=== PATIENT | female | born 1990 ===

== ENCOUNTER 2021-07-25 15:56 | Emergency (ER) | payer OTHER, BC, MEDICAID, SELFPAY ==
[2021-07-25 16:01] VITALS: BP 147/89; PULSE 106; RESP 18; TEMP 35.9; O2SAT 98; BMI 52.1
[2021-07-25 16:19] LABS: UPreg QC Valid YES; Urine Pregnancy NEGATIVE (NEGATIVE)
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
== END 2021-07-25 17:09 | disposition home or self-care (01) ==
PROVIDERS: Emergency Provider Emergency Medicine; PCP Internal Medicine
DX: T14.8XXA Other injury of unspecified body region, initial encounter (principal); V49.40XA Driver injured in collision with unspecified motor vehicles in traffic accident, initial encounter; Y93.9 Activity, unspecified; Y92.481 Parking lot as the place of occurrence of the external cause; Y99.9 Unspecified external cause status
CPT/HCPCS: 81025; 99283; 99284

== ENCOUNTER 2022-12-28 09:10 | Outpatient (REF) | payer OTHER, SELFPAY ==
[2022-12-28 09:26] LABS: MANUAL DIFF FLAG NO
[2022-12-28 09:44] LABS: Basophils Absolute Auto 0.1 X10*3/uL (0.0-0.2); Basophils Percent Auto 0.8 % (0-2); Eosinophils Absolute Auto 0.3 X10*3/uL (0.0-0.4); Eosinophils Percent Auto 4.2 % (0-4); Hemoglobin 15.5 g/dl (12.0-16.0); Imm Gran Abs Auto 0.03 X10*3/uL (0.00-0.03); Imm Gran Pct Auto 0.5 % (0.0-0.4); Lymphocytes Absolute Auto 1.3 X10*3/uL (1.2-4.9); Lymphocytes Percent Auto 20.7 % (20-40); Mean Corpuscular HGB Conc 34.4 g/dl (31.0-35.0); Mean Corpuscular Hemoglobin 28.9 pg (27.0-33.0); Monocytes Absolute Auto 0.7 X10*3/uL (0.1-1.2); Monocytes Percent Auto 10.4 % (2-11); Neutrophils Absolute Auto 4.1 x10*3/uL (2.0-8.3); Neutrophils Percent Auto 63.4 % (45-73); Platelet Count 348 X10*3/uL (160-400); Red Blood Count 5.36 X10*6/uL (4.20-5.50); White Blood Count 6.5 X10*3/uL (4.8-10.8)
[2022-12-28 10:24] LABS: Alanine Aminotransferase 149 U/L (0-31); Albumin Level 4.1 g/dL (3.5-5.0); Alkaline Phosphatase 104 U/L (39-117); Anion Gap 14 (12-20); Aspartate Amino Transferase 100 U/L (5-31); Bilirubin Total 1.1 mg/dL (0.0-1.0); Blood Urea Nitrogen 11 mg/dL (9-16); Calcium 9.4 mg/dL (8.4-10.2); Carbon Dioxide 28 mmol/L (22-29); Chloride 104 mmol/L (96-108); Cholesterol 134 mg/dL; Estimated Glomerular Filt Rate > 60; Glucose Random 105 mg/dL (60-115); HDL Cholesterol 22 mg/dL; LDL Cholesterol Calculated 90 mg/dl; Potassium 3.7 mmol/L (3.3-5.1); Sodium 142 mmol/L (135-145); Total Protein 7.4 g/dL (6.5-8.0); Triglycerides 111 mg/dL
[2022-12-28 10:26] LABS: TSH reflex Free T4 1.15 uIU/mL (0.32-4.0)
== END 2022-12-28 09:11 | disposition home or self-care (01) ==
LOC: HO.LAB 09:10
PROVIDERS: PCP Internal Medicine; Visit Provider Nurse Practitioner Family
DX: Z13.0 Encounter for screening for diseases of the blood and blood-forming organs and certain disorders involving the immune mechanism (principal); Z13.29 Encounter for screening for other suspected endocrine disorder; Z13.220 Encounter for screening for lipoid disorders; R19.7 Diarrhea, unspecified
CPT/HCPCS: 36415; 80053; 80061; 84443; 85025

== ENCOUNTER 2022-12-29 12:41 | Outpatient (REF) | payer OTHER, SELFPAY ==
[2022-12-29 14:59] LABS: INTERNATIONAL NORM RATIO 1.1 (0.9-1.1)
[2022-12-29 15:02] LABS: Estimated Average Glucose 100 mg/dL; Hemoglobin A1c % 5.1 %
[2022-12-29 15:23] LABS: Alanine Aminotransferase 131 U/L (0-31); Albumin Level 4.1 g/dL (3.5-5.0); Alkaline Phosphatase 109 U/L (39-117); Aspartate Amino Transferase 75 U/L (5-31); Bilirubin Direct 0.3 mg/dL (0.0-0.5); Bilirubin Total 0.8 mg/dL (0.0-1.0); Total Protein 7.2 g/dL (6.5-8.0)
[2023-01-01 03:46] LABS: HBc Num1 0.18 S/CO (0.00-0.79); HBsAGNum1 0.35 S/CO (0.00-0.99); Hepatitis A Antibody IgM 0.15 Index (0-0.79); Hepatitis B Core Antibody Nonreactive (Nonreactive); Hepatitis B Surface Antigen Negative (Negative); ~HepC Num1 0.15 S/CO (0.00-0.79); ~Hepatitis A Antibody IgM Nonreactive (Nonreactive); ~Hepatitis B Surface Antibody NONREACTIVE (Nonreactive); ~Hepatitis C Antibody Nonreactive (Nonreactive)
== END 2022-12-29 12:42 | disposition home or self-care (01) ==
LOC: HO.LAB 12:41
PROVIDERS: PCP Nurse Practitioner Family; Referring Provider Nurse Practitioner Family; Visit Provider Surgery
DX: E66.01 Morbid (severe) obesity due to excess calories (principal); R10.9 Unspecified abdominal pain; R79.89 Other specified abnormal findings of blood chemistry; E65 Localized adiposity; Z68.43 Body mass index [BMI] 50.0-59.9, adult; Z87.59 Personal history of other complications of pregnancy, childbirth and the puerperium
CPT/HCPCS: 36415; 80076; 83036; 84134; 85610; 86704; 86706; 86709; 86803; 87340; 99202

== ENCOUNTER 2023-01-18 07:17 | Outpatient (REF) | payer OTHER, SELFPAY ==
--- NOTE | ~2023-01-18 | CT_ITS ---
EXAMINATION: CT ABDOMEN AND PELVIS WITH CONTRAST CLINICAL INFORMATION: Valsalva to assess for hernia. COMPARISON: CT of 08/11/2010. TECHNIQUE: Multidetector volumetric images were obtained from the superior aspect of the liver through the pubic symphysis following administration 85 mL of Omnipaque 350 intravenous contrast. Sagittal and coronal reformatted images were obtained on the technologist's workstation. Oral contrast: Yes This CT examination was performed using dose optimization techniques as appropriate, variously including the following: *Automated exposure control *Adjustment of mA and/or kV according to patient size (this includes techniques or standardized protocols for targeted exams where dose is matched to indication/reason for exam; i.e. extremities or head) *Use of iterative reconstruction technique DLP: 1915 mGy-cm FINDINGS: LUNG BASES: The visualized lung bases are unremarkable. LIVER, GALLBLADDER, AND BILIARY TREE: Enlarged fatty liver without discrete mass or ductal dilatation. The gallbladder is unremarkable with no evidence of radiopaque gallstones, gallbladder wall thickening, or obvious pericholecystic inflammatory changes. PANCREAS: No discrete pancreatic mass. No ductal dilatation. SPLEEN: Normal size. No mass. ADRENAL GLANDS: No adrenal mass. KIDNEYS AND URETERS: The kidneys are normal in size, shape, and attenuation. No hydronephrosis, hydroureter, or calculi seen. No perinephric stranding. BLADDER: Unremarkable. GASTROINTESTINAL TRACT: The small bowel is normal in caliber. No mesenteric mass or fluid. The appendix is not discretely seen. No pericecal inflammatory changes. The large bowel is normal in caliber no evidence of colitis. ABDOMINAL WALL: There is generalized laxity of the abdominal wall with diastases recti measuring 6 cm. There is a small fat-containing umbilical hernia which is slightly more prominent with Valsalva. The hernia neck measures 7 x 8 mm. The hernia sac measures 1.0 x 1.7 x 1.5 cm. LYMPH NODES: No adenopathy. VASCULAR: No aortic aneurysm. PELVIC VISCERA: The uterus and adnexa are unremarkable. An IUD is in place. OSSEOUS STRUCTURES: Degenerative changes in the spine. No suspicious osseous lesions. CT/CT abdomen pelvis w IV con IMPRESSION: Small fat-containing umbilical hernia. Fleischner guidelines were followed.
--- NOTE | ~2023-01-18 | US_ITS ---
EXAMINATION: US ABDOMEN COMPLETE CLINICAL INFORMATION: Other specified abnormal findings of blood chemistry. COMPARISON: CT abdomen and pelvis 01/18/2023. TECHNIQUE: Real-time imaging of the abdominal viscera. FINDINGS: PANCREAS: Normal. ABDOMINAL AORTA: The proximal, mid, and distal segments are normal in caliber. INFERIOR VENA CAVA: Visualized portions are normal. LIVER: The liver is enlarged. The liver contour is normal. There is diffuse increased liver parenchymal echogenicity, consistent with hepatic steatosis. No focal hepatic lesion. There is no intrahepatic biliary duct dilatation seen. GALLBLADDER: Normal. The gallbladder is physiologically distended without evidence of stones, sludge, polyps, wall thickening or pericholecystic fluid. COMMON BILE DUCT: Normal in caliber measuring 0.6 cm in diameter. RIGHT KIDNEY: Normal. No hydronephrosis. No renal calculi or focal parenchymal lesions. The kidney measures 11.7 cm in maximum dimension. LEFT KIDNEY: Normal. No hydronephrosis. No renal calculi or focal parenchymal lesions. The kidney measures 12.0 cm in maximum dimension. SPLEEN: Normal. The spleen measures 11.5 cm in maximum dimension. FREE FLUID: None. US/US abdomen complete IMPRESSION: Enlarged fatty liver. No biliary ductal dilatation.
[2023-01-18] MEDS: Barium Sulfate Oral (Berry) 450 ML ORAL.SUSP 900 ML PO (09:56)
[2023-01-18] MEDS: iohexoL 350 MG/ML 100 ML INFUS..BTL IV (09:57)
== END 2023-01-18 07:18 | disposition home or self-care (01) ==
LOC: HO.CT 07:17
PROVIDERS: PCP Nurse Practitioner Family; Visit Provider Surgery
DX: R10.9 Unspecified abdominal pain (principal); E66.01 Morbid (severe) obesity due to excess calories; Z68.43 Body mass index [BMI] 50.0-59.9, adult; R79.89 Other specified abnormal findings of blood chemistry
CPT/HCPCS: 74177; 76700; Q9967

== ENCOUNTER → 2023-02-05 10:11 | Outpatient (BNVA) | payer OTHER, SELFPAY | PROVIDERS: PCP Nurse Practitioner Family; Visit Provider Surgery | DX: K76.0 Fatty (change of) liver, not elsewhere classified (principal); R79.89 Other specified abnormal findings of blood chemistry; R10.9 Unspecified abdominal pain; E66.01 Morbid (severe) obesity due to excess calories; Z68.43 Body mass index [BMI] 50.0-59.9, adult | CPT/HCPCS: 99212 ==

== ENCOUNTER → 2023-03-23 13:00 | Outpatient (BNVA) | payer OTHER, SELFPAY | PROVIDERS: PCP Nurse Practitioner Family; Visit Provider Physician Assistant Surgical ==

== ENCOUNTER 2023-04-05 13:59 | Outpatient (AMB) | payer OTHER, SELFPAY ==
--- NOTE | 2023-04-05 14:01 | A.OFFVIS_ITS ---
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 Her goal is to be healthy.. She reports first being concerned about her weight age 9. DAISY - *, no therapy now, . She has tried multiple methods of weight loss including Ali, Phentermine, diett s without permanent results. She lives with her and 2 children. She works 2-3 days per week varying schedules, 1 overnight per week 5pm - 8 am. She wakes at: 9am bed at 11 pm Breakfast:9:15 am - breakfast sandwich with sidhu, egg, cheese. Coffee - with sugar and black. OJ. Lunch:12 pm - sandwich or tacos Coke 0 or Snapple Dinner: 6pm - shepherds pie with broccoli, chicken and rice- vegetables 4d/ week. water or Coke 0 or iced tea After dinner: frozen fruit pop, pop corn, or sweets - one per night. Other snacks: mid afternoon - popcorn or fruit or frozen snack Liquids: Diet Soda, sweetened drinks daily Alcohol intake: no ETOH, tobacco: none, marijuana: daily use edibles and smoking Exercise: has membership but no childcare, has dumb bells , has videos Last mammogram: too young Last pap smear: up to date control method: IUD DAISY: 8 ESS:2 GERD0: QOL:120 PFSH Medical History Diarrhea Elevated LFTs Hernia Sciatica Surgical History History of History of tonsillectomy Family History Mother No problems noted. Father Mental health disorder Substance use disorder Maternal Grandmother Hypertension Paternal Grandmother Diabetes Social History Housing: House Alcohol intake: current Alcohol intake frequency: holidays/special occasions only Alcohol type: wine Patient Tobacco Use Status: Never used Tobacco e-Cigarette/Vaping Use: Never Used Second Hand Smoke Exposure: No Substance Use Type: Marijuana service: No Current occupational status: employed Current occupational exposures/hazards: No Cognitive needs: No Hearing needs: No Vision needs: No Physical Exam Const General: cooperative, no acute distress and well developed Nutritional Appearance: obese Orientation/consciousness: patient oriented x3 HEENT Head: Yes normal to inspection Neck Neck: Yes normal visual inspection Thyroid: Thyroid normal Resp Effort & Inspection: normal respiratory effort Auscultation: clear to auscultation bilaterally Cardio Rate: regular rate Rhythm: regular rhythm Heart sounds: S1 normal heart sound present, S2 normal heart sound present and no murmurs GI Inspection: No distended and Yes obesity Palpation (GI): Soft to palpation, nontender and no guarding Skin General skin exam: no rashes or lesions noted and other (warm and dry) Wounds: no wounds Hair: normal Neuro General: patient oriented x3 Extrem General: Yes no pedal edema and Yes no calf tenderness Psych Attitude: cooperative Thought process: Normal thought process present Thought content: Normal thought content present Insight: Good insight present (Psych) Judgement: Good judgement present (Psych) Assessment & Plan Assessment & Plan (1) Morbid (severe) obesity due to excess calories: Code(s): E66.01 - Morbid (severe) obesity due to excess calories Plan: This is a 32 yo woman with morbid obesity who will start SWL program to prepare for bariatric surgery. Blood work, h pylori , CXR, ECG, Abd ULS and UGI have been ordered. She is being scheduled for RD and BH initial consultations. She will start SWL classes and watch at 3 classes before her next appt with Saniya. 1. Adequate sleep of 7-8 hours per night discussed 2. Healthy meal plan - stop skipping meals and stop all sweetened drinks All meals/MR's need to take 20 minutes to complete coffee 9am - no sugar 10:30 am - 30 gram shake 1 pm - 30 gram shake 3:30 pm- bar or yogurt 6 pm- dinner of 6 oz lean protein, 8 oz vegetable, 1 serving fruit 9 pm- bar Exercise - Cardio 4 d week - start with TBP or LS 2 miles or any other video for 30 minutes - goal of 5d/ week. The importance of avoiding and breast feeding for at least 18 months after bariatric surgery was discussed in the information session and was reinforced today. Has IUD Pt will purchase body composition analyzer (recommended list given to patient) and weight herself weekly. Next appt with me in 3 weeks. Text me with any questions and weekly weights. Patient is morbidly obese and is not considered stable at this time.?I spent a total of 60 minutes reviewing/updating records, examining the patient and counseling the patient on weight management as detailed above. (2) Pre-op evaluation: Code(s): Z01.818 - Encounter for other preprocedural examination Orders: Orders Vitamin B12 and Folate Today E66.01 - Morbid (severe) obesity due to excess calories, K76.0 - Fatty (change of) liver, not elsewhere classified, Z01.818 - Encounter for other preprocedural examination Comprehensive Met. Panel Today E66.01 - Morbid (severe) obesity due to excess calories, K76.0 - Fatty (change of) liver, not elsewhere classified, Z01.818 - Encounter for other preprocedural examination C Reactive Protein Today E66.01 - Morbid (severe) obesity due to excess calories, K76.0 - Fatty (change of) liver, not elsewhere classified, Z01.818 - Encounter for other preprocedural examination Ferritin Today E66.01 - Morbid (severe) obesity due to excess calories, K76.0 - Fatty (change of) liver, not elsewhere classified, Z01.818 - Encounter for other preprocedural examination Hemoglobin A1c Today E66.01 - Morbid (severe) obesity due to excess calories, K76.0 - Fatty (change of) liver, not elsewhere classified, Z01.818 - Encounter for other preprocedural examination Insulin Today E66.01 - Morbid (severe) obesity due to excess calories, K76.0 - Fatty (change of) liver, not elsewhere classified, Z01.818 - Encounter for other preprocedural examination IRON PROFILE Today E66.01 - Morbid (severe) obesity due to excess calories, K76.0 - Fatty (change of) liver, not elsewhere classified, Z01.818 - Encounter for other preprocedural examination Lipid Panel Today E66.01 - Morbid (severe) obesity due to excess calories, K76.0 - Fatty (change of) liver, not elsewhere classified, Z01.818 - Encounter for other preprocedural examination PTHI Today E66.01 - Morbid (severe) obesity due to excess calories, K76.0 - Fatty (change of) liver, not elsewhere classified, Z01.818 - Encounter for other preprocedural examination TSH reflex Free T4 Today E66.01 - Morbid (severe) obesity due to excess calories, K76.0 - Fatty (change of) liver, not elsewhere classified, Z01.818 - Encounter for other preprocedural examination Vitamin A Today E66.01 - Morbid (severe) obesity due to excess calories, K76.0 - Fatty (change of) liver, not elsewhere classified, Z01.818 - Encounter for other preprocedural examination Vitamin B1 Today E66.01 - Morbid (severe) obesity due to excess calories, K76.0 - Fatty (change of) liver, not elsewhere classified, Z01.818 - Encounter for other preprocedural examination Vitamin D 25-OH Total Today E66.01 - Morbid (severe) obesity due to excess calories, K76.0 - Fatty (change of) liver, not elsewhere classified, Z01.818 - Encounter for other preprocedural examination Zinc Today E66.01 - Morbid (severe) obesity due to excess calories, K76.0 - Fatty (change of) liver, not elsewhere classified, Z01.818 - Encounter for other preprocedural examination ECG 12 lead EKG Today E66.01 - Morbid (severe) obesity due to excess calories, K76.0 - Fatty (change of) liver, not elsewhere classified, Z01.818 - Encounter for other preprocedural examination FL upper GI w air Today E66.01 - Morbid (severe) obesity due to excess calories, K76.0 - Fatty (change of) liver, not elsewhere classified, Z01.818 - Encounter for other preprocedural examination Complete Blood Count Auto Diff Today E66.01 - Morbid (severe) obesity due to excess calories, K76.0 - Fatty (change of) liver, not elsewhere classified, Z01.818 - Encounter for other preprocedural examination H Pylori Breath Test Today E66.01 - Morbid (severe) obesity due to excess calories, K76.0 - Fatty (change of) liver, not elsewhere classified, Z01.818 - Encounter for other preprocedural examination US abdomen comp w elastography Today E66.01 - Morbid (severe) obesity due to excess calories, K76.0 - Fatty (change of) liver, not elsewhere classified, Z01.818 - Encounter for other preprocedural examination XR chest 2V Today E66.01 - Morbid (severe) obesity due to excess calories, K76.0 - Fatty (change of) liver, not elsewhere classified, Z01.818 - Encounter for other preprocedural examination Referrals Behavioral Health Referral E66.01 - Morbid (severe) obesity due to excess calories, K76.0 - Fatty (change of) liver, not elsewhere classified, Z01.818 - Encounter for other preprocedural examination Nutrition/Dietitian Referral E66.01 - Morbid (severe) obesity due to excess calories, K76.0 - Fatty (change of) liver, not elsewhere classified, Z01.818 - Encounter for other preprocedural examination Coding Level of Care Code New Pt Level 5 (53264) Diagnoses Morbid (severe) obesity due to excess calories E66.01 Pre-op evaluation Z01.818
[2023-04-05 14:02] VITALS: BP 123/70; PULSE 94; TEMP 36.6; O2SAT 96; BMI 54.9
== END 2023-04-05 14:58 | disposition home or self-care (01) ==
PROVIDERS: PCP Nurse Practitioner Family; Visit Provider Physician Assistant
DX: E66.01 Morbid (severe) obesity due to excess calories (principal); Z68.43 Body mass index [BMI] 50.0-59.9, adult
CPT/HCPCS: 99205

== ENCOUNTER → 2023-04-05 13:59 | Outpatient (BNVA) | payer OTHER, SELFPAY | PROVIDERS: PCP Nurse Practitioner Family; Visit Provider Physician Assistant | DX: Z01.818 Encounter for other preprocedural examination (principal); E66.01 Morbid (severe) obesity due to excess calories; Z68.43 Body mass index [BMI] 50.0-59.9, adult | CPT/HCPCS: 99202 ==

== ENCOUNTER 2023-04-17 10:10 | Outpatient (REF) | payer OTHER, SELFPAY ==
--- NOTE | ~2023-04-17 | XR_ITS ---
EXAMINATION: XR CHEST CLINICAL INFORMATION: Morbid/severe obesity due to excess calories COMPARISON: None available. TECHNIQUE: 2 views of the chest were obtained. FINDINGS: No significant abnormality is noted involving the heart, lungs, mediastinum, bony thorax or soft tissues. XR/XR chest 2V IMPRESSION: Unremarkable chest examination.
--- NOTE | 2023-04-17 10:21 | ECG_ITS ---
Test Reason : MORBID OBESITY Blood Pressure : / mmHG Vent. Rate : 082 BPM Atrial Rate : 082 BPM P-R Int : 156 ms QRS Dur : 092 ms QT Int : 370 ms P-R-T Axes : 042 001 046 degrees QTc Int : 432 ms Normal sinus rhythm Normal ECG No previous ECGs available Referred By: Shanti Wells Electronically Signed By:HORACE ALEJANDRA MD
[2023-04-17 10:33] LABS: MANUAL DIFF FLAG NO
[2023-04-17 11:30] LABS: Basophils Absolute Auto 0.1 X10*3/uL (0.0-0.2); Eosinophils Absolute Auto 0.3 X10*3/uL (0.0-0.4); Eosinophils Percent Auto 3.5 % (0-4); Hematocrit 44.8 % (37.0-47.0); Hemoglobin 15.1 g/dl (12.0-16.0); Imm Gran Abs Auto 0.04 X10*3/uL (0.00-0.03); Imm Gran Pct Auto 0.6 % (0.0-0.4); Lymphocytes Absolute Auto 1.8 X10*3/uL (1.2-4.9); Lymphocytes Percent Auto 25.6 % (20-40); Mean Corpuscular HGB Conc 33.7 g/dl (31.0-35.0); Mean Corpuscular Hemoglobin 28.8 pg (27.0-33.0); Mean Corpuscular Volume 85.5 fL (80.0-98.0); Mean Platelet Volume 9.3 fL (9.4-12.3); Monocytes Absolute Auto 0.4 X10*3/uL (0.1-1.2); Monocytes Percent Auto 5.2 % (2-11); Neutrophils Absolute Auto 4.5 x10*3/uL (2.0-8.3); Neutrophils Percent Auto 64.1 % (45-73); Platelet Count 351 X10*3/uL (160-400); Red Blood Count 5.24 X10*6/uL (4.20-5.50); Red Cell Distribution Width 12.7 % (11.0-16.0); White Blood Count 7.1 X10*3/uL (4.8-10.8)
[2023-04-17 11:32] LABS: Estimated Average Glucose 88 mg/dL; Hemoglobin A1c % 4.7 %
[2023-04-17 12:57] LABS: Alanine Aminotransferase 71 U/L (0-31); Albumin Level 4.2 g/dL (3.5-5.0); Alkaline Phosphatase 77 U/L (39-117); Anion Gap 10 (12-20); Aspartate Amino Transferase 49 U/L (5-31); Bilirubin Total 0.8 mg/dL (0.0-1.0); Blood Urea Nitrogen 14 mg/dL (9-16); Calcium 9.7 mg/dL (8.4-10.2); Carbon Dioxide 26 mmol/L (22-29); Chloride 105 mmol/L (96-108); Cholesterol 168 mg/dL; Estimated Glomerular Filt Rate > 60; Glucose Random 90 mg/dL (60-115); HDL Cholesterol 35 mg/dL; Iron 94 mcg/dL (30-160); LDL Cholesterol Calculated 110 mg/dl; Percent Iron Saturation 29 % (15-50); Potassium 3.9 mmol/L (3.3-5.1); Sodium 137 mmol/L (135-145); Total Iron Binding Capacity 324 mcg/dL (228-428); Triglycerides 116 mg/dL; Unsaturated Iron Binding 230 ug/dL
[2023-04-17 13:00] LABS: Ferritin 211 ng/mL (10-122); Insulin 30 uU/mL (2-29); TSH reflex Free T4 1.82 uIU/mL (0.32-4.0); Vitamin D 25-OH Total 31.6 ng/mL (>30)
[2023-04-17 13:27] LABS: Folate 9.1 ng/mL (> or = 4.0); Vitamin B12 874 pg/mL (200-900)
[2023-04-19 19:09] LABS: Calcium (PTHI) 9.6 mg/dL (8.6-10.2); PTHI 52 pg/mL (16-77)
[2023-04-20 16:53] LABS: Zinc 78 mcg/dL (60-130)
[2023-04-23 12:48] LABS: Vitamin B1 7 nmol/L (8-30)
[2023-04-24 20:28] LABS: Vitamin A 56 mcg/dL (38-98)
== END 2023-04-17 10:11 | disposition home or self-care (01) ==
LOC: HO.LAB 10:10
PROVIDERS: PCP Nurse Practitioner Family; Visit Provider Physician Assistant
DX: Z01.818 Encounter for other preprocedural examination (principal); E66.01 Morbid (severe) obesity due to excess calories; K76.0 Fatty (change of) liver, not elsewhere classified
CPT/HCPCS: 36415; 71046; 80053; 80061; 82306; 82607; 82728; 82746; 83036; 83525; 83540; 83970; 84425; 84443; 84590; 84630; 85025; 86140; 93005

== ENCOUNTER → 2023-04-17 10:21 | Outpatient (BNV) | payer OTHER, SELFPAY | PROVIDERS: PCP Nurse Practitioner Family; Visit Provider Internal Medicine Cardiovascular Disease | DX: E66.01 Morbid (severe) obesity due to excess calories (principal) | CPT/HCPCS: 93010 ==

== ENCOUNTER 2023-04-24 11:00 | Outpatient (AMB) | payer OTHER, SELFPAY ==
--- NOTE | 2023-04-24 11:10 | A.OFFWM_ITS ---
Intake Intake Visit Reasons: VIDEO BH Intake Allergies cat dander [CATS] Allergy (Severe, Verified 04/05/23 14:06) SOB SWELLING ITCHY pork derived (porcine) [PORK DERIVED (PORCINE)] Allergy (Severe, Verified 04/05/23 14:06) VOMITING, THROAT SWELLING PFSH Medical History Diarrhea Elevated LFTs Hernia Sciatica Surgical History History of History of tonsillectomy Family History Mother No problems noted. Father Mental health disorder Substance use disorder Maternal Grandmother Hypertension Paternal Grandmother Diabetes Social History Housing: House Alcohol intake: current Alcohol intake frequency: holidays/special occasions only Alcohol type: wine Patient Tobacco Use Status: Never used Tobacco e-Cigarette/Vaping Use: Never Used Second Hand Smoke Exposure: No Substance Use Type: Marijuana service: No Current occupational status: employed Current occupational exposures/hazards: No Cognitive needs: No Hearing needs: No Vision needs: No Behavioral Health Assessment Weight Management Therapy Therapy Notes Details Pt reported that she is looking to have weight loss surgery to help improve her health and quality of life. Pt reported therapy in the past as a young adult for about 4 years for family trauma. She reported previous inpatient psychiatric admissions as a teenager but not in her adult life. She denied any problems with drugs or alcohol. She denied a history of being diagnosed with an eating disorder but suspects she may have had one because she has had weight issues since age 9. Presenting Concerns Referral Source provider Reason for referral weight loss surgery evaluation Precipitating Event obesity Living Situation Current Living Situation Own At risk of losing current housing? No Satisfied with current living situation? Yes Comments Pt lives with her and her two children ages 5 and 1 year old. Food/Weight/Diet Expectations of change weight loss and maintenance History/Relationship with food Pt stated that she would engage in some binge eating in the past where she would have numerous snacks one after another. Chocolate, grilled cheese, Godinez's pie, fettucine olga, and other very rich carb loaded foods such as pasta, bread, cheese. Also desserts at night when she would get a sweet tooth and have brownies and chips. In the past she would have some soda and ice tea occasionally. History/Relationship with weight Pt stated that she has always had issues with her weight since age 9. History/Relationship with dieting First diet at age 9. Various diets, in 2014 did 6 months exercise and eating healthy (high protein) and lost 60lbs. She reported gaining the weight back and more. Binge Eating Do you frequently eat large amounts of food in short periods of time, not feeling physically hungry? No Do you feel out of control when you eat a large amount of food in a short period of time? No Do you eat large amounts of food rapidly and typically alone? Yes Night Eating Do you wake up at least once during the night to eat? No If you wake up in the night, do you find that it is necessary to eat something in order to fall back asleep? No Do you have little or no appetite in the morning and feel very hungry in the evening, often overeating between dinner and when you go to bed? No Social History Family history and relationship Pt is and has two children ages 5 and 1 years old. She reported minimal family support Pt stated that she was born and raised in [place] by her grandmother, mother and mother's . She has two half brothers and one half sister. She reported history of family trauma and that her family is addicts. Parental/Familial relationship advisor obligations children Developmental history and status no issues Social support , Community support some yarsani support Sabianism/Spirituality [employer] Legal Involvement and History Current or historical involvement with the legal system? none Education Highest grade completed associates in [email or web address] science Preferred learning style Auditory, Verbal, Written and Learn by doing Currently enrolled in educational program? No Interested in further educational program? No Educational Interests/Skills Patient works as a mortician Employment Employment Status [employer] Wants help to find employment? No Meaningful activities exercise Financial Situation Describe current financial situation Comfortable Financial assistance? None Service Service? No Mental Health and Addiction Treatment Current/Past substance abuse? No Current/Past addictive behavior concerns? No Medical and Physical Health Summary Physical exam in the last year? No Medications Is the patient compliant with medications? Yes Does the patient have Bui Guardian in place? Not applicable Does the patient use complimentary health approaches? No Trauma/Abuse History History of trauma? Yes Questionnaires PHQ-9 Over the last 2 weeks, how often have you been bothered by any of the following problems? 1. Little interest or pleasure in doing things: not at all 2. Feeling down, depressed, or hopeless: more than half the days 3. Trouble falling or staying asleep, or sleeping too much: not at all 4. Feeling tired or having little energy: several days 5. Poor appetite or overeating: nearly every day 6. Feeling bad about yourself - or that you are a failure or have let yourself or your family down: nearly every day 7. Trouble concentrating on things, such as reading the newspaper or watching television: not at all 8. Moving or speaking so slowly that other people could have noticed. Or the opposite - being so fidgety or restless that you have been moving around a lot more than usual: not at all 9. Thoughts that you would be better off or of hurting yourself in some way: not at all Total score: 9 Source: Developed by Drs. Darvin Gorman, Tamara Smith, Santiago Lino and colleagues, with an educational sophie from [employer]. Binge Eating Scale Group 1 A. I don't feel self-conscious about my wt. or body size when I'm with others. B. I feel concerned about how I look to others, but it normally does not make me fell disappointed with myself C. I do get self-conscious about my appearance and wt. which makes me feel disappointed in myself. D. I feel very self-conscious about my wt. and frequently I feel intense shame and disgust for myself. I try to avoid social contacts because of my self- consciousness. Response Group 1: D Group 2 A. I don't have any difficulty eating slowly in the proper manner. B. Although I seem to gobble down foods, I don't end up feeling stuffed because of eating to much. C. At times, I tend to eat quickly and then, I feel uncomfortably full afterwards. D. I have the habit of bolting down my food, without really chewing it. When this happens I usually feel uncomfortably stuffed because I've eaten to much. Response Group 2: B Group 3 A. I feel capable to control my eating urges when I want to. B. I feel like I have failed to control my eating more than the average person. C. I feel utterly helpless when it comes to feeling in control of my eating urges. D. Because I feel so helpless about controlling my eating I have become very calixto perate about trying to get control. Response Group 3: D Group 4 A. I don't have the habit of eating when I'm bored. B. I sometimes eat when I'm bored, but often I'm able to get busy and get my mind off food. C. I have a regular habit of eating when I'm bored, but occasionally, I can use some other activity to get my mind off eating. D. I have a strong habit of eating when I'm bored. Nothing seems to help me breath the habit. Response Group 4: B Group 5 A. I'm usually physically hungry when I eat something. B. Occasionally, I eat something on impulse even though I really am not hungry. C. I have the regular habit of eating foods, that I might not really enjoy, to satisfy a hungry feeling even though physically, I don't need the food. D. Although I'm not physically hungry, I get a hungry feeling in my mouth that only seems to be satisfied when I eat a food, like sandwich, that fills my mouth . Sometimes, when I eat the food to satisfy my mouth hunger, I then spit the food out so I won't gain weight. Response Group 5: B Group 6 A. I don't feel any guilt or self-hate after I overeat. B. After I overeat, occasionally I feel guilt or self-hate. C. Almost all the time I experience strong guilt or self-hate after I overeat. Response Group 6: C Group 7 A. I don't lose total control of my eating when dieting even after periods when I overeat. B. Sometimes when I eat a forbidden food on a diet, I feel like I blew it and eat even more. C. Frequently, I have the habit of saying to myself, I've blown it now, why not go all the way, when I overeat on a diet. When that happens I eat more. D. I have a regular habit of starting a strict diets for myself but I break the diets by going on an eating binge. My life seems to be either a feast or famine. Response Group 7: C Group 8 A. I rarely eat so much food that I feel uncomfortably stuffed afterwards. B. Usually about once a month, I each such a quantity of food, I end up feeling very stuffed. C. I have regular periods during the month when I eat large amounts of food, either at mealtime or at snacks. D. I eat so much food that I regularly feel quite uncomfortable after eating and sometimes a bit nauseous. Response Group 8: B Group 9 A. My level of calorie intake does not go up very high or go down very low on a regular basis. B. Sometimes after I overeat, I will try to reduce my caloric intake to almost nothing to compensate for the excess calories I've eaten. C. I have a regular habit of overeating during the night. It seems that my routine is not to be hungry in the morning but overeat in the evening. D. In my adult years, I have had week-long periods where I practically starve myself. This follows periods when I overeat. It seems I live a life of either feast or famine. Response Group 9: B Group 10 A. I usually am able to stop eating when I want to. I know when enough is enough. B. Every so often, I experience a compulsion to eat which I can't seem to control. C. Frequently, I experience strong urges to eat which I seem unable to control, but at other times I can control my eating urges. D. I feel incapable of controlling urges to eat. I have a fear of not being able to stop eating voluntarily. Response Group 10: C Group 11 A. I don't have any problem stopping eating when I feel full. B. I usually can stop eating when I feel full but occasionally overeat leaving me feeling uncomfortably stuffed. C. I have a problem stopping eating once I start and usually I feel uncomfortably stuffed after I eat a meal. D. Because I have a problem not being able to stop eating when I want, I sometimes have to induce vomiting to relieve my stuffed feeling. Response Group 11: A Group 12 A. I seem to eat just as much when I'm with others, Family social gatherings as when I'm by myself. B. Sometimes, when I'm with other persons, I don't eat as much as I want to eat because I'm self-conscious about my eating. C. Frequently, I eat only a small amount of food when others are present, because I'm very embarrassed about my eating. D. I feel so ashamed about overeating that I pick times to overeat when I know no one will see me. I feel like a closet eater. Response Group 12: B Group 13 A. I eat three meals a day with only an occasional between meal snack. B. I eat 3 meals a day, but I also normally snack between meals. C. When I am snacking heavily, I get in the habit of skipping regular meals. D. There are regular periods when I seem to be continually eating, with no planned meals. Response Group 13: D Group 14 A. I don't think much about trying to control unwanted eating urges. B. At least some of the time, I feel my thoughts are pre-occupied with trying to control my eating urges. C. I feel that frequently I spend much time thinking about how much I ate or about trying not to eat anymore. D. It seems to me that most of my waking hours are pre-occupied by thoughts about eating or not eating. I feel like I'm constantly struggling not to eat. Response Group 14: B Group 15 A. I don't think about food a great deal. B. I have strong craving for food but they last only for brief periods of time. C. I have days when I can't seem to think about anything else but food. D. Most of my days seem to be pre-occupied with thoughts about food. I feel like I live to eat. Response Group 15: B Group 16 A. I usually know whether or not I'm physically hungry. I take the right portion of food to satisfy me. B. Occasionally, I feel uncertain about knowing whether or not I'm physically hungry. A these times it's hard to know how much food I should take to satisfy me. C. Even though I might know how many calories I should eat, I don't have any idea what is a normal amount of food for me. Response Group 16: C Binge Eating Score: 25 Score less than 17 Minimal Risk Score between 18-26 Moderate Risk Score between 27-46 High Risk Assessment & Plan Assessment & Plan (1) Binge-eating disorder, in full remission, mild: Code(s): F50.81 - Binge eating disorder (2) Morbid (severe) obesity due to excess calories: Code(s): E66.01 - Morbid (severe) obesity due to excess calories Plan Patient reported doing well in the program. She has some distant mental health history and recent binge eating however stated that in the past year she has worked on turning to other positive outlets other than food to help cope and comfort. She was encourgaed to reach out as needed for additional help. Pt is cleared for surgery when ready. Telehealth Telehealth Location of provider rendering services: other Location of patient: address on file Patient Identification confirmed using: Name, : Yes Telehealth method: video Patient verbally consented to treatment: Yes Patient verbally consented to billing insurance company: Yes Patient informed of any privacy concerns related to visit: Yes Minutes spent on Phone/Video with Pt.: 45 Coding Level of Care Code Tele Psy Diag Eval (64442) Diagnoses Binge-eating disorder, in full remission, mild F50.81 Morbid (severe) obesity due to excess calories E66.01 Time Spent (min) 45
== END 2023-04-24 12:36 | disposition home or self-care (01) ==
LOC: HO.HBST 12:02
PROVIDERS: PCP Nurse Practitioner Family; Visit Provider Counselor Mental Health
DX: F50.81 Binge eating disorder (principal); E66.01 Morbid (severe) obesity due to excess calories; Z68.43 Body mass index [BMI] 50.0-59.9, adult
CPT/HCPCS: 90791

== ENCOUNTER → 2023-04-24 11:00 | Outpatient (BNVA) | payer OTHER, SELFPAY | PROVIDERS: PCP Nurse Practitioner Family; Visit Provider Counselor Mental Health | DX: F50.81 Binge eating disorder (principal); E66.01 Morbid (severe) obesity due to excess calories ==

== ENCOUNTER 2023-04-27 07:46 | Outpatient (REF) | payer OTHER, SELFPAY ==
--- NOTE | ~2023-04-27 | US_ITS ---
EXAMINATION: US COMPLETE ABDOMEN WITH LIVER ELASTOGRAPHY CLINICAL INFORMATION: Obesity. COMPARISON: None available. TECHNIQUE: Real-time imaging of the abdominal viscera. Noninvasive ultrasound liver fibrosis assessment is performed using Saul ElastPQ point quantification shear wave elastography (2D-SWE) with a C5-2 MHz transducer. Multiple elastography samples are obtained. FINDINGS: PANCREAS: Head and body appear unremarkable. Tail not visualized. ABDOMINAL AORTA: The proximal, middle, and distal aortic segments are normal in caliber. INFERIOR VENA CAVA: Visualized portions are normal. LIVER: No focal lesion or intrahepatic biliary duct dilatation appreciated. The liver appears unremarkable in contour. Hepatopedal portal flow. The right lobe measures 18.9 cm in length. The left lobe measures 11.4 cm in length. Portal flow is towards the liver (hepatopetal). Relative compliance of the liver measures 10.0 kPa. The findings are consistent with moderate risk of clinically significant hepatic fibrosis, Metavir F2 or some F3. GALLBLADDER: The gallbladder is physiologically distended without evidence of stones, sludge, polyps, wall thickening or pericholecystic fluid. Technologist reports negative sonographic Reid's sign. COMMON BILE DUCT: Normal in caliber measuring 0.3 cm in diameter. RIGHT KIDNEY: No hydronephrosis. No renal calculi or focal parenchymal lesion identified. The kidney measures 11.6 cm in maximum dimension. LEFT KIDNEY: No hydronephrosis. No renal calculi or focal parenchymal lesion identified. The kidney measures 11.4 cm in maximum dimension. SPLEEN: The spleen measures 12.0 cm in maximum dimension. FREE FLUID: None. US/US abdomen comp w elastography IMPRESSION: Moderate risk of clinically significant fibrosis. Mild hepatomegaly.
== END 2023-04-27 07:47 | disposition home or self-care (01) ==
LOC: HO.US 07:46
PROVIDERS: PCP Nurse Practitioner Family; Visit Provider Physician Assistant
DX: Z01.818 Encounter for other preprocedural examination (principal); E66.01 Morbid (severe) obesity due to excess calories; K76.0 Fatty (change of) liver, not elsewhere classified
CPT/HCPCS: 76705; 76981

== ENCOUNTER 2023-05-03 14:46 | Outpatient (AMB) | payer OTHER, SELFPAY ==
--- NOTE | 2023-05-03 14:48 | A.OFFVIS_ITS ---
Intake VS Expanded 05/03/23 14:55 Height 5 ft 2 in Weight 277 lb 6.4 oz BMI 50.7 BP 125/71 Blood Pressure Location Rt brachial Blood Pressure Position Sitting Pulse 95 Pulse Source Pulse Oximeter Temp 97.5 F Temperature Source Temporal Artery Scan Pulse Oximetry 97 Oxygen Delivery Method Room Air Body Fat 124.8 Body Fat Percentage 45.0 Free Fat Mass 152.6 Muscle Mass 144.8 Visceral Mass 15.0 Water Mass 109.4 BMR 2,174 Intake Visit Reasons: (OV) F/U SWL Allergies cat dander [CATS] Allergy (Severe, Verified 05/03/23 14:54) SOB SWELLING ITCHY pork derived (porcine) [PORK DERIVED (PORCINE)] Allergy (Severe, Verified 05/03/23 14:54) VOMITING, THROAT SWELLING HPI HPI Comments History of Present Illness Details This is the patients second appt for SWL. Starting weight was 300.4 lbs. TBWL is lbs or % TBWL. Meal plan: work schedule changed 8:30 - Premier or Orgain shake with coffee - with UAM 11:30- Premier, Elevation - found 3 she likes 3pm - same shake no coffee 6pm - 6 oz lean proteins and (1 - 1.5 cup ) vegetables and fruit 9pm- yogurt Exercise plan: 3 -d/week. 30 - 60 minute walks - 5-[address] Leslie or dance videos - 2 d/ week. Pre op work up completed as follows: SWL classes - 12/30 BH appts - cleared RD appts - 05/08 H pylori - today Labs - done CXR and ECG - both normal ULS -hepatomegaly, R 18.9/L 11.4 UGI - 05/08 [facility] Medical History Diarrhea Elevated LFTs Hernia Sciatica Surgical History History of History of tonsillectomy Family History Mother No problems noted. Father Mental health disorder Substance use disorder Maternal Grandmother Hypertension Paternal Grandmother Diabetes Social History Housing: House Alcohol intake: current Alcohol intake frequency: holidays/special occasions only Alcohol type: wine Patient Tobacco Use Status: Never used Tobacco e-Cigarette/Vaping Use: Never Used Second Hand Smoke Exposure: No Substance Use Type: Marijuana service: No Current occupational status: employed Current occupational exposures/hazards: No Cognitive needs: No Hearing needs: No Vision needs: No Physical Exam Vital Signs: Last Vital Signs Temp 97.5 F 05/03/23 14:55 Pulse 95 05/03/23 14:55 BP 125/71 05/03/23 14:55 Pulse Ox 97 05/03/23 14:55 Oxygen Delivery Method Room Air 05/03/23 14:55 BMI result Body Mass Index 50.7 Assessment & Plan Assessment & Plan (1) Morbid (severe) obesity due to excess calories: Code(s): E66.01 - Morbid (severe) obesity due to excess calories Plan: Pt has had a fabulous start with 23 lbs or 7.7% TBWL. H pylori today and will complete pre op work up next week with RD and UGI appts. No change to meal plan. Exercise - 5 d/week. TBP - 2 d/wk - Cardio class 1d/ week. - walk fro 400 calories 2 d/week Will refer to DR Otto once all testing completed. Will schedule with me in 3 weeks. Patient is morbidly obese and is not considered stable at this time. I spent 30 minutes in total with patient reviewing/updating records, examining the patient and counseling the patient on weight management as detailed above. Coding Level of Care Code Est Pt Level 4 (58898) Diagnoses Morbid (severe) obesity due to excess calories E66.01
[2023-05-03 14:55] VITALS: BP 125/71; PULSE 95; TEMP 36.4; O2SAT 97; BMI 50.7
== END 2023-05-03 15:29 | disposition home or self-care (01) ==
PROVIDERS: PCP Nurse Practitioner Family; Visit Provider Physician Assistant
DX: E66.01 Morbid (severe) obesity due to excess calories (principal); Z68.43 Body mass index [BMI] 50.0-59.9, adult
CPT/HCPCS: 99214

== ENCOUNTER → 2023-05-03 14:46 | Outpatient (BNVA) | payer OTHER, SELFPAY | PROVIDERS: PCP Nurse Practitioner Family; Visit Provider Physician Assistant | DX: E66.01 Morbid (severe) obesity due to excess calories (principal); K76.0 Fatty (change of) liver, not elsewhere classified; Z11.2 Encounter for screening for other bacterial diseases | CPT/HCPCS: 99211; 99212 ==

== ENCOUNTER 2023-05-04 16:17 | Outpatient (REF) | payer OTHER, SELFPAY ==
[2023-05-05 10:30] LABS: H Pylori Breath Test Negative (Negative)
== END 2023-05-04 16:18 | disposition home or self-care (01) ==
LOC: HO.LNP 16:17
PROVIDERS: Visit Provider Physician Assistant
DX: Z01.818 Encounter for other preprocedural examination (principal); E66.01 Morbid (severe) obesity due to excess calories; K76.0 Fatty (change of) liver, not elsewhere classified
CPT/HCPCS: 83013

== ENCOUNTER 2023-05-08 09:52 | Outpatient (REF) | payer OTHER, SELFPAY ==
--- NOTE | ~2023-05-08 | FL_ITS ---
EXAMINATION: XR FLUOROSCOPY UPPER GI WITH AIR CLINICAL INFORMATION: Preoperative morbid obesity. COMPARISON: None available. TECHNIQUE: Standard air contrast dual thick and thin barium upper GI examination was performed. Multiple spot images were obtained. FINDINGS: The esophagus has normal caliber without evidence of stricture, mass, or mucosal abnormality. Esophageal peristalsis appears normal. No evidence of hiatus hernia or gastroesophageal reflux. The stomach has normal contour, because of pattern, without evidence of focal abnormality or mass. Normal-appearing duodenal bulb and proximal duodenum. FLUOROSCOPY TIME: 2.1 minutes. Number of images obtained: 19. DOSE AREA PRODUCT: 28.5 uGy-m2 (microgray-meter squared) FL/FL upper GI w air IMPRESSION: Normal upper GI examination.
== END 2023-05-08 09:53 | disposition home or self-care (01) ==
LOC: HO.XRAY 09:52
PROVIDERS: Visit Provider Physician Assistant
DX: Z01.818 Encounter for other preprocedural examination (principal); K76.0 Fatty (change of) liver, not elsewhere classified; E66.01 Morbid (severe) obesity due to excess calories
CPT/HCPCS: 74246; 97802

== ENCOUNTER → 2023-05-08 09:54 | Outpatient (BNV) | payer OTHER, SELFPAY | PROVIDERS: Visit Provider Radiology Diagnostic Radiology | DX: Z01.818 Encounter for other preprocedural examination (principal) | CPT/HCPCS: 74246 ==

== ENCOUNTER 2023-05-08 15:13 | Outpatient (AMB) | payer OTHER, SELFPAY ==
--- NOTE | 2023-05-08 15:09 | MHC.AMNUTRGE ---
Intake Intake Visit Reasons: VIDEO Initial Nutrition SWL Allergies cat dander [CATS] Allergy (Severe, Verified 05/03/23 14:54) SOB SWELLING ITCHY pork derived (porcine) [PORK DERIVED (PORCINE)] Allergy (Severe, Verified 05/03/23 14:54) VOMITING, THROAT SWELLING HPI Nutrition Presentation Details Starting weight was 300.4 lbs Reason for consult elevated BMI Diet Assmnt Details Meal plan from [place]ni 8:30 - Premier or Orgain shake with coffee - with UAM 11:30- Premier, Elevation - found 3 she likes 3pm - same shake no coffee 6pm - 6 oz lean proteins and (1 - 1.5 cup ) vegetables and fruit - chicken, turkey breast or steak , ground beef lean 9pm- yogurt I am happy to continue the nutrition plan for another year . Pt is very insightful, has excellent knowledge, realistic expectations Exercise: walking SWL online classes: completed. reviewed. no questions Dietary counseling reduction Who buys your food self Who prepares/cooks your food self Diagnosis Nutrition problem #1 overweight/obesity As related to (etiology) #1 excess energy intake and physical inactivity As evidenced by (sign/symptom) #1 high BMI Monitoring/Goals Nutrition problem monitoring total energy intake, level of knowledge/skill, total PRO intake, total CHO intake, weight and oral fluids Outcome progress progressing Learning/Education Readiness to learn excellent Stages of change action Educational materials provided Yes Most Recent Diabetes Results: Cholesterol 168 mg/dL 04/17/23 HDL Cholesterol 35 mg/dL 04/17/23 Triglycerides 116 mg/dL 04/17/23 Creatinine 0.82 mg/dL (0.5-1.4) 04/17/23 Blood Urea Nitrogen 14 mg/dL (9-16) 04/17/23 Sodium 137 mmol/L (135-145) 04/17/23 Potassium 3.9 mmol/L (3.3-5.1) 04/17/23 Chloride 105 mmol/L (96-108) 04/17/23 Carbon Dioxide 26 mmol/L (22-29) 04/17/23 Calcium 9.7 mg/dL (8.4-10.2) 04/17/23 AST 49 U/L (5-31) H 04/17/23 ALT 71 U/L (0-31) H 04/17/23 Total Protein 8.0 g/dL (6.5-8.0) 04/17/23 Albumin 4.2 g/dL (3.5-5.0) 04/17/23 PFSH Medical History Diarrhea Elevated LFTs Hernia Sciatica Surgical History History of History of tonsillectomy Family History Mother No problems noted. Father Mental health disorder Substance use disorder Maternal Grandmother Hypertension Paternal Grandmother Diabetes Social History Housing: House Alcohol intake: current Alcohol intake frequency: holidays/special occasions only Alcohol type: wine Patient Tobacco Use Status: Never used Tobacco e-Cigarette/Vaping Use: Never Used Second Hand Smoke Exposure: No Substance Use Type: Marijuana service: No Current occupational status: employed Current occupational exposures/hazards: No Cognitive needs: No Hearing needs: No Vision needs: No Assessment & Plan Assessment & Plan (1) Morbid (severe) obesity due to excess calories: Code(s): E66.01 - Morbid (severe) obesity due to excess calories Patient Instructions: will be an excellent candidate. Patient is cleared from a nutrition standpoint for bariatric surgery. Educational requirements have been completed. Reviewed vitamin supplementation and commitment to protein shake for several months post surgery. Encouraged communication with office as needed Telehealth Telehealth Location of provider rendering services: practice address Location of patient: address on file Patient Identification confirmed using: Name, : Yes Telehealth method: video Patient verbally consented to treatment: Yes Patient verbally consented to billing insurance company: Yes Patient informed of any privacy concerns related to visit: Yes Minutes spent on Phone/Video with Pt.: 20 Coding Level of Care Code Nutr Indiv Intake (46744) Diagnoses Morbid (severe) obesity due to excess calories E66.01 Time Spent (min) 20
== END 2023-05-08 15:30 | disposition home or self-care (01) ==
LOC: HO.HBS 15:13
PROVIDERS: Visit Provider Dietitian, Registered
DX: E66.01 Morbid (severe) obesity due to excess calories (principal)

== ENCOUNTER 2023-05-22 10:33 | Outpatient (AMB) | payer OTHER, SELFPAY ==
--- NOTE | 2023-05-22 11:50 | MHC.OFFVISWM ---
Intake VS Expanded 05/22/23 12:16 Height 5 ft 2 in Weight 267 lb BMI 48.8 Intake Visit Reasons: TV Consult/Transfer Shanti Allergies cat dander [CATS] Allergy (Severe, Verified 05/22/23 11:51) SOB SWELLING ITCHY pork derived (porcine) [PORK DERIVED (PORCINE)] Allergy (Severe, Verified 05/22/23 11:51) VOMITING, THROAT SWELLING Medication List - Last Reconciled 05/22/23 by Adarsh Frost MD thiamine HCl (vitamin B1) 50 mg PO DAILY HPI TV Consult/Transfer Shanti HPI Details Start time: 11.40am, End time: 12.26pm ?I spent 41 minutes speaking with the patient on the phone plus an additional 5 minutes reviewing and updating records for a total of 46 minutes HPI Comments History of Present Illness Details Overall weight loss: 32.2 lbs, or 10.76% TBWL Is doing 2 premade Premier protein shakes, a Pure protein or Quest protein bar, dinner (6oz protein and 8-10oz salad or vegetables and a fruit) and a Tajik yogurt Exercise: occasional walking or home videos [facility] Medical History (Updated 05/22/23 @ 11:52 by Adarsh Frost MD) Diarrhea Elevated LFTs Hernia Morbid obesity Sciatica Surgical History History of History of tonsillectomy Family History Mother No problems noted. Father Mental health disorder Substance use disorder Maternal Grandmother Hypertension Paternal Grandmother Diabetes Social History Housing: House Alcohol intake: current Alcohol intake frequency: holidays/special occasions only Alcohol type: wine Patient Tobacco Use Status: Never used Tobacco e-Cigarette/Vaping Use: Never Used Second Hand Smoke Exposure: No Substance Use Type: Marijuana service: No Current occupational status: employed Current occupational exposures/hazards: No Cognitive needs: No Hearing needs: No Vision needs: No Assessment & Plan Assessment & Plan (1) Morbid obesity: Code(s): E66.01 - Morbid (severe) obesity due to excess calories Plan: 1. Plan for lap sleeve gastrectomy including upper GI endoscopy. All tests has been completed and reviewed and the patient is cleared for the surgery. ?If diaphragmatic or ventral hernias are present at time of surgery, these will be repaired laparoscopically as well. Risks and complications were discussed in detail including possible conversion to an open procedure, anastomotic leak, bleeding requiring transfusion, small bowel obstruction, , DVT and pulmonary embolism, cardiac, or pulmonary complications, as director of psychology complications such as anastomotic ulcer, insufficient weight loss and vitamin deficiencies. I emphasized the importance of close follow-up, adherence to instructions and good communication. So far she has proven to be an excellent communicator and very compliant with all our directions accomplishing a great weight loss. I believe that she is an excellent candidate and she is ready. 2. Please change nutritional plan to one Premier protein shake (HALF scoop in 8oz almond milk) at 7am-9am, two Pure protein bars at 10am-12pm and 1pm-3pm, meal at 4pm (10 forks of protein and 10 forks of salad or vegetables), one Tajik yogurt at 6pm-8pm and another Premier protein shake (HALF scoop in 8oz almond milk) at 9pm-11pm. 3. Start walking outside daily, tracking calories with a goal of 300 calories per day, daily. Goal is to burn 2000 calories per week on active walking. Goal is to burn 2000 calories per week on exercise, which means either 300 calories daily, or 400 calories 5 days per week, or 500 calories 4 days per week, or 650 calories 3 days per week. 4. Alternatively purchase a stationary bike, elliptical or treadmill at home that can track calories. Let me know if you do so I can give you an exercise plan. 5. Send me weight measurements tomorrow and then weekly on Wednesdays (2) Sciatica: Code(s): M54.30 - Sciatica, unspecified side Telehealth Telehealth Location of provider rendering services: practice address Location of patient: address on file Patient Identification confirmed using: Name, : Yes Telehealth method: voice only Patient verbally consented to treatment: Yes Patient verbally consented to billing insurance company: Yes Patient informed of any privacy concerns related to visit: Yes Minutes spent on Phone/Video with Pt.: 46 Coding Level of Care Code Tele Est Pt Level 5 (53809) Diagnoses Morbid obesity E66.01 Sciatica M54.30 Time Spent (min) 46
[2023-05-22 12:16] VITALS: BMI 48.8
== END 2023-05-22 12:26 | disposition home or self-care (01) ==
LOC: HO.HBS 10:33
PROVIDERS: Visit Provider Surgery
DX: E66.01 Morbid (severe) obesity due to excess calories (principal); Z68.42 Body mass index [BMI] 45.0-49.9, adult
CPT/HCPCS: 99215

== ENCOUNTER → 2023-05-22 10:33 | Outpatient (BNVA) | payer OTHER, SELFPAY | PROVIDERS: Visit Provider Surgery ==

== ENCOUNTER 2023-06-04 12:40 | Outpatient (AMB) | payer OTHER, SELFPAY ==
--- NOTE | 2023-06-04 12:17 | A.OFFVIS_ITS ---
Intake VS Expanded 06/04/23 12:24 Height 5 ft 2 in Weight 273 lb BMI 49.9 Body Fat 118.2 Body Fat Percentage 43.3 Free Fat Mass 154.8 Visceral Mass 29 Water Mass 106.1 BMR 1,881 Intake Visit Reasons: TV Pre Op LSG 06/12/23 Allergies cat dander [CATS] Allergy (Severe, Verified 06/04/23 12:17) SOB SWELLING ITCHY pork derived (porcine) [PORK DERIVED (PORCINE)] Allergy (Severe, Verified 08/16 12:17) VOMITING, THROAT SWELLING Medication List - Last Reconciled 06/04/23 by Adarsh Frost MD ondansetron 4 mg PO Q12H pantoprazole 40 mg PO DAILY polyethylene glycol 3350 (Miralax) 17 grams PO DAILY sucralfate 10 mL PO BID thiamine HCl (vitamin B1) 50 mg PO DAILY HPI TV Pre Op LSG 06/12/23 HPI Details Start time: 12.12pm, End time: 12.32pm ?I spent 15 minutes speaking with the patient on the phone plus an additional 5 minutes reviewing and updating records for a total of 20 minutes HPI Comments History of Present Illness Details Overall weight loss: 26.2lbs, or 8.76% TBWL Is doing 2 Premier protein shakes (1/2 scoop in almond milk), 2 Zone Perfect protein bars and one meal (10 forks of protein and 10 forks of salad or vegetables), one Khmer yogurt Exercise: walking outside [facility] Medical History (Updated 06/04/23 @ 12:13 by Adarsh Frost MD) GERD (gastroesophageal reflux disease) Morbid obesity Elevated LFTs Diarrhea Hernia Sciatica Surgical History History of History of tonsillectomy Family History Mother No problems noted. Father Mental health disorder Substance use disorder Maternal Grandmother Hypertension Paternal Grandmother Diabetes Social History Housing: House Alcohol intake: current Alcohol intake frequency: holidays/special occasions only Alcohol type: wine Patient Tobacco Use Status: Never used Tobacco e-Cigarette/Vaping Use: Never Used Second Hand Smoke Exposure: No Substance Use Type: Marijuana service: No Current occupational status: employed Current occupational exposures/hazards: No Cognitive needs: No Hearing needs: No Vision needs: No Physical Exam Vital Signs: BMI result Body Mass Index 49.9 Assessment & Plan Assessment & Plan (1) Morbid obesity: Code(s): E66.01 - Morbid (severe) obesity due to excess calories Plan: 1. Plan for lap sleeve gastrectomy including upper GI endoscopy. All tests has been completed and reviewed and the patient is cleared for the surgery. ?If diaphragmatic or ventral hernias are present at time of surgery, these will be repaired laparoscopically as well. Risks and complications were discussed in detail including possible conversion to an open procedure, anastomotic leak, bleeding requiring transfusion, small bowel obstruction, , DVT and pulmonary embolism, cardiac, or pulmonary complications, as joint terminal attack controller complications such as anastomotic ulcer, insufficient weight loss and vitamin deficiencies. I emphasized the importance of close follow-up, adherence to instructions and good communication. So far she has proven to be an excellent communicator and very compliant with all our directions accomplishing a great weight loss. I believe that she is an excellent candidate and she is ready. 2. Preop prescriptions were provided and explained the purpose of each one. Need to be purchased preop. Start Pantoprazole now as you get it from the pharmacy, 1 pill per day. Sucralfate and Zofran are for after surgery as needed. 3. Bowel prep: please do 7 packets ?of Miralax mixing each one with a an 8oz glass of water, crystal light, gatorade zero, or propel ?on 06/10/23 and the same amount on 06/11/23. Continue the protein shakes during? the bowel prep. 4. Needs to purchase 1oz medicine cups . 5. Needs to purchase Children's liquid Tylenol for postop pain control. 6. Avoid aspirin, motrin, Advil, Aleve, Ibuprofen, Naproxyn. Tylenol is OK. 7. She needs to purchase the Celebrate 4:1 protein shakes from the hospital's gift shop. 8. Will do basic preop blood work-up any day between Sunday06/05/23 and Sunday06/08/23 fasting for 12 hours and is scheduled to see the Anesthesiologist prior to the day of surgery. 9. Importance of adherence to postop folllow-up and recommendations was underscored and she understands that. 10. Stop food and bars as of todcay 06/04/23 and continue with 4 Premier protein shakes (ONE scoop EACH in 8oz almond milk) at 7am-9am, 10am-12pm, 1pm-3pm, 4pm- 6pm AND one more Premier protein shake with TWO scoops in 8oz of almond milk at 7pm-9pm 11. No soups, broths or V8 12. The patient's?medical?history has been reviewed and they are considered low risk for post op DVT and therefore DVT prophylaxis is not considered necessary. Travel after surgery was reviewed. The patient has not disclosed any travel plans during the first 30 days after surgery and they have been advised that within the first 30 days after surgery any bus, plane, train or car travel over 2 hours in duration is contraindicated due to the possibility of developing blood clots from immobility. Any travel, needs to include periods of ambulation of 10 minutes in duration every 2 hours.? Patient was instructed to discuss any plans for travel during this period with their bariatric surgeon.? 13. Please take at the day of surgery the following medications: 14. Stop any control pills and don't use them for one month after surgery 15. Absolutely no smoking or vaping, or marijuana until the surgery and for at least the first 4 weeks. Only nicotine patches are allowed. 16. Send me weight measurements on and then on the day of surgery before you go to the hospital. 17. Avoid any steroids by mouth for any reason. Let me know if someone prescribes them to you Orders: Orders Prothrombin Time INR Today E66.01 - Morbid (severe) obesity due to excess calories Hemoglobin A1c Today E66.01 - Morbid (severe) obesity due to excess calories Partial Thromboplastin Time Today E66.01 - Morbid (severe) obesity due to excess calories Complete Blood Count Auto Diff Today E66.01 - Morbid (severe) obesity due to excess calories Insulin Today E66.01 - Morbid (severe) obesity due to excess calories Comprehensive Met. Panel Today E66.01 - Morbid (severe) obesity due to excess calories TSH reflex Free T4 Today E66.01 - Morbid (severe) obesity due to excess calories Type and Screen Today E66.01 - Morbid (severe) obesity due to excess calories Lipid Panel Today E66.01 - Morbid (severe) obesity due to excess calories C Reactive Protein Today E66.01 - Morbid (severe) obesity due to excess calories Medications: New sucralfate 10 mL PO BID 400 mL 2RF K21.9 - Gastro-esophageal reflux disease without esophagitis ondansetron Start time: 8.00am, End time: I spent 15 minutes speaking with the patient on the phone plus an additional 5 minutes reviewing and updating records for a total of 20 minutes 4 mg PO Q12H 20 tabs 0RF nausea and vomiting R11.0 - Nausea polyethylene glycol 3350 (Miralax) Mix each packet with 8oz of water, Crystal light, or Gatorade zero, or Propel and do 7 packets on 06/10/23 and another 7 packets on 06/11/23 17 grams PO DAILY 14 ea 0RF Z01.818 - Encounter for other preprocedural examination pantoprazole 40 mg PO DAILY 30 tabs 2RF K21.9 - Gastro-esophageal reflux disease without esophagitis Telehealth Telehealth Location of provider rendering services: practice address Location of patient: address on file Patient Identification confirmed using: Name, : Yes Telehealth method: voice only Patient verbally consented to treatment: Yes Patient verbally consented to billing insurance company: Yes Patient informed of any privacy concerns related to visit: Yes Minutes spent on Phone/Video with Pt.: 20 Coding Level of Care Code Tele Est Pt Level 3 (25955) Diagnoses Morbid obesity E66.01 Time Spent (min) 20
[2023-06-04 12:24] VITALS: BMI 49.9
== END 2023-06-04 13:11 | disposition home or self-care (01) ==
LOC: HO.HBS 12:40
PROVIDERS: Visit Provider Surgery
DX: E66.01 Morbid (severe) obesity due to excess calories (principal); Z68.42 Body mass index [BMI] 45.0-49.9, adult
CPT/HCPCS: 99024

== ENCOUNTER → 2023-06-04 12:40 | Outpatient (BNVA) | payer OTHER, SELFPAY | PROVIDERS: Visit Provider Surgery | DX: E66.01 Morbid (severe) obesity due to excess calories (principal); K21.9 Gastro-esophageal reflux disease without esophagitis; R11.0 Nausea; Z01.818 Encounter for other preprocedural examination ==

== ENCOUNTER 2023-06-12 09:28 | Inpatient (IN) | payer OTHER, SELFPAY ==
[2023-06-05 08:46] LABS: MANUAL DIFF FLAG NO
[2023-06-05 09:02] LABS: Basophils Absolute Auto 0.1 X10*3/uL (0.0-0.2); Basophils Percent Auto 0.9 % (0-2); Eosinophils Absolute Auto 0.2 X10*3/uL (0.0-0.4); Eosinophils Percent Auto 3.3 % (0-4); Hematocrit 41.4 % (37.0-47.0); Hemoglobin 14.3 g/dl (12.0-16.0); Imm Gran Abs Auto 0.03 X10*3/uL (0.00-0.03); Imm Gran Pct Auto 0.4 % (0.0-0.4); Lymphocytes Absolute Auto 1.8 X10*3/uL (1.2-4.9); Lymphocytes Percent Auto 25.5 % (20-40); Mean Corpuscular HGB Conc 34.5 g/dl (31.0-35.0); Mean Corpuscular Hemoglobin 29.6 pg (27.0-33.0); Mean Corpuscular Volume 85.7 fL (80.0-98.0); Mean Platelet Volume 9.5 fL (9.4-12.3); Monocytes Absolute Auto 0.5 X10*3/uL (0.1-1.2); Monocytes Percent Auto 6.7 % (2-11); Neutrophils Absolute Auto 4.4 x10*3/uL (2.0-8.3); Neutrophils Percent Auto 63.2 % (45-73); Platelet Count 333 X10*3/uL (160-400); Red Blood Count 4.83 X10*6/uL (4.20-5.50)
[2023-06-05 09:07] LABS: INTERNATIONAL NORM RATIO 1.1 (0.9-1.1)
[2023-06-05 09:09] LABS: Estimated Average Glucose 80 mg/dL; Hemoglobin A1C 93.0275 umol/L; Hemoglobin A1c % 4.4 % (<6.0)
[2023-06-05 09:10] LABS: Partial Thromboplastin Time 36.3 SEC (26.0-36.4)
[2023-06-05 09:36] LABS: Alanine Aminotransferase 36 U/L (0-31); Albumin Level 4.1 g/dL (3.5-5.0); Alkaline Phosphatase 72 U/L (39-117); Anion Gap 11 (12-20); Aspartate Amino Transferase 31 U/L (5-31); Bilirubin Total 0.6 mg/dL (0.0-1.0); Blood Urea Nitrogen 14 mg/dL (9-16); C Reactive Protein 1.46 mg/dL (< or = 0.50); Calcium 9.5 mg/dL (8.4-10.2); Carbon Dioxide 24 mmol/L (22-29); Chloride 109 mmol/L (96-108); Cholesterol 145 mg/dL (<200); Estimated Glomerular Filt Rate > 60; Glucose Random 99 mg/dL (60-115); HDL Cholesterol 28 mg/dL (>40); LDL Cholesterol Calculated 101 mg/dL (<100); Potassium 3.7 mmol/L (3.3-5.1); Sodium 140 mmol/L (135-145); Total Protein 7.4 g/dL (6.5-8.0); Triglycerides 83 mg/dL (<150)
[2023-06-05 09:43] LABS: Insulin 22 uU/mL (2-29); TSH reflex Free T4 0.91 uIU/mL (0.32-4.0)
[2023-06-06 11:33] VITALS: BMI 49.9
--- NOTE | 2023-06-09 14:23 | MHC.SHP ---
Pre-Procedural Eval Section A Date of Service: 06/09/23 The patient is an INPATIENT: Yes The History & Physical has been completed within 30 days and I have reviewed it.: Yes Section B Chief Complaint: Morbid (severe) obesity due to excess calories Relevant Family History (Specify if Yes): No Relevant Social History: None Present Medications: None Medical History: No relevant PMH History of Previous Operations: No relevant previous surgery Allergies: Allergies Allergy/AdvReac Type Severity Reaction Status Date / Time cat dander [CATS] Allergy Severe SOB Verified 06/04/23 12:17 SWELLING ITCHY pork derived (porcine) Allergy Severe VOMITING, Verified 06/04/23 12:17 [PORK DERIVED (PORCINE)] THROAT SWELLING Review of Systems Sugical H&P ROS: Negative: Constitution, Cardiovascular, Respiratory, Neurological, Psychiatric, Hem-Onc, Allergic/Immunologic, Gastrointestinal, Genitourinary, Musculoskeletal, Integumentary, Endocrine and Eyes/Ears/Nose/Throat Exam Surgical H&P Exam: Normal: HEENT, Normal: Heart, Normal: Lungs, Normal: Extremities, Normal: Abdomen, Normal: Skin and Normal: Neurological Plan Diagnosis/Plan: Unchanged I have reviewed the history and physical and performed a pertinent physical examination on my patient. No changes have occurred unless specified. Time Spent With Patient Time: Total time managing care of this patient today ____ minutes.
--- NOTE | 2023-06-11 09:45 | HO.ANESPROP2 ---
HPI - Anesthesia Eval Consult details Narrative: 33yo F for Gastrectomy Sleeve,EGD,poss diaphragmatic hernia,poss ventral hernia,poss open, PMFSH Active Problems Active Problems: All Active Problems (Updated 06/04/23 @ 12:13 by Adarsh Frost MD) GERD (gastroesophageal reflux disease) (Acute) Sciatica (Acute) Morbid obesity (Acute) Binge-eating disorder, in full remission, mild (Acute) Pre-op evaluation (Acute) Fatty liver (Acute) BMI 50.0-59.9, adult (Acute) Morbid (severe) obesity due to excess calories (Acute) Abdominal pain (Acute) Elevated LFTs (Acute) Diarrhea (Acute) Hernia (Acute) Past Medical History Medical History (Updated 06/04/23 @ 12:13 by Adarsh Frost MD) GERD (gastroesophageal reflux disease) Morbid obesity Elevated LFTs Diarrhea Hernia Sciatica Family History Family History Mother No problems noted. Father Mental health disorder Substance use disorder Maternal Grandmother Hypertension Paternal Grandmother Diabetes Surgical History Surgical History (Updated 06/12/23 @ 10:02 by Shanti Wells PA-C) History of History of tonsillectomy Social History Social History Household Members: Children Housing: House Are you a primary senior care provider to a significant other at home: No Do you presently have visiting nurse or other home services: No Alcohol intake: current Alcohol intake frequency: does not drink Alcohol type: wine Patient Tobacco Use Status: Never used Tobacco e-Cigarette/Vaping Use: Never Used Second Hand Smoke Exposure: No Substance Use Type: Marijuana service: No Current occupational status: employed Current occupational exposures/hazards: No Cognitive needs: No Hearing needs: No Vision needs: No Meds Allergies Allergy/AdvReac Type Severity Reaction Status Date / Time cat dander [CATS] Allergy Severe SOB Verified 06/04/23 12:17 SWELLING ITCHY pork derived (porcine) Allergy Severe VOMITING, Verified 06/04/23 12:17 [PORK DERIVED (PORCINE)] THROAT SWELLING Exam Exam Date and Time: June 11, 2023 0945 Height,Weight and Vital Signs: Height 5 ft 2 in Weight 123.831 kg Pertinent Lab Results Pertinent Lab Results: Laboratory Tests 06/05/23 06/05/23 08:40 08:44 WBC 7.0 RBC 4.83 Hgb 14.3 Hct 41.4 MCV 85.7 MCH 29.6 MCHC 34.5 RDW 13.0 Plt Count 333 MPV 9.5 Immature Gran % (Auto) 0.4 Neut % (Auto) 63.2 Lymph % (Auto) 25.5 [place] % (Auto) 6.7 Eos % (Auto) 3.3 Baso % (Auto) 0.9 Lymph # (Auto) 1.8 [place] # (Auto) 0.5 Eos # (Auto) 0.2 Baso # (Auto) 0.1 Abs Immat Gran (auto) 0.03 Absolute Neuts (auto) 4.4 Absolute Nucleated RBC 0.000 Nucleated RBC % (auto) 0.0 PT 13.0 INR 1.1 APTT 36.3 Sodium 140 Potassium 3.7 Chloride 109 H Carbon Dioxide 24 Anion Gap 11 L BUN 14 Creatinine 0.66 Estim Creat Clear Calc TNP Estimated GFR > 60 Random Glucose 99 Estimat Average Glucose 80 Hemoglobin A1c % 4.4 Insulin Level 22 Calcium 9.5 Total Bilirubin 0.6 AST 31 ALT 36 H Alkaline Phosphatase 72 C-Reactive Protein 1.46 H Total Protein 7.4 Albumin 4.1 Triglycerides 83 Cholesterol 145 LDL Cholesterol, Calc 101 H HDL Cholesterol 28 L TSH 0.91 Blood Type O Positive Antibody Screen NEGATIVE Narrative Narrative: EKG 03/2023 Vent. Rate : 082 BPM Atrial Rate : 082 BPM P-R Int : 156 ms QRS Dur : 092 ms QT Int : 370 ms P-R-T Axes : 042 001 046 degrees QTc Int : 432 ms Normal sinus rhythm Normal ECG No previous ECGs available Assessment and Plan Assessment Anesthesia Assessment: Chart Reviewed
[2023-06-12] VITALS (13 sets, daily range): BP systolic 120–150; BP diastolic 60–94; PULSE 69–98; RESP 16–21; TEMP 36–36.7; O2SAT 90–98
--- OUTSIDE RECORDS SUMMARY | 2023-06-12 09:36 | XMS_ITS | Continuity of Care Document ---
Author Name Unknown Organization [facility] Address [address] [place] [address]- Care Team Providers Care Consumer Sales Representative Name Role Phone Jessica Francisco MD Primary Care Physician [phone] [place]counter [facility] [place] Date(s): 06/07/22 - 07/23/[address] [address]- Attending Physician: Not on Staff, Attending MD Allergies, Adverse Reactions, Alerts Substance Reaction Severity Status Cats Active Immunizations Given and Recorded Vaccine Date Status Refusal Reason tetanus/diphtheria/pertussis, acel(Tdap) 03/17/22 Given tetanus/diphtheria/pertussis, acel(Tdap) 1 07/05/17 Given influenza virus vaccine, inactivated 2 07/05/17 [facility] 1Admin Note: VIS sheet given 2Admin Note: VIS sheet given Medications Liletta 52 mg intrauterine device 1 each = 52 mg, Once, 0 Refills, Maintenance, 05/17/22 8:02:00 EDT, Partial fill upon patient request if the prescription is for a schedule II opioid drug. Start Date: 05/17/22 Status: Ordered Problem List Condition Confirmation Course Effective Dates Status Health St atus Informant History of anxiety 1 Confirmed Active Migraines 2 Confirmed Active Morbid obesity with BMI of 50.0-59.9, adult Confirmed Active H/O Sinus tachycardia 3, 4 Confirmed 06/2017 Active Tubular adenoma of colon 5 Confirmed 02/04/19 Active 1After passing of father in 09/22/2016. States currently stable and has resolved 2States manages by self 3Patient states she completed Holter monitor test. States this issue resolved after of first child in 2018 4Evaluated by cardiology 05/2017, NSR, holter pending. Probably no need for furter evaluation of treatment in . 5Patient states she is due to follow up with GI this year, encouraged to call for follow up appt Social History Social History Type Response Smoking Status Never (less than 100 in lifetime) entered on: 10/24/21 Sex Patient Care team information Personnel Name: Jessica Francisco MD Address: Address: [address] [place] [address] [address] [place] [id number]
--- OUTSIDE RECORDS SUMMARY | 2023-06-12 09:36 | XMS_ITS | Continuity of Care Document ---
Author Name Unknown Organization [facility] Address [address] [place] [id number]- Care Team Providers Care Clinical Operations Leader Name Role Phone Jessica Francisco MD Primary Care Physician [place] [facility] [place] 03/21/22 - 04/20/[address] [address]- Allergies, Adverse Reactions, Alerts Substance Reaction Severity Status Cats Active Immunizations Given and Recorded Vaccine Date Status Refusal Reason tetanus/diphtheria/pertussis, acel(Tdap) 03/17/22 Given tetanus/diphtheria/pertussis, acel(Tdap) 1 07/05/17 Given influenza virus vaccine, inactivated 2 07/05/17 [facility] 1Admin Note: VIS sheet given 2Admin Note: VIS sheet given Medications aspirin 81 mg oral delayed release tablet See Instructions, 2 tablet By Mouth Daily at bedtime, # 60 tablet, Refills 8, Tot. Refills 8, Maintenance, 11/09/21 14:51:00 EST, Instructions Replace Required Details, Route to Pharmacy Electronically, [facility]/pharmacy #[id number], Partial fill upon patient re... Start Date: 11/09/21 Status: Ordered Multivitamins with Folic Acid 1 mg oral tablet 1 tablet, By Mouth, Daily, # 90 tablet, 3 Refills, Maintenance, 07/22/21 9:50:00 EDT, Tablet, [facility]/pharmacy #[id number], Partial fill upon patient request if the prescription is for a schedule II opioid drug., 1 tablet By Mouth Daily, 158, cm, 07/22/21 9:18:... Start Date: 07/22/21 Status: Ordered Unisom 25 mg oral tablet 1 tablet = 25 mg, By Mouth, Daily, # 30 tablet, 1 Refills, Maintenance, 12/07/21 14:38:00 EDT, [id number], Partial fill upon patient request if the prescription is for a schedule II opioid drug., 158, cm, 12/07/21 14:02:00 EDT, Height, 132.8,... Start Date: 12/07/21 Status: Ordered Problem List Condition Effective Dates Status Health Status Inform ant History of anxiety(Confirmed) 1 Active MD Care in Labor(Confirmed) Active Migraines(Confirmed) 2 Active Morbid obesity with BMI of 5 0.0-59.9, adult(Confirmed) Active Severe obesity(Confirmed) Active H/O Sinus tachycardia(Confirmed) 3, 4 06/2017 Active Tubular adenoma of colon(Confirmed) 5 02/04/19 Active 1After passing of father in 09/22/2016. States currently stable and has resolved 2States manages by self 3Patient states she completed Holter monitor test. States this issue resolved after of first child in 2017 4Evaluated by cardiology 05/2017, NSR, holter pending. Probably no need for furter evaluation of treatment in . 5Patient states she is due to follow up with GI this year, encouraged to call for follow up appt Social History Social History Type Response Smoking Status Never (less than 100 in lifetime) entered on: 10/24/21 Sex
--- OUTSIDE RECORDS SUMMARY | 2023-06-12 09:36 | XMS_ITS | Continuity of Care Document ---
Author Name Unknown Organization [facility] Address [address] [place] [id number]- Care Team Providers Care Storage Brine Worker Name Role Phone Jessica Francisco MD Primary Care Physician [phone] Encounter [facility] Date(s): 07/19/21 - 08/20/[address] [address]- Attending Physician: Not on Staff, Attending MD Allergies, Adverse Reactions, Alerts Substance Reaction Severity Status Cats Active Immunizations Given and Recorded Vaccine Date Status Refusal Reason influenza virus vaccine, inactivated 1 07/05/17 [facility] tetanus/diphtheria/pertussis, acel(Tdap) 2 07/05/17 Given 1Admin Note: VIS sheet given 2Admin Note: VIS sheet given Medications Multivitamins with Folic Acid 1 mg oral tablet 1 tablet, By Mouth, Daily, # 90 tablet, 3 Refills, Maintenance, 07/22/21 9:50:00 EDT, Tablet, [id number], Partial fill upon patient request if the prescription is for a schedule II opioid drug., 1 tablet By Mouth Daily, 158, cm, 07/22/21 9:18:... Start Date: 07/22/21 Status: Ordered Problem List Condition Effective Dates Status Health Status Inform ant MD Care in Labor(Confirmed) Active Morbid obesity with BMI of 5 0.0-59.9, adult(Confirmed) Active Sinus tachycardia(Confirmed) 1 06/2017 Active Tubular adenoma of colon(Confirmed) 02/04/19 Active 1Evaluated by cardiology 05/2017, NSR, holter pending. Probably no need for furter evaluation of treatment in . Social History Social History Type Response Smoking Status Never smoker entered on: 01/11/17 Sex
--- OUTSIDE RECORDS SUMMARY | 2023-06-12 09:36 | XMS_ITS | Continuity of Care Document ---
Author Name Unknown Organization [facility] Address [address] [place] [address]- Care Team Providers Care Electrical Installation Inspector Name Role Phone Jessica Francisco MD Primary Care Physician [phone] [place] [facility] [place] - 05/20/[address] [address]- Allergies, Adverse Reactions, Alerts Substance Reaction Severity Status Cats Active Immunizations Given and Recorded Vaccine Date Status Refusal Reason tetanus/diphtheria/pertussis, acel(Tdap) 03/17/22 Given tetanus/diphtheria/pertussis, acel(Tdap) 1 07/05/17 Given influenza virus vaccine, inactivated 2 07/05/17 Gi gemini 1Admin Note: VIS sheet given 2Admin Note: VIS sheet given Medications acetaminophen 325 mg oral tablet 650 mg, By Mouth, Every 4 hours, (1-3), may give 325mg per patient preference and re-dose with 325mg within 4 hours, if needed. Patient should only receive a total of 650mg of Acetaminophen every 4 hours., # 50 tablet, Refills 0, Tot. Refills 0, Charisse... Start Date: 05/10/22 Status: Ordered docusate sodium 100 mg oral capsule 100 mg, 1, capsule, By Mouth, 2 times a day, PRN, # 20 capsule, Refills 0, Tot. Refills 0, Maintenance, constipation, 05/10/22 5:03:00 EDT, Route to Pharmacy Electronically, [facility]/pharmacy #[id number], Partial fill upon patient request if the prescription is... Start Date: 05/10/22 Status: Ordered ibuprofen 800 mg oral tablet 800 mg, 1, tablet, By Mouth, Every 8 hours, (4-6), may give 400mg per patient preference and re-dose with 400mg within 8 hours, if needed. Patient should only receive a total of 800mg of Ibuprofen every 8 hours., # 90 tablet, Refills 0, Tot. Refills... Start Date: 05/10/22 Status: Ordered Liletta 52 mg intrauterine device 1 each = 52 mg, Once, 0 Refills, Maintenance, 05/17/22 8:02:00 EDT, Partial fill upon patient request if the prescription is for a schedule II opioid drug. Start Date: 05/17/22 Status: Ordered oxyCODONE 5 mg oral tablet 5 mg, 1, tablet, By Mouth, Every 3 hours, PRN, (7-10), # 10 tablet, Refills 0, Tot. Refills 0, Maintenance, Pain , Severe, 05/10/22 5:04:00 EDT, Route to Pharmacy Electronically, [facility]/pharmacy #[id number], Partial fill upon patient request if the prescriptio... Start Date: 05/10/22 Status: Ordered Multivitamins with Folic Acid 1 mg oral tablet 1 tablet, By Mouth, Daily, # 90 tablet, 3 Refills, Maintenance, 07/22/21 9:50:00 EDT, Tablet, [facility]/pharmacy #[id number], Partial fill upon patient request [...] 100 in lifetime) entered on: 10/24/21 Sex Care Team Personnel Name: Jessica Francisco MD S Address: [address] [place] [address] [address] [place] [address]
--- OUTSIDE RECORDS SUMMARY | 2023-06-12 09:36 | XMS_ITS | Continuity of Care Document ---
Author Name Unknown Organization [facility] Address [address] [place] [address]- Care Team Providers Care Pulp Refiner Operator Name Role Phone Jessica Francisco MD Primary Care Physician En[place] [facility] [place] Date(s): 01/20/22 - 02/19/[address] [address]- Allergies, Adverse Reactions, Alerts Substance Reaction Severity [...] Replace Required Details, Route to Pharmacy Electronically, [facility]/pharmacy #[id number], Partial fill upon patient re... Start Date: 11/09/21 Status: Ordered Paxlovid 150 mg-100 mg oral tablet See Instructions, Take as prescribed, # 30 tablet, 0 Refills, Maintenance, 02/19/22 12:53:00 EDT, [facility]/pharmacy #[id number], Partial fill upon patient request if the prescription is for a schedule II opioiddrug., Take as prescribed, 158, cm, 02/01/22 18:43:... Start Date: 02/19/22 Status: Ordered Multivitamins with Folic Acid 1 mg oral tablet 1 tablet, By Mouth, Daily, # 90 tablet, 3 Refills, Maintenance, 07/22/21 9:50:00 EDT, Tablet, [facility]/pharmacy #[id number], Partial fill upon patient request if the prescription is for a schedule II opioid drug., 1 tablet By Mouth Daily, 158, cm, 07/22/21 9:18:... Start Date: 07/22/21 Status: Ordered Unisom 25 mg oral tablet 1 tablet = 25 mg, By Mouth, Daily, # 30 tablet, 1 Refills, Maintenance, 12/07/21 14:38:00 EDT, [facility]/pharmacy #[id number], Partial fill upon patient request if [...]
--- OUTSIDE RECORDS SUMMARY | 2023-06-12 09:36 | XMS_ITS | Continuity of Care Document ---
Author Name Unknown Organization [facility] Address [address] [place] [address]- Care Team Providers Care Child Nutrition Assistant Name Role Phone Jessica Francisco MD Primary Care Physician [phone] Encounter [facility] [id number] Date(s): 05/05/22 - 06/10/[address] [address]- Attending Physician: Saima Guerrero MD Admitting Physician: Saima Guerrero MD Referring Physician: Jossie PAULINO, AUTO DESIGN CHECKER, Jeannette Garcia Allergies, Adverse Reactions, Alerts Substance Reaction Severity [...] 05/10/22 5:03:00 EDT, Route to Pharmacy Electronically, [facility]/pharmacy #[id number], Partial fill upon patient [...] 05/10/22 5:04:00 EDT, Route to Pharmacy Electronically, [facility]/pharmacy #[id number], Partial fill upon patient request if the prescriptio... Start Date: 05/10/22 Status: Ordered Multivitamins with Folic Acid 1 mg oral tablet 1 tablet, By Mouth, Daily, # 90 tablet, 3 Refills, Maintenance, 07/22/21 9:50:00 EDT, Tablet, [facility]/pharmacy #[id number], Partial fill upon patient [...] Care Team Personnel Name: Jessica Francisco MD Address: [address] [place] [address] [address] [place] [address]
--- OUTSIDE RECORDS SUMMARY | 2023-06-12 09:36 | XMS_ITS | Continuity of Care Document ---
Author Name Unknown Organization [facility] [employer] Address [address] [facility], [address] [place] [address]- Care Team Providers Care Hotel Lobby Concierge Name Role Phone Jessica Francisco MD Primary Care Physician [phone] [id number] [address] [facility] [place] [address]- [facility] Attending Physician: Ceasar Christy MD Referring Physician: Jessica Francisco MD Allergies, Adverse Reactions, Alerts Substance Reaction Severity Status Cats Active Immunizations Given and Recorded Vaccine Date Status Refusal Reason influenza virus vaccine, inactivated 1 07/05/17 Gi gemini tetanus/diphtheria/pertussis, acel(Tdap) 2 07/05/17 Given 1Admin Note: VIS sheet given 2Admin Note: VIS sheet given Medications Bentyl 10 mg oral capsule 1 capsule, By Mouth, 4 times a day, # 28 capsule, 0 Refills, Maintenance, 01/05/20 14:05:00 EDT, Capsule Start Date: 01/05/20 Stop Date: 01/12/20 Status: Ordered BuSpar 10 mg oral tablet 1, tablet, By Mouth, 3 times a day, # 270 tablet, Refills 0, Maintenance, 01/05/20 14:06:00 EDT Start Date: 01/05/20 Status: Ordered CeleBREX 100 mg oral capsule 1 capsule = 100 mg, By Mouth, 2 times a day, # 15 capsule, 0 Refills, Maintenance, 11/17/19 13:18:00 EST, Capsule, [id number], 158, cm, 11/17/19 12:37:00 EST, Height, 134.5, kg, 02/24/20 12:37:00 EST, Dry Weight Start Date: 11/17/19 Status: Ordered Compazine Tablet = 10 mg, By Mouth, 4 times a day, 0 Refills, Maintenance, 01/05/20 14:05:00 EDT, Tablet Start Date: 01/05/20 Status: Ordered Imodium Capsule 2 mg, By Mouth, Every 3 hours, PRN, Refills 0, Maintenance, Loose Stool, 01/05/20 14:06:00 EDT Start Date: 01/05/20 Status: Ordered Liletta 52 mg intrauteral device 1 each = 52 mg, Intrauterine, Once, Placed by Dr. Christy on 12/19/17, # 1 each, 0 Refills, Soft Stop, 12/06/17 15:29:52 EDT Start Date: 12/06/17 Status: Ordered Zofran 4 mg oral tablet 1 tablet = 4 mg, By Mouth, Every 8 hours, PRN Nausea & Vomiting, # 10 tablet, 0 Refills, Maintenance, 01/05/20 19:01:00 EDT, Tablet, [id number], 158, cm, 01/05/20 13:56:00 EDT, Height, 132.8, kg, 01/05/20 13:56:00 EDT, Dry Weight Start Date: 01/05/20 Status: Ordered Problem List Condition Effective Dates [...]
--- OUTSIDE RECORDS SUMMARY | 2023-06-12 09:36 | XMS_ITS | Continuity of Care Document ---
Author Name Unknown Organization [facility] Address [address] [place] [address]- Care Team Providers Care Hammer Adjuster Name Role Phone Maryam OJEDA, Jessica Wray Primary Care Physician [place] [facility] [place](s[place] 10/27/20 - 11/26/[address] [address] Allergies, Adverse Reactions, Alerts Substance Reaction Severity [...] cm, 11/17/19 12:37:00 EST, Height, 134.5, kg, 11/17/19 12:37:00 EST, Dry Weight Start Date: 11/17/19 [...] 0 Refills, Maintenance, 01/05/20 19:01:00 EDT, Tablet, [facility]/pharmacy #[id number], 158, cm, 01/05/20 13:56:00 EDT, Height, [...]
--- OUTSIDE RECORDS SUMMARY | 2023-06-12 09:36 | XMS_ITS | Continuity of Care Document ---
Author Name Unknown Organization [facility] Address [address] [place] [address]- Care Team Providers Care Transport Coordinator Name Role Phone Maryam OJEDA, Jessica Wray Primary Care Physician Encounter [facility] [id number] Date(s): 04/13/22 - 06/17/[address] [address]- Attending Physician: Not on Staff, Attending MD [...] 05/10/22 5:03:00 EDT, Route to Pharmacy Electronically, [facility]/pharmacy #[id number], Partial fill upon patient request if the [...] 05/10/22 5:04:00 EDT, Route to Pharmacy Electronically, [facility]/pharmacy #[id number], Partial fill upon patient request if the prescriptio... Start Date: 05/10/22 Status: Ordered Multivitamins with Folic Acid 1 mg oral tablet 1 tablet, By Mouth, Daily, # 90 tablet, 3 Refills, Maintenance, 07/22/21 9:50:00 EDT, Tablet, [facility]/pharmacy #[id number], Partial fill upon patient request if [...] Team Personnel Name: Jessica Francisco MD Address: [address] [place] [address] [address] [place] [address]
--- OUTSIDE RECORDS SUMMARY | 2023-06-12 09:36 | XMS_ITS | Continuity of Care Document ---
Author Name Unknown Organization [facility] Address [address] [place] [address]- Care Team Providers Care Metal Fabricating Shop Helper Name Role Phone Maryam OJEDA, Jessica Wray Primary Care Physician [place] [facility] [place](s[place] 09/22/21 - 10/22/[address] [address]- Allergies, Adverse Reactions, Alerts Substance Reaction Severity [...] Refills, Maintenance, 07/22/21 9:50:00 EDT, Tablet, [id number], Partial fill upon patient request if [...]
--- OUTSIDE RECORDS SUMMARY | 2023-06-12 09:36 | XMS_ITS | Continuity of Care Document ---
Author Name Unknown Organization [facility] Address [address] [place] [address]- Care Team Providers Care Anodiser Name Role Phone Jessica Francisco MD Primary Care Physician En[place] [facility] [place] Date(s): 09/19/21 - 11/02/[address] [address]- Attending Physician: Not on Staff, Attending MD [...]
--- OUTSIDE RECORDS SUMMARY | 2023-06-12 09:36 | XMS_ITS | Continuity of Care Document ---
Author Name Unknown Organization [facility] [employer] [employer] Address [address] [facility] [place] [address]- Care Team Providers Care Final Application Reviewer Name Role Phone Jessica Francisco MD Primary Care Physician [place] [facility] [place]s): 09/24/21 - 10/24/21 [facility] [employer] [facility] [address] [facility] [place] [address]- Allergies, Adverse Reactions, Alerts Substance Reaction Severity [...]
--- OUTSIDE RECORDS SUMMARY | 2023-06-12 09:36 | XMS_ITS | Continuity of Care Document ---
Author Name Unknown Organization [facility] Address [address] [place] [address]- Care Team Providers Care Verify Rep Name Role Phone Jessica Francisco MD Primary Care Physician [phone] En[place] [facility] [place] Date(s): 06/21/22 - 07/21/[address] [address]- Allergies, Adverse Reactions, Alerts Substance Reaction Severity [...] Personnel Name: Jessica Francisco MD Address: Address: [address] [place] [address] [address] Jessica Francisco [place], [place] [address]
--- OUTSIDE RECORDS SUMMARY | 2023-06-12 09:37 | XMS_ITS | Continuity of Care Document ---
Author Name Unknown Organization [facility] Address [address] [place] [address]- Care Team Providers Care Adjunct Political Science Instructor Name Role Phone Jessica Francisco MD Primary Care Physician [place] [facility] [place] 07/22[place]21 - 08/21/21 [facility] [address] [place] [address]- Allergies, Adverse Reactions, Alerts Substance Reaction Severity [...] Refills, Maintenance, 07/22/21 9:50:00 EDT, Tablet, [id number], Partial fill upon patient request if the [...]
--- OUTSIDE RECORDS SUMMARY | 2023-06-12 09:37 | XMS_ITS | Continuity of Care Document ---
Author Name Unknown Organization [facility] Address [address] [place] [address]- Care Team Providers Care Lead Neurodiagnostic Technologist Name Role Phone Jessica Francisco MD Primary Care Physician [place] [facility] [place] 04/03/22 - 05/03/[address] [address]- Allergies, Adverse Reactions, Alerts Substance Reaction Severity [...] Replace Required Details, Route to Pharmacy Electronically, [facility]/pharmacy #[id number], Partial fill upon patient re... Start Date: 11/09/21 Status: Ordered Multivitamins with Folic Acid 1 mg oral tablet 1 tablet, By Mouth, Daily, # 90 tablet, 3 Refills, Maintenance, 07/22/21 9:50:00 EDT, Tablet, [facility]/pharmacy #[id number], Partial fill upon patient request if the prescription is for a schedule II opioid drug., 1 tablet By Mouth Daily, 158, cm, 07/22/21 9:18:... Start Date: 07/22/21 Status: Ordered Unisom 25 mg oral tablet 1 tablet = 25 mg, By Mouth, Daily, # 30 tablet, 1 Refills, Maintenance, 12/07/21 14:38:00 EDT, [id number], Partial fill upon patient request [...]
--- OUTSIDE RECORDS SUMMARY | 2023-06-12 09:37 | XMS_ITS | Continuity of Care Document ---
Author Name Unknown Organization [facility] Address [address] [place] [address]- Care Team Providers Care Textile Machine Operator Name Role Phone Jessica Francisco MD Primary Care Physician [phone] Encounter [facility] [place] [id number] Date(s): 04/24/22 - 04/24/[address] [address] Discharge Disposition: A-D/C Home Attending Physician: Silvio Kumar MD Admitting Physician: Silvio Kumar MD Referring Physician: Silvio Kumar MD Allergies, Adverse Reactions, Alerts Substance Reaction [...] Replace Required Details, Route to Pharmacy Electronically, [facility]/pharmacy #[id number], Partial fill upon patient re... Start Date: 11/09/21 Status: Ordered Multivitamins with Folic Acid 1 mg oral tablet 1 tablet, By Mouth, Daily, # 90 tablet, 3 Refills, Maintenance, 07/22/21 9:50:00 EDT, Tablet, [facility]/pharmacy #[id number], Partial fill upon patient request if the prescription is for a schedule II opioid drug., 1 tablet By Mouth Daily, 158, cm, 07/22/21 9:18:... Start Date: 07/22/21 Status: Ordered Unisom 25 mg oral tablet 1 tablet = 25 mg, By Mouth, Daily, # 30 tablet, 1 Refills, Maintenance, 12/07/21 14:38:00 EDT, [facility]/pharmacy #[id number], Partial fill upon patient request if the [...] encouraged to call for follow up appt Vital Signs Most recent to oldest [Reference Range]: 1 Weight 150.8 kg (04/24/22 12:08 PM) Blood Pressure [90-138/55-84 mm Hg] 94/6 5mm Hg (04/24/22 12:24 PM) Temperature [96.8-100.4 DegF] 98.4 DegF (04/24/22 12:08 PM) Blood pressure sites Arm, left (04/24/22 12:24 PM) Temperature Route Oral (04/24/22 12:08 PM) Dry Weight 150.8 kg (04/24/22 12:08 PM) Weight Obtained Via Standing scale (04/24/22 12:08 PM) Dry Weight Obtained Via Standing scale (04/24/22 12:08 PM) Social History Social History Type Response Smoking Status Never (less than 100 in lifetime) entered on: 10/24/21 Sex
--- OUTSIDE RECORDS SUMMARY | 2023-06-12 09:37 | XMS_ITS | Continuity of Care Document ---
Author Name Unknown Organization [facility] [employer] Address [address] [facility] [place] [address]- Care Team Providers Care Property Maintenance Technician Name Role Phone Maryam OJEDA, Jessica Wray Primary Care Physician [phone] [place] [facility] [place](s): 07/25/21 - 08/24/21 [facility] [employer] [address] [facility] [place] [address]- Allergies, Adverse Reactions, Alerts Substance Reaction Severity [...]
--- OUTSIDE RECORDS SUMMARY | 2023-06-12 09:37 | XMS_ITS | Continuity of Care Document ---
Author Name Unknown Organization [facility] [employer] Address [address] [facility] [place] [address]- Care Team Providers Care Hadoop Consultant Name Role Phone Jessica Francisco MD Primary Care Physician [id number] Date[facility] 02[facility]12/20 - 03/13/20 [facility] [address] [facility] [place] [address]- [facility] Attending Physician: AdmDavid bazan Admitting Physician: AdmtrDavid Referring Physician: Admtr, David Allergies, Adverse Reactions, Alerts Substance Reaction Severity [...] 0 Refills, Maintenance, 11/17/19 13:18:00 EST, Capsule, [facility]/pharmacy #[id number], 158, cm, 11/17/19 12:37:00 EST, Height, [...] 0 Refills, Maintenance, 01/05/20 19:01:00 EDT, Tablet, [facility]/pharmacy #[id number], 158, cm, 01/05/20 13:56:00 EDT, Height, [...]
--- OUTSIDE RECORDS SUMMARY | 2023-06-12 09:37 | XMS_ITS | Continuity of Care Document ---
Author Name Unknown Organization [facility] [employer]imit[employer] Address [address] [facility] [place] [address]- Care Team Providers Care Stock Broker Supervisor Name Role Phone Jessica Francisco MD Primary Care Physician En[place] [facility] [place] Date(s): 09/24/21 - 10/24/21 [facility] [address] [facility] [place] [address]- Allergies, Adverse Reactions, Alerts Substance Reaction Severity [...]
--- OUTSIDE RECORDS SUMMARY | 2023-06-12 09:37 | XMS_ITS | Continuity of Care Document ---
Author Name Unknown Organization [facility] Address [address] [place] [address]- Care Team Providers Care Pediatric Immunologist Name Role Phone Jessica Francisco MD Primary Care Physician [place] [facility] [place] [facility] [place] Date(s[place] 04/14/22 - 05/20/[address] [address]- Attending Physician: Saima Guerrero MD Admitting Physician: Saima Guerrero MD Referring Physician: Jossie PAULINO, PARTS ASSEMBLER, Jeannette Garcia Allergies, Adverse Reactions, Alerts Substance [...] 05/10/22 5:03:00 EDT, Route to Pharmacy Electronically, [facility]/pharmacy #[id number], Partial fill upon patient request if the [...] 05/10/22 5:04:00 EDT, Route to Pharmacy Electronically, [facility]/pharmacy #[id number], Partial fill upon patient request if the prescriptio... Start Date: 05/10/22 Status: Ordered Multivitamins with Folic Acid 1 mg oral tablet 1 tablet, By Mouth, Daily, # 90 tablet, 3 Refills, Maintenance, 07/22/21 9:50:00 EDT, Tablet, [facility]/pharmacy #[id number], Partial fill upon patient request if [...] Team Personnel Name: Jessica Francisco MD Address: [address] [place] [address] [address] [place] [address]
--- OUTSIDE RECORDS SUMMARY | 2023-06-12 09:37 | XMS_ITS | Continuity of Care Document ---
Author Name Unknown Organization [facility] Address [address] [place] [address]- Care Team Providers Care Supervisor Public Message Service Name Role Phone Jessica Francisco MD Primary Care Physician [place] [facility] [place](s): 12/14/21 - 01/26/[address] [address]- Attending Physician: Not on Staff, Attending MD [...] Replace Required Details, Route to Pharmacy Electronically, [facility]/pharmacy #[id number], Partial fill upon patient re... Start Date: 11/09/21 Status: Ordered Multivitamins with Folic Acid 1 mg oral tablet 1 tablet, By Mouth, Daily, # 90 tablet, 3 Refills, Maintenance, 07/22/21 9:50:00 EDT, Tablet, [facility]/pharmacy #[id number], Partial fill upon patient request if the prescription is for a schedule II opioid drug., 1 tablet By Mouth Daily, 158, cm, 07/22/21 9:18:... Start Date: 07/22/21 Status: Ordered Unisom 25 mg oral tablet 1 tablet = 25 mg, By Mouth, Daily, # 30 tablet, 1 Refills, Maintenance, 12/07/21 14:38:00 EDT, [facility]/pharmacy #[id number], Partial fill upon patient request if the [...]
--- OUTSIDE RECORDS SUMMARY | 2023-06-12 09:37 | XMS_ITS | Continuity of Care Document ---
Author Name Unknown Organization [facility] Address [address] [place] [address]- Care Team Providers Care Service Center Supervisor Name Role Phone Jessica Francisco MD Primary Care Physician En[place] [facility] [place] Date(s): 01/06/21 - 02/05/[address] [address]- Attending Physician: David French Admitting Physician: David French Referring Physician: AdmtrDavid Allergies, Adverse Reactions, Alerts Substance Reaction Severity Status Cats Active Immunizations Given and Recorded Vaccine Date Status Refusal Reason influenza virus vaccine, inactivated 1 07/05/17 Gi gemini tetanus/diphtheria/pertussis, acel(Tdap) 2 07/05/17 Given 1Admin Note: VIS sheet given 2Admin Note: VIS sheet given Medications Multivitamins with Vitamin B Complex, Vitamin C, Minerals and L- Methylfolate oral capsule 1 capsule, By Mouth, Daily, # 30 capsule, 9 Refills, Maintenance, 01/06/21 13:32:00 EDT, Capsule, [id number], Partial fill upon patient request if the prescription is for a schedule II opioiddrug., 1 capsule By Mouth Daily, 158, cm, 01/06/21... Start Date: 01/06/21 Status: Ordered Problem List Condition Effective Dates [...]
--- OUTSIDE RECORDS SUMMARY | 2023-06-12 09:37 | XMS_ITS | Continuity of Care Document ---
Author Name Unknown Organization [facility] Address [address] [place] [address]- Care Team Providers Care Sprayer Operator Name Role Phone Jessica Francisco MD Primary Care Physician [place] [facility] [place] - 08/21/[address] [address]- Attending Physician: David French Admitting Physician: David [...]
--- OUTSIDE RECORDS SUMMARY | 2023-06-12 09:37 | XMS_ITS | Continuity of Care Document ---
Author Name Unknown Organization [facility] Address [address] [place] [address]- Care Team Providers Care Customs Examiner Name Role Phone Maryam OJEDA, Jessica Wray Primary Care Physician [phone] [place] [facility] [place] - 05/30/[address] [address]- Attending Physician: David French Admitting Physician: David French Referring Physician: David French Allergies, Adverse Reactions, Alerts Substance Reaction Severity [...] 100 in lifetime) entered on: 10/24/21 Sex Laboratory * Event Display: Non Lab Results Authored Date: Patient Care team information Care Team Personnel Name: Jessica Francisco MD Position: [facility] Outreach Member Role: PCP Address: Address: [address] [place] [address] [address] Jessica Francisco MD [place], [place] [address] Name: Layne Mares RN Position: [facility] OB RN Member Role: Primary Care Nurse Care Team Related Persons Name: NATHALIE AMEZQUITA Address: [address] [place] [address] Name: ZINA PEMBERTON Address: [address] [place] [address] Name: ZINA PEMBERTON Address: home [address] [place] [address] Name: INOCENCIA PEMBERTON Address: [address] Address: home [address] [place] [address]
--- OUTSIDE RECORDS SUMMARY | 2023-06-12 09:37 | XMS_ITS | Continuity of Care Document ---
Author Name Unknown Organization [facility] Address [address] [place] [address]- Care Team Providers Care Candle Molder Hand Name Role Phone Jessica Francisco MD Primary Care Physician En[place] [facility] [place] Date(s): 02/17/22 - 03/19/[address] [address]- Allergies, Adverse Reactions, Alerts Substance Reaction Severity [...] Replace Required Details, Route to Pharmacy Electronically, [facility]/pharmacy #[id number], Partial fill upon patient re... Start Date: 11/09/21 Status: Ordered Paxlovid 150 mg-100 mg oral tablet See Instructions, Take as prescribed, # 30 tablet, 0 Refills, Maintenance, 02/19/22 12:53:00 EDT, [facility]/pharmacy #[id number], Partial fill upon patient request [...]
--- OUTSIDE RECORDS SUMMARY | 2023-06-12 09:37 | XMS_ITS | Continuity of Care Document ---
Author Name Unknown Organization [facility] Address [address] [place] [address]- Care Team Providers Care Divemaster Name Role Phone Jessica Francisco MD Primary Care Physician [phone] [place] [facility] [place] 07/17/22 - 08/16/[address] [address]- Attending Physician: David French Admitting Physician: David [...] 100 in lifetime) entered on: 10/24/21 Sex Note * Event Display: Non Lab Results Authored Date: Patient Care team information Care Team Personnel Name: Jessica Francisco MD Position: [facility] Outreach Member Role: PCP Address: Address: [address] [place] [address] [address] Jessica Francisco MD [place], [place] [address] Name: Layne Mares RN Position: [facility] OB RN Member Role: Primary Care Nurse Care Team Related Persons Name: NATHALIE AMEZQUITA Address: home [address] [place] [address] Name: ZINA PEMBERTON Address: [address] [place] [address] Name: ZINA PEMBERTON Address: home [address] [place] [address] Name: INOCENCIA PEMBERTON Address: [address] Address: home [address] [place] [address]
--- OUTSIDE RECORDS SUMMARY | 2023-06-12 09:37 | XMS_ITS | Continuity of Care Document ---
Author Name Unknown Organization [facility] Address [address] [place] [address]- Care Team Providers Care Client Resource Specialist Name Role Phone Jessica Francisco MD Primary Care Physician En[place] [facility] [place] Date(s): 04/24/22 - 05/24/[address] [address]- Allergies, Adverse Reactions, Alerts Substance Reaction Severity [...] 05/10/22 5:03:00 EDT, Route to Pharmacy Electronically, [facility]/pharmacy #[id number], Partial fill upon patient request if the [...] 05/10/22 5:04:00 EDT, [place] [facility], [facility] [...] Personnel Name: Jessica Francisco MD S Address: [address] [place] [address] [address] [place] [address]
--- OUTSIDE RECORDS SUMMARY | 2023-06-12 09:37 | XMS_ITS | Continuity of Care Document ---
Author Name Unknown Organization [facility] Address [address] [place] [address]- Care Team Providers Care Supervisor Burling And Joining Name Role Phone Maryam OJEDA, Jessica Wray Primary Care Physician [place] [facility] [place] Date(s): 01/13/21 - 02/12/[address] [address]- Allergies, Adverse Reactions, Alerts Substance Reaction Severity [...]
--- OUTSIDE RECORDS SUMMARY | 2023-06-12 09:37 | XMS_ITS | Continuity of Care Document ---
Author Name Unknown Organization [facility] Address [address] [place] [address]- Care Team Providers Care Crm Solution Architect Name Role Phone Jessica Francisco MD Primary Care Physician [phone] [place] [facility] [place] Date(s): 01/03/22 - 02/02/[address] [address]- Allergies, Adverse Reactions, Alerts Substance Reaction Severity [...] 1 Refills, Maintenance, 12/07/21 14:38:00 EDT, [id number], Partial fill upon patient request if the [...]
--- OUTSIDE RECORDS SUMMARY | 2023-06-12 09:37 | XMS_ITS | Continuity of Care Document ---
Author Name Unknown Organization [facility] Address [address] [place] [address]- Care Team Providers Care Health Center Assistant Name Role Phone Jessica Francisco MD Primary Care Physician En[place] [facility] [place] Date(s): 02/21/22 - 03/23/[address] [address]- Allergies, Adverse Reactions, Alerts Substance Reaction Severity [...] Replace Required Details, Route to Pharmacy Electronically, [facility]/pharmacy #[id number], Partial fill upon patient re... Start Date: 11/09/21 Status: Ordered Paxlovid 150 mg-100 mg oral tablet See Instructions, Take as prescribed, # 30 tablet, 0 Refills, Maintenance, 02/19/22 12:53:00 EDT, [facility]/pharmacy #[id number], Partial fill upon [...] tablet, 1 Refills, Maintenance, 12/07/21 14:38:00 EDT, [facility]/pharmacy #[id number], Partial fill upon [...]
--- OUTSIDE RECORDS SUMMARY | 2023-06-12 09:37 | XMS_ITS | Continuity of Care Document ---
Author Name Unknown Organization [facility] Address [address] [place] [address]- Care Team Providers Care Rn Acute Name Role Phone Maryam OJEDA, Jessica Wray Primary Care Physician [id number] Date[facility] 04/13/22 - 06/10/[address] [address]- Attending Physician: Not on Staff, Attending MD [...] 05/10/22 5:03:00 EDT, Route to Pharmacy Electronically, [facility]/pharmacy #[id number], Partial fill upon patient request if the [...] 05/10/22 5:04:00 EDT, Route to Pharmacy Electronically, [facility]/pharmacy #[id number], Partial fill upon patient request if the prescriptio... Start Date: 05/10/22 Status: Ordered Multivitamins with Folic Acid 1 mg oral tablet 1 tablet, By Mouth, Daily, # 90 tablet, 3 Refills, Maintenance, 07/22/21 9:50:00 EDT, Tablet, [facility]/pharmacy #[id number], Partial fill upon patient request if [...] Team Personnel Name: Jessica Francisco MD Address: [address] [place] [address] [address] [place] [address]
--- OUTSIDE RECORDS SUMMARY | 2023-06-12 09:37 | XMS_ITS | Continuity of Care Document ---
Author Name Unknown Organization [facility] [employer] Address [address] [place] [address]- Care Team Providers Care Testing Consultant Name Role Phone Jessica Francisco MD Primary Care Physician En[place] [facility] [place] Date(s): 09/24/21 - 10/24/21 [facility] [address] [place] [address]- Allergies, Adverse Reactions, Alerts Substance Reaction Severity [...]
--- OUTSIDE RECORDS SUMMARY | 2023-06-12 09:38 | XMS_ITS | Continuity of Care Document ---
Author Name Unknown Organization [facility] Address [address] [place] [address]- Care Team Providers Care Editor Index Name Role Phone Jessica Francisco MD Primary Care Physician [phone] En[place] [facility] [place] Date(s): 02/24/22 - 03/26/[address] [address]- Allergies, Adverse Reactions, Alerts Substance Reaction Severity [...] Replace Required Details, Route to Pharmacy Electronically, [facility]/pharmacy #[id number], Partial fill upon patient re... Start Date: 11/09/21 Status: Ordered Paxlovid 150 mg-100 mg oral tablet See Instructions, Take as prescribed, # 30 tablet, 0 Refills, Maintenance, 02/19/22 12:53:00 EDT, [facility]/pharmacy #[id number], Partial fill upon patient request if [...] tablet, 1 Refills, Maintenance, 12/07/21 14:38:00 EDT, [facility]/pharmacy #[id number], Partial fill upon patient request if [...]
--- OUTSIDE RECORDS SUMMARY | 2023-06-12 09:38 | XMS_ITS | Continuity of Care Document ---
Author Name Unknown Organization [facility] Address [address] [place] [address]- Care Team Providers Care Marriage Counselor Name Role Phone Maryam OJEDA, Jessica Wray Primary Care Physician [place] [facility] [place] Date(s): 09/19/21 - 10/19/[address] [address]- Allergies, Adverse Reactions, Alerts Substance Reaction Severity [...]
--- OUTSIDE RECORDS SUMMARY | 2023-06-12 09:38 | XMS_ITS | Continuity of Care Document ---
Author Name Unknown Organization [facility] ter Address [address] [place] [address]- Care Team Providers Care Managing Editor Name Role Phone Jessica Francisco MD Primary Care Physician En[place] [facility] [place] Date(s): 04/06/22 - 06/08/[address] [address] Attending Physician: Briana Walker MD Referring Physician: Briana Walker MD Allergies, Adverse Reactions, Alerts Substance Reaction [...] 05/10/22 5:03:00 EDT, Route to Pharmacy Electronically, [facility]/pharmacy #[id number], Partial fill upon patient request if the [...] 05/10/22 5:04:00 EDT, Route to Pharmacy Electronically, [facility]/pharmacy #[id number], Partial fill upon patient request if the prescriptio... Start Date: 05/10/22 Status: Ordered Multivitamins with Folic Acid 1 mg oral tablet 1 tablet, By Mouth, Daily, # 90 tablet, 3 Refills, Maintenance, 07/22/21 9:50:00 EDT, Tablet, [facility]/pharmacy #[id number], Partial fill upon [...] Team Personnel Name: Jessica Francisco MD Address: [address] [place] [address] [address] Jessica [place] [address]
--- OUTSIDE RECORDS SUMMARY | 2023-06-12 09:38 | XMS_ITS | Continuity of Care Document ---
Author Name Unknown Organization [facility] Address [address] [place] [address]- Care Team Providers Care General Handling Supervisor Name Role Phone Maryam OJEDA, Jessica Wray Primary Care Physician En[place] [facility] [place] Date(s): 04/17/23 - 05/30/[address] [address]- Attending Physician: Not on Staff, Attending MD [...] on: 10/24/21 Sex Patient Care team information Care Team Personnel Name: Jessica Francisco MD Position: [facility] Outreach Member Role: PCP Address: Address: [address] [place] [address] [address] Jessica Francisco MD [place], [place] [address] Name: Layne Mares RN Position: [facility] OB RN Member Role: Primary Care Nurse Care Team Related Persons Name: NATHALIE AMEZQUITA Address: [address] [place] [address] Name: ZINA PEMBERTON Address: [address] [place] [address] Name: ZINA PEMBERTON Address: home [address] [place] [address] Name: INOCENCIA PEMBERTON Address: [address] Address: [address] [place] [address] [place]
--- OUTSIDE RECORDS SUMMARY | 2023-06-12 09:38 | XMS_ITS | Continuity of Care Document ---
Author Name Unknown Organization [facility] Address [address] [place] [address]- Care Team Providers Care Snow Maker Name Role Phone Jessica Francisco MD Primary Care Physician En[place] [facility] [place] Date(s): 11/29/21 - 12/29/[address] [address]- Allergies, Adverse Reactions, Alerts Substance Reaction Severity [...] Replace Required Details, Route to Pharmacy Electronically, [facility]/pharmacy #[id number], Partial fill upon patient re... Start Date: 11/09/21 Status: Ordered Multivitamins with Folic Acid 1 mg oral tablet 1 tablet, By Mouth, Daily, # 90 tablet, 3 Refills, Maintenance, 07/22/21 9:50:00 EDT, Tablet, [facility]/pharmacy #[id number], Partial fill upon patient request if the prescription is for a schedule II opioid drug., 1 tablet By Mouth Daily, 158, cm, 07/22/21 9:18:... Start Date: 07/22/21 Status: Ordered Unisom 25 mg oral tablet 1 tablet = 25 mg, By Mouth, Daily, # 30 tablet, 1 Refills, Maintenance, 12/07/21 14:38:00 EDT, [id number], Partial fill upon patient request if the [...]
--- OUTSIDE RECORDS SUMMARY | 2023-06-12 09:38 | XMS_ITS | Continuity of Care Document ---
Author Name Unknown Organization [facility] ter Address [address] [place] [address]- Care Team Providers Care Pharmacovigilance Specialist Name Role Phone Jessica Francisco MD Primary Care Physician [place] [facility] [place](s[place] 01/03/22 - 01/10/[address] [address]- Encounter Diagnosis Procedure and treatment not carried out for other reasons(Final) - Discharge Disposition: A-D/C Walkout Attending Physician: Silvio Kumar MD Admitting Physician: Silvio Kumar MD Allergies, Adverse Reactions, [...] Replace Required Details, Route to Pharmacy Electronically, [facility]/pharmacy #[id number], Partial fill upon patient re... Start Date: 11/09/21 Status: Ordered Multivitamins with Folic Acid 1 mg oral tablet 1 tablet, By Mouth, Daily, # 90 tablet, 3 Refills, Maintenance, 07/22/21 9:50:00 EDT, Tablet, [facility]/pharmacy #[id number], Partial fill upon patient request if the prescription is for a schedule II opioid drug., 1 tablet By Mouth Daily, 158, cm, 07/22/21 9:18:... Start Date: 07/22/21 Status: Ordered Unisom 25 mg oral tablet 1 tablet = 25 mg, By Mouth, Daily, # 30 tablet, 1 Refills, Maintenance, 12/07/21 14:38:00 EDT, [facility]/pharmacy #[id number], Partial fill upon patient request if the [...]
--- OUTSIDE RECORDS SUMMARY | 2023-06-12 09:38 | XMS_ITS | Continuity of Care Document ---
Author Name Unknown Organization [facility] Address [address] [place] [address]- Care Team Providers Care Second Rigger Name Role Phone Jessica Francisco MD Primary Care Physician [phone] Encounter [facility] [place] Date(s): 11/30/21 - 12/30/[address] [address]- Allergies, Adverse Reactions, Alerts Substance Reaction Severity [...] Replace Required Details, Route to Pharmacy Electronically, [facility]/pharmacy #[id number], Partial fill upon patient re... Start Date: 11/09/21 Status: Ordered Multivitamins with Folic Acid 1 mg oral tablet 1 tablet, By Mouth, Daily, # 90 tablet, 3 Refills, Maintenance, 07/22/21 9:50:00 EDT, Tablet, [facility]/pharmacy #[id number], Partial fill upon patient request if the prescription is for a schedule II opioid drug., 1 tablet By Mouth Daily, 158, cm, 07/22/21 9:18:... Start Date: 07/22/21 Status: Ordered Unisom 25 mg oral tablet 1 tablet = 25 mg, By Mouth, Daily, # 30 tablet, 1 Refills, Maintenance, 12/07/21 14:38:00 EDT, [id number], Partial fill upon patient request if the [...]
--- OUTSIDE RECORDS SUMMARY | 2023-06-12 09:38 | XMS_ITS | Continuity of Care Document ---
Author Name Unknown Organization [facility] Address [address] [place] [address]- Care Team Providers Care Medical Technologist Name Role Phone Jessica Francisco MD Primary Care Physician [phone] En[place] [facility] [place] Date(s): 05/08/22 - 07/09/[address] [address]- Attending Physician: Not on Staff, Attending MD [...] 05/10/22 5:03:00 EDT, Route to Pharmacy Electronically, [facility]/pharmacy #[id number], Partial fill upon patient request if the [...] 05/10/22 5:04:00 EDT, Route to Pharmacy Electronically, [facility]/pharmacy #[id number], Partial fill upon patient request if the prescriptio... Start Date: 05/10/22 Status: Ordered Multivitamins with Folic Acid 1 mg oral tablet 1 tablet, By Mouth, Daily, # 90 tablet, 3 Refills, Maintenance, 07/22/21 9:50:00 EDT, Tablet, [facility]/pharmacy #[id number], Partial fill upon patient request if the prescription is for a schedule II opioid drug., 1 tablet By Mouth Daily, 158, cm, 07/22/21 9:18:... Start Date: 07/22/21 Status: Ordered Problem List Condition Confirmation Course Effective Dates Status Health St atus Informant History of anxiety 1 Confirmed Active MD Care in Labor Confirmed Active Migraines 2 Confirmed Active Morbid obesity with BMI of 50.0-59.9, adult Confirmed Active Severe obesity Confirmed Active H/O Sinus tachycardia 3, 4 [...] Personnel Name: Jessica Francisco MD Address: Address: [address] [place] [address] [address] [place] [address]
--- OUTSIDE RECORDS SUMMARY | 2023-06-12 09:38 | XMS_ITS | Continuity of Care Document ---
Author Name Unknown Organization [facility] Address [address] [place] [address]- Care Team Providers Care Vice President Marketing & Development Name Role Phone Maryam OJEDA, Jessica Wray Primary Care Physician [place] [facility] [place] Date(s): 04/04/23 - 05/04/[address] [address]- Allergies, Adverse Reactions, Alerts Substance Reaction Severity [...] Team Personnel Name: Jessica Francisco MD Position: [facility] Outreach Member Role: PCP Address: Address: [address] Jessica Francisco MD [place], [place] [address] Name: Layne Mares RN Position: [facility] OB RN Member Role: Primary Care Nurse Care Team Related Persons Name: AMEZQUITANATHALIE CURTIS Address: [address] [place] [address] Name: ZINA PEMBERTON Address: [address] [place] [address] Name: ZINA PEMBERTON Address: home [address] [place] [address] Name: INOCENCIA PEMBERTON Address: [address] Address: [address] [place] [address]
--- OUTSIDE RECORDS SUMMARY | 2023-06-12 09:38 | XMS_ITS | Continuity of Care Document ---
Author Name Unknown Organization [facility] Address [address] [place] [address]- Care Team Providers Care Ticker Maintainer Name Role Phone Jessica Francisco MD Primary Care Physician [phone] En[place] [facility] [place] Date(s): 05/08/22 - 05/10/[address] [address] Discharge Disposition: A-D/C Home Attending Physician: Conchita Hackett MD Admitting Physician: Conchita Hackett MD Referring Physician: Conchita Hackett MD Allergies, Adverse Reactions, Alerts Substance Reaction [...] 0, Charisse... Start Date: 05/10/22 Status: Ordered Acetaminophen Tablet 650 mg, Tablet, By Mouth, (1-3), may give 325mg per patient preference and re- dose with 325mg within 4 hours, if needed. Patient should only receive a total of 650mg of Acetaminophen every 4 hours., 05/10/22 4:00:00 EDT Start Date: 05/10/22 Stop Date: 05/10/22 Status: Completed docusate sodium 100 mg oral capsule 100 mg, 1, capsule, By Mouth, 2 times a day, PRN, # 20 capsule, Refills 0, Tot. Refills 0, Maintenance, constipation, 05/10/22 5:03:00 EDT, Route to Pharmacy Electronically, [facility]/pharmacy #[id number], Partial fill upon patient request [...] Tot. Refills... Start Date: 05/10/22 Status: Ordered Ibuprofen Tablet 800 mg, Tablet, By Mouth, (4-6), may give 400mg per patient preference and re- dose with 400mg within 8 hours, if needed. Patient should only receive a total of 800mg of Ibuprofen every 8 hours., 05/10/22 8:00:00 EDT Start Date: 05/10/22 Stop Date: 05/10/22 Status: Completed oxyCODONE 5 mg oral tablet 5 mg, 1, tablet, By Mouth, Every 3 hours, PRN, (7-10), # 10 tablet, Refills 0, Tot. Refills 0, Maintenance, Pain , Severe, 05/10/22 5:04:00 EDT, Route to Pharmacy Electronically, [facility]/pharmacy #[id number], Partial fill upon patient request if the prescriptio... Start Date: 05/10/22 Status: Ordered OxyCODONE IR Tablet 5 mg, Tablet, By Mouth, Every 3 hours, PRN for Pain , Severe, (7-10), Routine, 05/09/22 4:52:00 EDT Start Date: 05/09/22 Stop Date: 05/10/22 Status: Discontinued Multivitamins with Folic Acid 1 mg oral tablet 1 tablet, By Mouth, Daily, # 90 tablet, 3 Refills, Maintenance, 07/22/21 9:50:00 EDT, Tablet, [facility]/pharmacy #[id number], Partial fill upon patient request [...] encouraged to call for follow up appt Procedures Procedure Date Related Diagnosis Body Site Status delivery only; 05/08/22 C ompleted Vital Signs Most recent to oldest [Reference Range]: 1 2 3 Height 158 cm (05/10/22 12:00 AM) 158 cm (05/09/22 6:23 AM) 158 cm (05/08/22 3:35 PM) Weight 150.1 kg (05/08/22 1:58 AM) 150.1 kg (05/07/22 11:39 PM) Oxygen Saturation [94-100 %] 99 % (05/10/22 8:00 AM) 100 % (05/10/22 12:00 AM) 98 % (05/09/22 4:00 PM) Pulse Rate [55-90 bpm] 89 bpm (05/10/22 8:00 AM) 70 bpm (05/10/22 12:00 AM) 115 bpm *H* (05/09/22 4:00 PM) Body Mass Index [18.5-24.99] 60.13 *>HHI* (05/08/22 1:58 AM) Blood Pressure [90-138/55-84 mm Hg] 102/80mm Hg (05/10/22 8:00 AM) 100/70mm Hg (05/10/22 12:00 AM) 136/78mm Hg (05/09/22 4:00 PM) Respiratory Rate [16-30 br/min] 18 br/min (05/10/22 11:18 AM) 18 br/min (05/10/22 11:18 AM) 18 br/min (05/10/22 11:18 AM) Temperature [96.8-100.4 DegF] 98.7 DegF (05/10/22 8:00 AM) 98.3 DegF (05/10/22 12:00 AM) 98.0 DegF (05/09/22 4:00 PM) Mode of Delivery (Oxygen) Room air (05/10/22 8:00 AM) Room air (05/10/22 12:00 AM) Room air (05/09/22 4:00 PM) Blood pressure sites Arm, left (05/10/22 8:00 AM) Arm, right (05/10/22 12:00 AM) Arm, left (05/09/22 4:00 PM) Temperature Route Oral (05/10/22 8:00 AM) Oral (05/10/22 12:00 AM) Oral (05/09/22 4:00 PM) Dry Weight 150.3 kg (05/08/22 1:58 AM) 150.1 kg (05/07/22 11:39 PM) Weight Obtained Via Patient/family stated (05/08/22 1:58 AM) Standing scale (05/07/22 11:39 PM) Dry Weight Obtained Via Patient/family stated (05/08/22 1:58 AM) Social History Social History Type Response Smoking Status Never (less than 100 in lifetime) entered on: 10/24/21 Sex
--- NOTE | 2023-06-12 09:51 | PM.OP ---
Brief Operative Note Date of Service: 06/12/23 Pre-op diagnosis: Morbid obesity with comorbidities (see below) Post-op diagnosis: same Procedure: INITIAL PATIENT BMI ON PRESENTATION AT OUR OFFICE: 54.8 kg/m2 LAST BMI BEFORE SURGERY: 50.2 kg/m2 COMORBIDITIES: liver steatosis, umbilical hernia, sciatica, liver fibrosis ?The patient presented to the Weight Management Program with significant obesity that was negatively impacting the patient's comorbidities as listed above.? The program is a phased program with a special focus on preoperative medical weight management to promote substantial weight loss and prepare the patients for the second phase of the program: bariatric surgery. The patient participated in an intensive weekly lifestyle ?intervention and exercise program during which the patient ?has lost between the initial office visit and the last preoperative visit 26.2lbs, or 8.76% of initial actual body weight. It was deemed appropriate for the patient to now have bariatric surgery. In light of the current Covid-19 pandemic and the well documented strong association of obesity and increased risk of worse outcomes if infected with Covid-19 (REFERENCES:https://pubmed.ncbi.nlm.nih.gov/11269515/,?https://pubmed.ncbi.nlm.nih.gov/52712886/), any delay in undergoing bariatric surgery may lead to the patient's worsening health condition and increased?risk of more severe Covid-19 disease if infected. In addition a recent?study from [facility] published in [facility] Surgery on 09/19/2021 ([email or web address]) found that, among patients with obesity, substantial weight loss achieved with surgery was associated with improved outcomes of COVID-19 infection. The findings suggest that obesity can be a modifiable risk factor for the severity of COVID-19 infection. In addition, the patient met the BMI-criteria for bariatric surgery based on the BMI on initial presentation. The patient should not be penalized for achieving such weight loss because ?it is not sustainable long-term without surgical intervention and it was achieved in preparation for bariatric surgery ?under my direction and based on my published research ([email or web address]).[email or web address] and?[email or web address].[email or web address]/article/[email or web address]/pdf) ?that a 10% preoperative weight loss improves long-term weight loss after surgery and reduces perioperative complications.? Insurance carriers such as [facility] have endorsed my recommendations ?and have included in their policies criteria to include a 10% preoperative weight loss requirement. PROCEDURE: Esophago-gastroscopy, laparoscopic sleeve gastrectomy and laparoscopic gastropexy INDICATIONS: This is a 33 year-old female who was electively scheduled for laparoscopic, possibly open sleeve gastrectomy. The risks and complications of the procedure were discussed with the patient in advance, particularly the possibility of ; pulmonary embolism; staple line leak; bleeding; GERD; cardiac, pulmonary, or renal complications; as well as long-term problems such as insufficient weight loss, vitamin deficiency, strictures, or ulcers. The patient understood all the risks, and was in agreement to proceed with surgery. DESCRIPTION OF PROCEDURE: After informed consent was obtained from the patient, the patient was given preoperative antibiotics, and was transferred to the operating room. After successful induction of general anesthesia, pneumatic compression devices were placed on both lower extremities. An upper endoscopy was performed next. The oropharynx and esophagus appeared to be within normal limits. There was no diaphragmatic hernia present consistent with the findings of the preoperative upper GI. The stomach was entered. Then after all fluid and air were suctioned and the stomach was fully decompressed, the scope was withdrawn and secured in the mid esophagus. The patient was then prepped and draped in the usual sterile manner, and abdominal access was established at the right upper quadrant with the Kamla technique. A 12 mm blunt port was inserted, and the abdomen was insufflated with CO2 to a pressure of 15 mmHg. Under direct visualization, additional ports were placed, specifically two 5 mm Versi-step ports to the left upper quadrant, and a 5 mm Versi-Step port to the right upper quadrant. 1% lidocaine plain was used to infiltrate all port sites as well as all fascia defects. Following that, the patient was placed in a steep reverse Trendelenburg position. An additional 5 mm port was placed to the right flank for the Mediflex retractor that was used to retract the left lobe of the liver. The gastro-esophageal fat pad was opened with the ultrasonic device (Thunderbeat, Olympus) and the anterior esophagus and hiatus were exposed. The angle of His was opened with the ultrasonic device the fundus of the stomach from any diaphragmatic and splenic attachments. I then opened the gastrocolic ligament between the transverse colon and the greater curvature of the stomach with the ultrasonic device to enter the lesser sac and facilitate the ligation of the short gastric vessels. I started at a mid-point along the greater curvature and using the Thunderbeat, all short gastric vessels were divided all the way to the angle of His until the left timi was completely dissected at its entirety. I then divided the gastro-colic ligament distally to a distance of about 3-4 cm proximal to the pylorus. The stomach was then divided transversely with two Endo QUYEN-45 purple, and four QUYEN-60 articulating purple loads using the [employer] stapler and loads. Every effort was made that the gastric sleeve had a tubular shape and an even caliber throughout. Once the sleeve resection was completed, the staple line of the gastric sleeve was reinforced with Hemoclips. The resected stomach was retrieved without difficulty from the Kamla port. A gastropexy was then performed in order to prevent postoperative GERD and partial gastric volvulus. Several interrupted 2.0 Surgidac sutures were placed between the sleeve's staple line and the previously divided greater omentum and gastro-colic ligament using the Endo-Stitch device. ?An upper endoscopy was performed. There was no narrowing at the GE junction. The scope was easily advanced all the way to the pylorus which was clearly visualized. There was no narrowing anywhere and the sleeve's caliber was even throughout. The sleeve's staple line was inspected and there was no evidence of ischemia, bleeding or dehiscence. At that point the gastroscope was withdrawn from the patient?s mouth while we were decompressing the bowel and the stomach from any remaining air. I looked into the lesser sac to see how the sleeve was situating and it was situating well. There was no bleeding from the staple line, spleen, or short gastric vessels. The Mediflex retractor was removed, and the undersurface of the liver was inspected and there was no bleeding. The patient was placed in supine position. I closed the fascial defect of the 12 mm port site with a figure of eight #1 Polysorb suture. Then 30cc Ropivacaine plain with 10 mg of Dexamethasone were used to infiltrate the fascial closure as well as all skin incisions. A total of 7ml Zynrelef was applied in the Kamla wound. At this point, the abdomen was deflated, all ports were removed under direct vision, and no bleeding was noted from any of the port sites. The skin incisions were irrigated with saline and were closed with 4-0 absorbable monofilament sutures. Steri-Strips and OpSites were used to cover all incisions. The patient was extubated and was transferred in stable condition to the recovery room for further care. I was present and performed all solorio parts of the procedure. Ms. Wells was the first crusher. There were no residents to assist with this case. Marko Frost MD, PhD, FACS Surgeon: Adarsh Frost MD Anesthesia: GETA, local and other (TAP block and 7ml Zynrelef) Was an Ground Transportation Operator used for this Procedure?: No Ground Transportation Operator: Shanti Wells Estimated blood loss (mL): 10 IV fluids (mL): 2,100 Urine output (mL): 0 (No Golden to record output) Pathology: other (Stomach) Condition: stable Disposition: PACU
--- NOTE | 2023-06-12 09:54 | P.PNGS_ITS ---
Subjective Subjective Date of Service: 06/13/23 Interval history: Feels well. Mild incisional pain. She is tolerating phase 1 bariatric diet Physical Exam 2 Vital Signs: Vital Signs: BMI result Body Mass Index 49.9 GI: Inspection: Yes normal to inspection, Yes incision (clean, dry and intact) and Yes obesity Palpation (GI): Soft to palpation Extrem: Right lower extremity: normal to inspection (no calf tenderness) L eft lower extremity: normal to inspection (no calf tenderness) Objective Data Active Medications Lactated Ringer's (Lr) 1,000 mls @ 100 mls/hr IVCONT .Q10H ARIEL Cefazolin Sodium/Dextrose (Ancef) 2 gm in 50 mls @ 100 mls/hr IV PREOP ONE Stop: 06/12/23 09:57 Lactated Ringer's (Lr) 1,000 mls @ 999 mls/hr IV .Q1H1M ARIEL Stop: 06/12/23 11:30 Labs 06/13/23 05:12 06/13/23 05:12 Procedures Date of Service Date of Service: 06/13/23 Progress Note: A&P Assessment and plan (1) Morbid obesity: Status: Acute Assessment and Plan: s/p laparoscopic sleeve gastrectomy and gastropexy Doing well Will check am labs and if OK the patient will be discharged home (2) GERD (gastroesophageal reflux disease): Status: Acute (3) Sciatica: Status: Acute (4) Fatty liver: Status: Acute (5) Hernia: Status: Acute (6) S/P laparoscopic sleeve gastrectomy: Status: Acute Time Spent With Patient Time: Total time managing care of this patient today ____ minutes. Quality Stroke Does the patient have a stroke diagnosis?: No VTE Prior VTE?: No VTE Risk Level:: Surgical - moderate VTE Device Contraindication: N/A - Device Ordered VTE Drug Contraindication: Treatment Not Indicated
--- NOTE | 2023-06-12 10:00 | P.DS_ITS ---
DS: Providers Provider Date of Service: 06/13/23 Date of admission: 06/12/23 09:28 Primary care physician: LUDA Brown DS: Diagnosis Discharge Diagnosis (1) Morbid obesity: Status: Acute (2) GERD (gastroesophageal reflux disease): Status: Acute (3) Sciatica: Status: Acute (4) Fatty liver: Status: Acute (5) Hernia: Status: Acute DS: Summary Hospital Course Hospital Course: ADMITTING DIAGNOSIS: morbid obesity, GERD DISCHARGE DIAGNOSIS: same, s/p laparoscopic sleeve gastrectomy PAST SURGICAL HISTORY: section PROCEDURE: upper endoscopy, laparoscopic sleeve gastrectomy DISCHARGE SUMMARY: History of Present Illness: The patient is a 33 year-old woman with a BMI of 54.9 kg/m2 and associated co- morbidities as described above. The patient had extensive work-up, lost 40 lbs preoperatively and was electively scheduled for laparoscopic, possible open sleeve gastrectomy and gastropexy. Risks and complications of the surgery were discussed with the patient in advance, particularly the possibility of , pulmonary embolism, anastomotic leak, bleeding, bowel injury, GERD, cardiac, renal or pulmonary complications. The patient understood all the risks and was in agreement with the surgical plan. Hospital Course: The patient underwent an uneventful laparoscopic sleeve gastrectomy with gastropexy on the day of admission. Postoperatively, the patient was transferred to the surgical floor. The patient received IV Acetaminophen and IV dilaudid for pain control. Patient was started on bariatric phase 1 diet POD #0. On postoperative day one, the patient was feeling well without nausea, vomiting, fevers, or tachycardia. The patient had some mild incisional pain and the abdomen was soft. On the morning of postoperative day one, the patient was continued on 1 ounce of water or ice every half hour. During the day, the patient did fairly well, having some incisional pain, but able to ambulate adequately and to tolerate liquids well. Since the patient is doing well, we decided that the patient was ready to be discharged. The patient was given instructions to follow-up with me next week and to call my office for any fever over 101, persistent abdominal pain, nausea, vomiting, GERD, symptoms of DVT such as calf tenderness, or leg swelling, or pulmonary embolism such as chest pain or shortness of breath. The patient was also instructed to drink 40-60 ounces of liquids per day using the 1-ounce cups. The patient had been given prescriptions for Tylenol for pain, Zofran prn for nausea, and pantoprazole and carafate previously. The patient was encouraged to ambulate and use the incentive spirometer. The patient was allowed to shower, but no baths, and encouraged to stay active at home. All of these instructions were given to the patient personally. All questions were answered and the patient understood all instructions, the instructions were also given to the patient in print. Time Spent with Patient Time attestation: Total time managing care of this patient today ____ minutes. Discharge coordination time: Less than 30 minutes Quality: Safe Use of Opioids Does Pt have an Active Cancer Diagnosis on the Problem List?: No Quality: Stroke Does the patient have a stroke diagnosis?: No Physical Exam Vital Signs: Vital Signs: BMI result Body Mass Index 49.9 Discharge Plan Discharge Anticipated Discharge Date/Time: 06/13/23 10:01 Patient Disposition: Home, Self-Care Discharge Diagnosis: s/p sleeve gastrectomy Referrals: Magda Olmstead FNP [Primary Care Provider] - 1 Week Discharge Medications: Continued pantoprazole 40 mg tablet,delayed release (DR/EC) 40 mg PO DAILY Qty: 30 2RF sucralfate 100 mg/mL suspension 10 ml PO BID Qty: 400 2RF ondansetron 4 mg tablet,disintegrating 4 mg PO Q12H Qty: 20 0RF Rx Instructions: Start time: 8.00am, End time: I spent 15 minutes speaking with the patient on the phone plus an additional 5 minutes reviewing and updating records for a total of 20 minutes Discontinued thiamine HCl (vitamin B1) 50 mg tablet 50 mg PO DAILY Qty: 30 5RF polyethylene glycol 3350 [Miralax] 17 gram powder in packet 17 g PO DAILY Qty: 14 0RF Rx Instructions: Mix each packet with 8oz of water, Crystal light, or Gatorade zero, or Propel and do 7 packets on 06/10/23 and another 7 packets on 06/11/23 Discharge Orders: Discharge Order (Routine); Ordered 06/13/23 Ordered By: Adarsh Frost Activity on Discharge: No heavy lifting Stand Alone Forms: Patient Portal Discharge page, Work/School Release Care Plan Goals: weight loss Health Concerns: morbid obesity Plan of Treatment: No tub baths, sex or returning to work until discussed at first post op appointment. No exercise, alcohol, tobacco or illegal drug use. Continue to use incentive spirometer hourly while awake. Walk in home for 5- 10 minutes every 2 hours during the first week. Continue phase 1 diet today and start phase 2 diet tomorrow morning. Follow all instructions in the bariatric handbook and call with any questions. 1. Please call your doctor or come back to the emergency room should any new symptoms arise. 2. You will receive a courtesy call from [facility] 24-48 hours after discharge. 3. Activity: abstain from alcohol, practice limited stair climbing, no bending, no driving, no exercise, no illicit substances, no lifting, no sex, no tub bath, no work. 4. Diet: continue as discussed with bariatric team.. 5. Dressing Change/Wound Care: Do not change or remove surgical dressings unless they are wet or soiled. 6. Call your doctor if: - Your temperature exceeds 101.5 F - You experience excessive pain or swelling - You have an unexpected reaction to medication - You have excessive bleeding - You experience continued vomiting/nausea - Your incision begins to separate - Your incision shows signs of infection such as increased redness, swelling, excessive pain, heat, or drainage (light blood or clear fluid is normal) 7. General instructions: No lifting greater than 5 lbs for 1 week and not more than 20lbs the next 3?weeks. No driving until seen at the office in 5-7 days after surgery. If you do not move your bowels in the next 2 days, please tell?Dr. Frost. Please walk around your home every hour or two to prevent blood clots from forming in your legs. You do not need to wake from sleeping to walk. Please sleep in a bed or couch to prevent kinking at the hips and knees. Paolo agosto take your incentive spirometer (your lung family day carer) home with you and use it for the next few days to prevent pneumonia. You may shower, no hot tubs, baths or swimming pools.?Please follow the post op diet instructions you are?given by Dr Fam rodriges? and text me daily at 5-6pm for an update.?If you have any issues or concerns or questions please communicate this to him via text.? The Celebrate shakes have all of the bariatric vitamins you need if you consume these shakes. If you are drinking other protein shakes, you will need to purchase the Celebrate multivitamins and calcium that are available in the hospital gift shop on the first floor of the main hospital.??Do not take anything without first discussing with Dr Frost. Please make sure you are consuming at least 40 ounces of fluids per day starting the?day AFTER your discharge from the hospital. Always drink 1-2 ml per minute using the 5ml?syringe. If you drink faster you may experience?bloating,?gas pain, burping, nausea or heartburn. In that case please slow down your pace and use the syringe to?understand better the?proper?pace and volume of drinking. Do not hesitate to contact the office with any questions at . The patient's medical history has been reviewed and they are considered low risk for post op DVT and therefore DVT prophylaxis is not considered necessary. Travel after surgery was reviewed. The patient has not disclosed any travel plans during the first 30 days after surgery and they have been advised that within the first 30 days after surgery any bus, plane, train or car travel over 2 hours in duration is contraindicated due to the possibility of developing blood clots from immobility. Any travel, needs to include periods of ambulation of 10 minutes in duration every 2 hours. The patient was instructed to discuss any plans for travel during this period with their bariatric surgeon. Assessment: stable, post op sleeve gastrectomy
--- NOTE | 2023-06-12 10:01 | PHA.MEDREC ---
Pharmacy Consult ? Medication Reconciliation Pharmacy has completed the medication reconciliation. Reviewed med rec done by nursing
[2023-06-12 10:03] LABS: UPreg QC Valid YES; Urine Pregnancy NEGATIVE (NEGATIVE)
[2023-06-12] MEDS: Aprepitant 32 MG/4.4 ML VIAL IVPUSH (10:05)
[2023-06-12] MEDS: Lactated Ringers 1,000 ML 999 ML IV (10:06)
[2023-06-12 13:46] LABS: Hematocrit 40.4 % (37.0-47.0); Hemoglobin 14.2 g/dl (12.0-16.0)
[2023-06-12 14:02] LABS: Anion Gap 14 (12-20); Blood Urea Nitrogen 12 mg/dL (9-16); Calcium 9.3 mg/dL (8.4-10.2); Carbon Dioxide 21 mmol/L (22-29); Chloride 105 mmol/L (96-108); Creatinine Clr Calc Pharmacy 129.3; Estimated Glomerular Filt Rate > 60; Glucose Random 119 mg/dL (60-115); Potassium 3.7 mmol/L (3.3-5.1); Sodium 136 mmol/L (135-145)
[2023-06-12] MEDS: HYDROmorphone HCl 0.5 MG/0.5 ML SYRINGE IVPUSH (14:07)
[2023-06-12] MEDS: Famotidine/PF 20 MG/2 ML VIAL IVPUSH ×2 (15:10→19:56)
[2023-06-12] MEDS: Lactated Ringers 1,000 ML 100 ML IVCONT (15:10)
[2023-06-12] MEDS: Acetaminophen 1,000 MG/100 ML PIGGYBACK 400 MG IV (15:25)
[2023-06-12] MEDS: ceFAZolin Sodium/Dextrose,Iso 2 GM/50 ML PIGGYBACK IV (16:23)
[2023-06-12] MEDS: HYDROmorphone HCl 0.5 MG/0.5 ML SYRINGE 0.25 MG IVPUSH ×2 (18:24→22:45)
[2023-06-13 00:11] VITALS: BP 113/57; PULSE 72; RESP 18; TEMP 36.4; O2SAT 96
[2023-06-13] MEDS: Melatonin 3 MG TABLET 6 MG PO (00:49)
[2023-06-13] MEDS: Lactated Ringers 1,000 ML 100 ML IVCONT (00:50)
[2023-06-13] MEDS: 0.9 % Sodium Chloride Flush 3 ML SYRINGE IVFLUSH (00:50)
[2023-06-13] MEDS: Acetaminophen 1,000 MG/100 ML PIGGYBACK 400 MG IV (02:30)
[2023-06-13 06:30] LABS: Basophils Percent Auto 0.2 % (0-2); Hematocrit 39.8 % (37.0-47.0); Hemoglobin 13.9 g/dl (12.0-16.0); Imm Gran Abs Auto 0.04 X10*3/uL (0.00-0.03); Imm Gran Pct Auto 0.4 % (0.0-0.4); Lymphocytes Absolute Auto 0.8 X10*3/uL (1.2-4.9); Lymphocytes Percent Auto 7.5 % (20-40); MANUAL DIFF FLAG NO; Mean Corpuscular HGB Conc 34.9 g/dl (31.0-35.0); Mean Platelet Volume 9.8 fL (9.4-12.3); Monocytes Absolute Auto 0.3 X10*3/uL (0.1-1.2); Monocytes Percent Auto 2.9 % (2-11); Neutrophils Absolute Auto 9.9 x10*3/uL (2.0-8.3); Platelet Count 357 X10*3/uL (160-400); Red Blood Count 4.63 X10*6/uL (4.20-5.50); Red Cell Distribution Width 12.9 % (11.0-16.0); White Blood Count 11.1 X10*3/uL (4.8-10.8)
[2023-06-13] MEDS: Acetaminophen 325 MG TABLET 650 MG PO (06:40)
[2023-06-13 06:44] LABS: Anion Gap 13 (12-20); Blood Urea Nitrogen 9 mg/dL (9-16); Calcium 9.7 mg/dL (8.4-10.2); Carbon Dioxide 24 mmol/L (22-29); Chloride 106 mmol/L (96-108); Creatinine Clr Calc Pharmacy 140.3; Estimated Glomerular Filt Rate > 60; Glucose Random 110 mg/dL (60-115); Potassium 4.2 mmol/L (3.3-5.1); Sodium 139 mmol/L (135-145)
[2023-06-13] MEDS: HYDROmorphone HCl 0.5 MG/0.5 ML SYRINGE IVPUSH (06:45)
[2023-06-13 07:22] VITALS: BP 121/66; PULSE 70; RESP 18; TEMP 36.1; O2SAT 94
--- NOTE | 2023-06-13 09:09 | MHC.CM.PN ---
pt dcd home no skilled services ordered by
--- NOTE | 2023-06-13 10:54 | HO.POSTANES ---
Post Anesthesia Evaluation Post Anesthesia Evaluation Date of Service: 06/13/23 Vital Signs: Vital Signs Temp Pulse Resp BP Pulse Ox O2 Del Method 06/13/23 07:22 96.9 F 70 18 121/66 94 Room Air 06/13/23 00:11 97.6 F 72 18 113/57 L 96 Room Air Anesthesia: General Endotracheal-GETA Mental Status: Awake Pain Control: Satisfactory (mild incisional pain) Nausea/Vomiting: None Hydration: Adequate Anesthesia-Related Issues: No Anes. Related Issues
== END 2023-06-13 11:22 | disposition home or self-care (01) | DRG 403 ==
LOC: HO.SSSA 10:03 → HO.S3 13:16
PROVIDERS: Nurse Practitioner; Physician Assistant; Admitting Provider Surgery; PCP Nurse Practitioner Family; Visit Provider Surgery
PROC: 0DB64Z3 Excision of Stomach, Percutaneous Endoscopic Approach, Vertical (ICD-10-PCS; CPT 43845; principal; 2023-06-12 11:10)
DX: E66.01 Morbid (severe) obesity due to excess calories (principal); K74.00 Hepatic fibrosis, unspecified; K21.9 Gastro-esophageal reflux disease without esophagitis; K76.0 Fatty (change of) liver, not elsewhere classified; M54.30 Sciatica, unspecified side; Z68.43 Body mass index [BMI] 50.0-59.9, adult; Z79.899 Other long term (current) drug therapy
CPT/HCPCS: 36415; 80048; 80053; 80061; 81025; 83036; 83525; 84443; 85014; 85018; 85025; 85610; 85730; 86140; 86850; 86900; 86901; 88304; 88305; 88307; 88342; A4649; C9088; C9145; J0131; J0690; J1100; J1170; J2250; J2405; J2795; J3010

== ENCOUNTER → 2023-06-12 09:28 | Outpatient (BNV) | payer OTHER, SELFPAY | PROVIDERS: Admitting Provider Surgery; PCP Nurse Practitioner Family; Visit Provider Surgery | DX: E66.01 Morbid (severe) obesity due to excess calories (principal); Z68.43 Body mass index [BMI] 50.0-59.9, adult | CPT/HCPCS: 43659; 43775 ==

== ENCOUNTER 2023-06-19 12:58 | Outpatient (AMB) | payer OTHER, SELFPAY ==
--- NOTE | 2023-06-19 13:13 | MHC.OFFVISWM ---
Intake VS Expanded 06/19/23 13:40 Height 5 ft 2 in Weight 252 lb 12.8 oz BMI 46.2 BP 112/68 Blood Pressure Location Rt brachial Blood Pressure Position Sitting Respiratory Rate 16 Pulse 94 Pulse Source Pulse Oximeter Temp 97.5 F Temperature Source Temporal Artery Scan Pulse Oximetry 99 Oxygen Delivery Method Room Air Body Fat 118.6 Body Fat Percentage 46.9 Free Fat Mass 134.0 Muscle Mass 127.2 Visceral Mass 14.0 Water Mass 96.2 BMR 1,919 Intake Visit Reasons: (OV) 7 Days PO LSG 06/12/23 Allergies cat dander [CATS] Allergy (Severe, Verified 06/19/23 13:40) SOB SWELLING ITCHY pork derived (porcine) [PORK DERIVED (PORCINE)] Allergy (Severe, Verified 06/19/23 13:40) VOMITING, THROAT SWELLING HPI HPI Comments History of Present Illness Details POD #7s/p LSG on 06/12/[address] Luiz RAGSDALE weight of 300.4 lbs, TBWL is 47.6 lbs or 15.8%. Be sure to text Dr Frost your weight from your home scale exactly 1 week after surgery so he can adjust your meal plan. Continue meal plan until changes from DR Luiz Phillips shower, no submersion in bath for another week Continue abdominal binder with activity and exercise for the next 2 weeks. Exercise prior to surgery was Peloton and walking, may resume No abdominal exercises for 6 weeks post operatively You will be emailed a link for the post op video for review Reminded of the pace of drinking, 2 mL per minute, 1 oz/15 min. [facility] Medical History (Updated 06/04/23 @ 12:13 by Adarsh Frost MD) GERD (gastroesophageal reflux disease) Morbid obesity Elevated LFTs Diarrhea Hernia Sciatica Surgical History History of History of tonsillectomy Family History Mother No problems noted. Father Mental health disorder Substance use disorder Maternal Grandmother Hypertension Paternal Grandmother Diabetes Social History Household Members: Children Housing: House Are you a primary tree care foreman to a significant other at home: No Do you presently have visiting nurse or other home services: No Alcohol intake: current Alcohol intake frequency: does not drink Alcohol type: wine Patient Tobacco Use Status: Never used Tobacco e-Cigarette/Vaping Use: Never Used Second Hand Smoke Exposure: No Substance Use Type: Marijuana service: No Current occupational status: employed Current occupational exposures/hazards: No Cognitive needs: No Hearing needs: No Vision needs: No Physical Exam Vital Signs: Last Vital Signs Temp 97.5 F 06/19/23 13:40 Pulse 94 06/19/23 13:40 Resp 16 06/19/23 13:40 BP 112/68 06/19/23 13:40 Pulse Ox 99 06/19/23 13:40 Oxygen Delivery Method Room Air 06/19/23 13:40 BMI result Body Mass Index 46.2 Const General: cooperative, healthy appearing, comfortable and no acute distress GI Inspection: Yes incision (c/d/i with steri strips) Palpation (GI): Soft to palpation, nontender, no guarding, no hernias and no masses Assessment & Plan Assessment & Plan (1) S/P laparoscopic sleeve gastrectomy: Code(s): Z98.84 - Bariatric surgery status Plan: Will text Dr Otto today for meal and exercise plan changes. Rei study paperwork completed. Now that she stopped marijuana at night - having difficulty falling aslepep and staying asleep. will try melatonin 1 mg. Next appt with me at 30 - 34 days post op. Coding Level of Care Code Global (49894) Diagnoses S/P laparoscopic sleeve gastrectomy Z98.84
[2023-06-19 13:40] VITALS: BP 112/68; PULSE 94; RESP 16; TEMP 36.4; O2SAT 99; BMI 46.2
== END 2023-06-19 14:29 | disposition home or self-care (01) ==
PROVIDERS: Visit Provider Physician Assistant
DX: Z98.84 Bariatric surgery status (principal)
CPT/HCPCS: 99024

== ENCOUNTER → 2023-06-19 12:58 | Outpatient (BNVA) | payer OTHER, SELFPAY | PROVIDERS: Visit Provider Physician Assistant ==

== ENCOUNTER 2023-07-20 10:43 | Outpatient (AMB) | payer OTHER, SELFPAY ==
--- NOTE | 2023-07-20 10:57 | A.OFFVIS_ITS ---
Intake VS Expanded 07/20/23 11:04 BP 121/67 Blood Pressure Location Rt brachial Blood Pressure Position Sitting Pulse 70 Pulse Source Pulse Oximeter Temp 97.4 F Temperature Source Tympanic Pulse Oximetry 98 Oxygen Delivery Method Room Air Height 5 ft 2 in Weight 235 lb 9.6 oz BMI 43.1 Intake Visit Reasons: (OV) PO LSG 06/12/23 Allergies cat dander [CATS] Allergy (Severe, Verified 06/19/23 13:40) SOB SWELLING ITCHY pork derived (porcine) [PORK DERIVED (PORCINE)] Allergy (Severe, Verified 06/19/23 13:40) VOMITING, THROAT SWELLING Medication List - Last Reconciled 07/20/23 by Shanti Wells PA-C [id number]-ctr-vvmc-FA-vit K 45 mg iron- 800 mcg-120 mcg (Bariatric Multivitamins) caps PO pantoprazole 40 mg PO DAILY psyllium husk (Metamucil) 0.8 grams (2 x 0.4 gram) PO DAILY sucralfate 10 mL PO BID HPI HPI Comments History of Present Illness Details Pt is now 5 weeks s/p LSg withDR Otto. 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 Meal plan per Dr Otto - could not tole rate Celebrate 4: any more - now take bariatiric MVI. wakes - 6am 8am - Pure protein 1 scoop with 8 oz UAM - over 2 hours 11 am - Zone perfect bar - over 2 hours 3pm - shake same 8pm - bar Feels hungry at 2- 2:30 am Exercise - Peloton 4-5 d/week. Spin with weights. M, Th, F ,S [facility] Medical History (Updated 06/23/23 @ 18:39 by Adarsh Frost MD) GERD (gastroesophageal reflux disease) Morbid obesity Elevated LFTs Diarrhea Hernia Sciatica Surgical History History of History of tonsillectomy Family History Mother No problems noted. Father Mental health disorder Substance use disorder Maternal Grandmother Hypertension Paternal Grandmother Diabetes Social History Household Members: Children Housing: House Are you a primary school childcare attendant to a significant other at home: No Do you presently have visiting nurse or other home services: No Alcohol intake: current Alcohol intake frequency: does not drink Alcohol type: wine Patient Tobacco Use Status: Never used Tobacco e-Cigarette/Vaping Use: Never Used Second Hand Smoke Exposure: No Substance Use Type: Marijuana service: No Current occupational status: employed Current occupational exposures/hazards: No Cognitive needs: No Hearing needs: No Vision needs: No Physical Exam Vital Signs: Last Vital Signs Temp 97.4 F 07/20/23 11:04 Pulse 70 07/20/23 11:04 BP 121/67 07/20/23 11:04 Pulse Ox 98 07/20/23 11:04 Oxygen Delivery Method Room Air 07/20/23 11:04 BMI result Body Mass Index 43.1 Const General: cooperative, comfortable and no acute distress GI Inspection: Yes incision (all well healed) Palpation (GI): Soft to palpation, Tenderness to palpation present (GI) and Hernia present Assessment & Plan Assessment & Plan (1) S/P laparoscopic sleeve gastrectomy: Code(s): Z98.84 - Bariatric surgery status Plan: Meal plan 2 scoops Pure protein per shake due to hunger - add spices. does not want more sweetened stuff. Buy unflavored Isopure. 2 bars. Take SALVADORI whiel having second bar. Exercise - Peloton - 5 d- 400 calories, at least 30 minutes each. Contraception - IUD. Pt will now text me weekly with weights and questions. Next appt 4 weeks with me. Medications: New calcium citrate-vitamin D3 315 mg-5 mcg (200 unit) (Calcium Citrate + D) 1 tab PO BID 180 tabs 3RF Coding Level of Care Code Global (40509) Diagnoses S/P laparoscopic sleeve gastrectomy Z98.84
[2023-07-20 11:04] VITALS: BP 121/67; PULSE 70; TEMP 36.3; O2SAT 98; BMI 43.1
== END 2023-07-20 11:40 | disposition home or self-care (01) ==
PROVIDERS: Visit Provider Physician Assistant
DX: Z98.84 Bariatric surgery status (principal)
CPT/HCPCS: 99024

== ENCOUNTER → 2023-07-20 10:43 | Outpatient (BNVA) | payer OTHER, SELFPAY | PROVIDERS: Visit Provider Physician Assistant ==

== ENCOUNTER 2023-08-14 08:31 | Outpatient (AMB) | payer OTHER, SELFPAY ==
--- NOTE | 2023-08-14 08:36 | A.OFFVIS_ITS ---
Intake VS Expanded 08/14/23 08:45 BP 131/64 Blood Pressure Location Rt brachial Blood Pressure Position Sitting Pulse 88 Pulse Source Pulse Oximeter Temp 97.7 F Temperature Source Temporal Artery Scan Pulse Oximetry 96 Oxygen Delivery Method Room Air Height 5 ft 2 in Weight 222 lb 12.8 oz BMI 40.7 Body Fat % 41.2 Body Fat Mass 91.8 Fat Free Mass 131.0 Visceral Fat Rating 10.0 Body Water % 42.2 Body Water Mass 94.0 Muscle Mass/Score 124.4 Basal Metabolic Rate/Score 1,834 Intake Visit Reasons: (OV) PO LSG 06/12/23 Allergies cat dander [CATS] Allergy (Severe, Verified 08/14/23 08:39) SOB SWELLING ITCHY pork derived (porcine) [PORK DERIVED (PORCINE)] Allergy (Severe, Verified 08/14/23 08:39) VOMITING, THROAT SWELLING Medication List - Last Reconciled 08/14/23 by Shanti Wells PA-C calcium citrate-vitamin D3 315 mg-5 mcg (200 unit) (Calcium Citrate + D) 1 tab PO BID bfczrbmathpg-xox-hesa-FA-vit K 45 mg iron- 800 mcg-120 mcg (Bariatric Multivitamins) caps PO pantoprazole 40 mg PO DAILY psyllium husk (Metamucil) 0.8 grams (2 x 0.4 gram) PO DAILY sucralfate 10 mL PO BID HPI HPI Comments History of Present Illness Details Now 2 months s/p LSG, 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 TBWL is 77.6 lbs, 26%, has 13 lbs lost since last appt 3 weeks ago. Meal plan: feels tired of shakes. Can not drink at work - 6 am - 1pm. Wakes at 5am 8am - Premier powder 8 oz UAM, with shot espresso - over 2.5 hours 1 pm - Zone bar over 1 hour 3:30 pm - shake - over 2 hours 6pm - bar Exercise - did not exercise last week due ot her sons new diagnosis of epilepsy. Normally -5d/ week 30 - 45 minutes on Peloton - 450 calories.Then sometimes does the ST for 15 minutes. [facility] Medical History (Updated 06/23/23 @ 18:39 by Adarsh Frost MD) GERD (gastroesophageal reflux disease) Morbid obesity Elevated LFTs Diarrhea Hernia Sciatica Surgical History (Updated 08/14/23 @ 08:40 by Jeannette Rodriguez CMA) S/P laparoscopic sleeve gastrectomy History of History of tonsillectomy Family History Mother No problems noted. Father Mental health disorder Substance use disorder Maternal Grandmother Hypertension Paternal Grandmother Diabetes Social History (Updated 08/14/23 @ 08:40 by Jeannette Rodriguez [facility]) Household Members: Children Housing: House Are you a primary after school caregiver to a significant other at home: No Do you presently have visiting nurse or other home services: No Alcohol intake: former Patient Tobacco Use Status: Never used Tobacco e-Cigarette/Vaping Use: Never Used Second Hand Smoke Exposure: No Substance Use Type: Marijuana service: No Current occupational status: employed Current occupational exposures/hazards: No Cognitive needs: No Hearing needs: No Vision needs: No Assessment & Plan Assessment & Plan (1) Morbid obesity: Code(s): E66.01 - Morbid (severe) obesity due to excess calories Plan: 7am - 25 grams protein - shake 11 pm - 25 grams - bar 4pm - 25 grams - bar 6pm - 1 scrambled egg 20 grams of protein water with bars Restart exercise today -- text me weekly (2) S/P laparoscopic sleeve gastrectomy: Code(s): Z98.84 - Bariatric surgery status Plan: see above Coding Level of Care Code Global (36416) Diagnoses Morbid obesity E66.01 S/P laparoscopic sleeve gastrectomy Z98.84
[2023-08-14 08:45] VITALS: BP 131/64; PULSE 88; TEMP 36.5; O2SAT 96; BMI 40.7
== END 2023-08-14 09:13 | disposition home or self-care (01) ==
PROVIDERS: Visit Provider Physician Assistant
DX: E66.01 Morbid (severe) obesity due to excess calories (principal); Z68.41 Body mass index [BMI] 40.0-44.9, adult; Z90.3 Acquired absence of stomach [part of]; Z98.84 Bariatric surgery status
CPT/HCPCS: 99024

== ENCOUNTER → 2023-08-14 08:31 | Outpatient (BNVA) | payer OTHER, SELFPAY | PROVIDERS: Visit Provider Physician Assistant ==

== ENCOUNTER 2023-09-09 13:30 | Emergency (ER) | payer OTHER, SELFPAY ==
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
[2023-09-09 13:32] VITALS: BP 121/70; PULSE 79; RESP 18; TEMP 36.6; O2SAT 99; BMI 39.8
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
[2023-09-09 18:00] VITALS: PULSE 67; RESP 18; O2SAT 97
[2023-09-09] MEDS: Lidocaine 4 % Patch ADH..PATCH 1 PATCH TRANSDERMA (18:15)
== END 2023-09-09 18:22 | disposition home or self-care (01) ==
PROVIDERS: Emergency Provider Emergency Medicine; PCP Nurse Practitioner Family
DX: S49.92XA Unspecified injury of left shoulder and upper arm, initial encounter (principal); V43.52XA Car driver injured in collision with other type car in traffic accident, initial encounter; Y93.9 Activity, unspecified; Y92.9 Unspecified place or not applicable; Y99.0 Civilian activity done for income or pay; M25.512 Pain in left shoulder; R07.9 Chest pain, unspecified
CPT/HCPCS: 71101; 99283

== ENCOUNTER 2023-09-10 15:31 | Outpatient (AMB) | payer OTHER, SELFPAY ==
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
[2023-09-10 14:47] VITALS: BMI 39.0
== END 2023-09-10 15:35 | disposition home or self-care (01) ==
LOC: HO.HBS 15:31
PROVIDERS: PCP Nurse Practitioner Family; Visit Provider Physician Assistant
DX: Z98.84 Bariatric surgery status (principal); M79.3 Panniculitis, unspecified
CPT/HCPCS: 99024

== ENCOUNTER → 2023-09-10 15:31 | Outpatient (BNVA) | payer OTHER, SELFPAY | PROVIDERS: PCP Nurse Practitioner Family; Visit Provider Physician Assistant | DX: M79.3 Panniculitis, unspecified (principal); Z98.84 Bariatric surgery status | CPT/HCPCS: 99212 ==

== ENCOUNTER 2023-10-09 13:38 | Outpatient (AMB) | payer OTHER, SELFPAY ==
--- NOTE | 2023-10-09 13:31 | MHC.AMNUTRGE ---
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 reports due to this stress, isn't sure how much protein she is eating . 2 bars (either quest or zone 1 shake premier powder - occasionally premade (2 scoops teta8jn almond milk) 1 meal - eggs or protein Vitamins: Opurity chewable - 1 per day is the dose Diagnosis Nutrition problem #1 overweight/obesity As related to (etiology) #1 excess energy intake and physical inactivity As evidenced by (sign/symptom) #1 high BMI Monitoring/Goals Nutrition problem monitoring total energy intake, level of knowledge/skill, total PRO intake, total CHO intake, weight and oral fluids Outcome progress progressing Learning/Education Readiness to learn good Stages of change action Most Recent Diabetes Results: Cholesterol 145 mg/dL (<200) 06/05/23 HDL Cholesterol 28 mg/dL (>40) L 06/05/23 Triglycerides 83 mg/dL (<150) 06/05/23 Creatinine 0.71 mg/dL (0.5-1.4) 06/13/23 Blood Urea Nitrogen 9 mg/dL (9-16) 06/13/23 Sodium 139 mmol/L (135-145) 06/13/23 Potassium 4.2 mmol/L (3.3-5.1) 06/13/23 Chloride 106 mmol/L (96-108) 06/13/23 Carbon Dioxide 24 mmol/L (22-29) 06/13/23 Calcium 9.7 mg/dL (8.4-10.2) 06/13/23 AST 31 U/L (5-31) 06/05/23 ALT 36 U/L (0-31) H 06/05/23 Total Protein 7.4 g/dL (6.5-8.0) 06/05/23 Albumin 4.1 g/dL (3.5-5.0) 06/05/23 PFSH Medical History GERD (gastroesophageal reflux disease) Morbid obesity Elevated LFTs Diarrhea Hernia Sciatica Surgical History S/P laparoscopic sleeve gastrectomy History of History of tonsillectomy Family History Mother No problems noted. Father Mental health disorder Substance use disorder Maternal Grandmother Hypertension Paternal Grandmother Diabetes Social History Household Members: Children Housing: House Are you a primary pet care technician to a significant other at home: No Do you presently have visiting nurse or other home services: No Alcohol intake: former Patient Tobacco Use Status: Never used Tobacco e-Cigarette/Vaping Use: Never Used Second Hand Smoke Exposure: No Substance Use Type: Marijuana service: No Current occupational status: employed Current occupational exposures/hazards: No Cognitive needs: No Hearing needs: No Vision needs: No Assessment & Plan Assessment & Plan (1) Morbid obesity: Code(s): E66.01 - Morbid (severe) obesity due to excess calories (2) S/P laparoscopic sleeve gastrectomy: Code(s): Z98.84 - Bariatric surgery status Plan No changes or concerns. she will see Shanti for next f/u as previously scheduled and communicate as needed with office Telehealth Telehealth Location of provider rendering services: practice address Location of patient: address on file Patient Identification confirmed using: Name, : Yes Telehealth method: video Patient verbally consented to treatment: Yes Patient verbally consented to billing insurance company: Yes Patient informed of any privacy concerns related to visit: Yes Minutes spent on Phone/Video with Pt.: 20 Coding Level of Care Code Nutr Indiv Subseq (19210) Diagnoses Morbid obesity E66.01 S/P laparoscopic sleeve gastrectomy Z98.84 Time Spent (min) 20
[2023-10-09 13:50] VITALS: BMI 37.5
== END 2023-10-09 13:51 | disposition home or self-care (01) ==
LOC: HO.HBS 13:38
PROVIDERS: PCP Nurse Practitioner Family; Visit Provider Dietitian, Registered
DX: E66.01 Morbid (severe) obesity due to excess calories (principal); Z98.84 Bariatric surgery status

== ENCOUNTER → 2023-10-09 13:38 | Outpatient (BNVA) | payer OTHER, SELFPAY | PROVIDERS: PCP Nurse Practitioner Family; Visit Provider Dietitian, Registered | DX: E66.01 Morbid (severe) obesity due to excess calories (principal); Z68.37 Body mass index [BMI] 37.0-37.9, adult; Z98.84 Bariatric surgery status; Z71.3 Dietary counseling and surveillance | CPT/HCPCS: 97803 ==

== ENCOUNTER 2023-10-22 14:00 | Outpatient (AMB) | payer OTHER, SELFPAY ==
--- NOTE | 2023-10-22 14:06 | A.OFFVIS_ITS ---
Intake VS Expanded 10/22/23 14:12 Height 5 ft 2 in Weight 200 lb BMI 36.6 Intake Visit Reasons: (TV) PO LSG 06/12/23 Allergies cat dander [CATS] Allergy (Severe, Verified 09/09/23 13:31) SOB SWELLING ITCHY pork derived (porcine) [PORK DERIVED (PORCINE)] Allergy (Severe, Verified 09/09/23 13:31) VOMITING, THROAT SWELLING Medication List - Last Reconciled 10/22/23 by DURGA Chawla-Soo calcium citrate-vitamin D3 315 mg-5 mcg (200 unit) (Calcium Citrate + D) 1 tab PO BID clotrimazole 1% 1 appl topical BID docusate sodium (Colace) 100 mg PO DAILY lidocaine 5% (Lidoderm) 1 patch topical DAILY dzlobhoiyvxw-dxv-wqte-FA-vit K 45 mg iron- 800 mcg-120 mcg (Bariatric Multivitamins) caps PO psyllium husk (Metamucil) 0.8 grams (2 x 0.4 gram) PO DAILY HPI HPI Comments History of Present Illness Details Pt is now 4 months s/p 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 People still sick in her family, she just got oer strept throat. Meal plan -daily 2 shakes, 1 bar and 1 meal 7-8 am --Premier shake with coffee and U AM 12pm - bar 4pm- meal (4 forks prot and 2 of veg) or bar bar shakes Exercise- has not been able to be consisite due to family illnesses. [facility] Medical History GERD (gastroesophageal reflux disease) Morbid obesity Elevated LFTs Diarrhea Hernia Sciatica Surgical History S/P laparoscopic sleeve gastrectomy History of History of tonsillectomy Family History Mother No problems noted. Father Mental health disorder Substance use disorder Maternal Grandmother Hypertension Paternal Grandmother Diabetes Social History Household Members: Children Housing: House Are you a primary long term care pharmacist to a significant other at home: No Do you presently have visiting nurse or other home services: No Alcohol intake: former Patient Tobacco Use Status: Never used Tobacco e-Cigarette/Vaping Use: Never Used Second Hand Smoke Exposure: No Substance Use Type: Marijuana service: No Current occupational status: employed Current occupational exposures/hazards: No Cognitive needs: No Hearing needs: No Vision needs: No Assessment & Plan Assessment & Plan (1) S/P laparoscopic sleeve gastrectomy: Code(s): Z98.84 - Bariatric surgery status Plan: Pt is 4 months post op with 100 lb weight loss so far, her meal plan is excellent and will continue without changes. Her post op labs are ordered for her 6 month follow up. Exercise - very difficult to find time with her perpetually sick family. we discussed that she must find 30 minutes at least 5 d/week to use her Peloton, she is trying. Next appt at 6 months. Clotrimazole for panniculitis refilled. Patient is still obese and is not considered stable at this time. I spent 26 minutes in total speaking with the patient via video conference counseling , reviewing records and charting in patients chart. . (2) Panniculitis: Code(s): M79.3 - Panniculitis, unspecified (3) Obesity: Code(s): E66.9 - Obesity, unspecified Plan see above Orders: Orders Lipid Panel Today E66.9 - Obesity, unspecified, Z98.84 - Bariatric surgery status IRON PROFILE Today E66.9 - Obesity, unspecified, Z98.84 - Bariatric surgery status Zinc Today E66.9 - Obesity, unspecified, Z98.84 - Bariatric surgery status Vitamin B1 Today E66.9 - Obesity, unspecified, Z98.84 - Bariatric surgery status TSH reflex Free T4 Today E66.9 - Obesity, unspecified, Z98.84 - Bariatric surgery status Ferritin Today E66.9 - Obesity, unspecified, Z98.84 - Bariatric surgery status Vitamin D 25-OH Total Today E66.9 - Obesity, unspecified, Z98.84 - Bariatric surgery status Insulin Today E66.9 - Obesity, unspecified, Z98.84 - Bariatric surgery status Hemoglobin A1c Today E66.9 - Obesity, unspecified, Z98.84 - Bariatric surgery status Complete Blood Count Auto Diff Today E66.9 - Obesity, unspecified, Z98.84 - Bariatric surgery status Comprehensive Met. Panel Today E66.9 - Obesity, unspecified, Z98.84 - Bariatric surgery status Vitamin B12 and Folate Today E66.9 - Obesity, unspecified, Z98.84 - Bariatric surgery status C Reactive Protein Today E66.9 - Obesity, unspecified, Z98.84 - Bariatric surgery status Vitamin A Today E66.9 - Obesity, unspecified, Z98.84 - Bariatric surgery status US abdomen comp w elastography Today E66.9 - Obesity, unspecified, Z98.84 - Bariatric surgery status Medications: New docusate sodium (Colace) 100 mg PO DAILY 90 caps 3RF Refilled clotrimazole 1% 1 appl topical BID 90 grams 3RF Telehealth Telehealth Location of provider rendering services: practice address Location of patient: address on file Patient Identification confirmed using: Name, : Yes Telehealth method: video Patient verbally consented to treatment: Yes Patient verbally consented to billing insurance company: Yes Patient informed of any privacy concerns related to visit: Yes Coding Level of Care Code Tele Est Pt Level 4 (29035) Diagnoses S/P laparoscopic sleeve gastrectomy Z98.84 Panniculitis M79.3 Obesity E66.9
[2023-10-22 14:12] VITALS: BMI 36.6
== END 2023-10-22 14:26 | disposition home or self-care (01) ==
LOC: HO.HBS 14:23
PROVIDERS: PCP Nurse Practitioner Family; Visit Provider Physician Assistant
DX: E66.9 Obesity, unspecified (principal); Z68.36 Body mass index [BMI] 36.0-36.9, adult; Z98.84 Bariatric surgery status; M79.3 Panniculitis, unspecified
CPT/HCPCS: 99214

== ENCOUNTER → 2023-10-22 14:00 | Outpatient (BNVA) | payer OTHER, SELFPAY | PROVIDERS: PCP Nurse Practitioner Family; Visit Provider Physician Assistant | DX: Z98.84 Bariatric surgery status (principal); M79.3 Panniculitis, unspecified; E66.9 Obesity, unspecified ==

== ENCOUNTER 2023-12-10 14:00 | Outpatient (AMB) | payer OTHER, SELFPAY ==
--- NOTE | 2023-12-10 13:25 | MHC.OFFVISWM ---
Intake VS Expanded 12/10/23 14:08 Height 5 ft 2 in Weight 188 lb BMI 34.4 Intake Visit Reasons: (TV) PO LSG 06/12/23 Allergies cat dander [CATS] Allergy (Severe, Verified 09/09/23 13:31) SOB SWELLING ITCHY pork derived (porcine) [PORK DERIVED (PORCINE)] Allergy (Severe, Verified 09/09/23 13:31) VOMITING, THROAT SWELLING Medication List - Last Reconciled 12/10/23 by DURGA Chawla-Soo calcium citrate-vitamin D3 315 mg-5 mcg (200 unit) (Calcium Citrate + D) 1 tab PO BID clotrimazole 1% 1 appl topical BID msyglyrkamer-xau-drxx-FA-vit K 45 mg iron- 800 mcg-120 mcg (Bariatric Multivitamins) caps PO psyllium husk (Metamucil) 0.8 grams (2 x 0.4 gram) PO DAILY HPI HPI Comments History of Present Illness Details Pt is 6 months s/p LSG, 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 Pt finds it extremely difficult and uncomfortable to exercise due to large low hanging pannus that flaps, making loud noises. Which is extremely embarrassing when she exercises. She is using cotton under pannus to absorb sweat. Exercise - cardio 4d/week - treadmill - will check calories burned. ST 5 d/ week. Meal plan: 1 meal per day 6:30 am - protein shake (30 grams) or 1 egg with low sodium ham and no fat cheddar cheese and vegetables 12 pm - bar - 20 grams 3pm- bar 6pm - shake or meal of 2oz lean protein and 2 oz vegetable Post op complications: none HAZEL: never DM: never HTN: never Hyperlipidemia: never GERD: 0 Satisfaction with present condition - satisfied [facility] Medical History GERD (gastroesophageal reflux disease) Morbid obesity Elevated LFTs Diarrhea Hernia Sciatica Surgical History S/P laparoscopic sleeve gastrectomy History of History of tonsillectomy Family History Mother No problems noted. Father Mental health disorder Substance use disorder Maternal Grandmother Hypertension Paternal Grandmother Diabetes Social History Household Members: Children Housing: House Are you a primary healthcare representative to a significant other at home: No Do you presently have visiting nurse or other home services: No Alcohol intake: former Patient Tobacco Use Status: Never used Tobacco e-Cigarette/Vaping Use: Never Used Second Hand Smoke Exposure: No Substance Use Type: Marijuana service: No Current occupational status: employed Current occupational exposures/hazards: No Cognitive needs: No Hearing needs: No Vision needs: No Physical Exam GI Inspection: Yes Abdominal panniculus present and Yes scar (well healed) Palpation (GI): Soft to palpation, nontender, no hernias and no masses Assessment & Plan Assessment & Plan (1) S/P laparoscopic sleeve gastrectomy: Code(s): Z98.84 - Bariatric surgery status Plan: 6 months post op doing great. Will get post op labs done now. Will text me her cardio workouts so that I can help her increase now. Goal is 1.5 - 2 lbs per week weight loss. Needs 80 grams protein per day 7 am - premier powder - 30 gr 12 pm - bar -20 gr 3pm - bar - 20 gr 6pm - 2 oz/2 oz - 14 g Next appt 3 months with Annie. Patient is still obese and is not considered stable at this time. I spent 30 minutes in total speaking with the patient via video conference counseling , reviewing records and charting in patients chart. . (2) Panniculitis: Code(s): M79.3 - Panniculitis, unspecified Plan: Continue good hygiene and clotrimazole prn. Telehealth Telehealth Location of provider rendering services: practice address Location of patient: address on file Patient Identification confirmed using: Name, : Yes Telehealth method: video Patient verbally consented to treatment: Yes Patient verbally consented to billing insurance company: Yes Patient informed of any privacy concerns related to visit: Yes Coding Level of Care Code Tele Est Pt Level 4 (90197) Diagnoses S/P laparoscopic sleeve gastrectomy Z98.84 Panniculitis M79.3
[2023-12-10 14:08] VITALS: BMI 34.4
== END 2023-12-10 14:40 | disposition home or self-care (01) ==
LOC: HO.HBS 14:10
PROVIDERS: PCP Nurse Practitioner Family; Visit Provider Physician Assistant
DX: E66.9 Obesity, unspecified (principal); Z68.34 Body mass index [BMI] 34.0-34.9, adult; Z90.3 Acquired absence of stomach [part of]; M79.3 Panniculitis, unspecified
CPT/HCPCS: 99214

== ENCOUNTER → 2023-12-10 14:00 | Outpatient (BNVA) | payer BC, SELFPAY | PROVIDERS: PCP Nurse Practitioner Family; Visit Provider Physician Assistant | DX: Z98.84 Bariatric surgery status (principal); M79.3 Panniculitis, unspecified; E66.9 Obesity, unspecified ==

== ENCOUNTER 2023-12-20 09:02 | Outpatient (REF) | payer OTHER, SELFPAY ==
[2023-12-20 09:18] LABS: MANUAL DIFF FLAG NO
[2023-12-20 09:31] LABS: Basophils Absolute Auto 0.1 X10*3/uL (0.0-0.2); Eosinophils Absolute Auto 0.1 X10*3/uL (0.0-0.4); Eosinophils Percent Auto 2.7 % (0-4); Hematocrit 40.7 % (37.0-47.0); Hemoglobin 14.3 g/dl (12.0-16.0); Imm Gran Abs Auto 0.01 X10*3/uL (0.00-0.03); Imm Gran Pct Auto 0.2 % (0.0-0.4); Lymphocytes Absolute Auto 1.5 X10*3/uL (1.2-4.9); Mean Corpuscular HGB Conc 35.1 g/dl (31.0-35.0); Mean Corpuscular Volume 85.3 fL (80.0-98.0); Mean Platelet Volume 8.9 fL (9.4-12.3); Monocytes Absolute Auto 0.3 X10*3/uL (0.1-1.2); Monocytes Percent Auto 5.1 % (2-11); Neutrophils Absolute Auto 3.2 x10*3/uL (2.0-8.3); Platelet Count 291 X10*3/uL (160-400); Red Blood Count 4.77 X10*6/uL (4.20-5.50); Red Cell Distribution Width 12.4 % (11.0-16.0); White Blood Count 5.1 X10*3/uL (4.8-10.8)
[2023-12-20 09:33] LABS: Estimated Average Glucose 85 mg/dL; Hemoglobin A1c % 4.6 % (<6.0)
[2023-12-20 10:01] LABS: Alanine Aminotransferase 18 U/L (0-31); Albumin Level 4.2 g/dL (3.5-5.0); Alkaline Phosphatase 71 U/L (39-117); Anion Gap 11 (12-20); Aspartate Amino Transferase 23 U/L (5-31); Bilirubin Total 0.7 mg/dL (0.0-1.0); Blood Urea Nitrogen 15 mg/dL (9-16); C Reactive Protein 0.59 mg/dL (< or = 0.50); Calcium 9.8 mg/dL (8.4-10.2); Carbon Dioxide 29 mmol/L (22-29); Chloride 105 mmol/L (96-108); Cholesterol 181 mg/dL (<200); Estimated Glomerular Filt Rate > 60; Glucose Random 98 mg/dL (60-115); HDL Cholesterol 43 mg/dL (>40); Iron 86 mcg/dL (30-160); LDL Cholesterol Calculated 122 mg/dL (<100); Percent Iron Saturation 32 % (15-50); Potassium 3.8 mmol/L (3.3-5.1); Sodium 141 mmol/L (135-145); Total Iron Binding Capacity 272 mcg/dL (228-428); Total Protein 7.6 g/dL (6.5-8.0); Triglycerides 81 mg/dL (<150); Unsaturated Iron Binding 186 ug/dL
[2023-12-20 10:17] LABS: Ferritin 271 ng/mL (10-122); Insulin 8 uU/mL (2-29); TSH reflex Free T4 1.11 uIU/mL (0.32-4.0); Vitamin D 25-OH Total 36.8 ng/mL (>30)
[2023-12-20 12:12] LABS: Folate 12.7 ng/mL (> or = 4.0); Vitamin B12 683 pg/mL (200-900)
[2023-12-23 12:49] LABS: Zinc 42 mcg/dL (60-130)
== END 2023-12-20 09:03 | disposition home or self-care (01) ==
LOC: HO.LAB 09:02
PROVIDERS: Visit Provider Physician Assistant
DX: E66.9 Obesity, unspecified (principal); M79.3 Panniculitis, unspecified; Z98.84 Bariatric surgery status
CPT/HCPCS: 36415; 80053; 80061; 82306; 82607; 82728; 82746; 83036; 83525; 83540; 84443; 84630; 85025; 86140

== ENCOUNTER 2023-12-20 09:18 | Outpatient (AMB) | payer OTHER, SELFPAY ==
--- NOTE | 2023-12-20 09:21 | A.OFFVIS_ITS ---
Intake VS Expanded 12/20/23 09:32 BP 103/63 Blood Pressure Location Rt brachial Blood Pressure Position Sitting Pulse 61 Pulse Source Pulse Oximeter Temp 97.2 F Temperature Source Temporal Artery Scan Pulse Oximetry 99 Oxygen Delivery Method Room Air Height 5 ft 2 in Weight 185 lb 12.8 oz BMI 34.0 Body Fat % 33.5 Body Fat Mass 62.2 Fat Free Mass 123.4 Visceral Fat Rating 7.0 Body Water % 47.6 Body Water Mass 88.4 Muscle Mass/Score 117.2 Basal Metabolic Rate/Score 1,688 Intake Visit Reasons: (OV) LSG 06/12/2023 Allergies cat dander [CATS] Allergy (Severe, Verified 12/20/23 09:27) SOB SWELLING ITCHY pork derived (porcine) [PORK DERIVED (PORCINE)] Allergy (Severe, Verified 09:27) VOMITING, THROAT SWELLING Medication List - Last Reconciled 12/20/23 by DRUGA Smith [biotin PO] calcium citrate-vitamin D3 315 mg-5 mcg (200 unit) (Calcium Citrate + D) 1 tab PO BID clotrimazole 1% 1 appl topical BID [fish oil PO] fdjaijjmwdth-dti-bdus-FA-vit K 45 mg iron- 800 mcg-120 mcg (Bariatric Multivitamins) caps PO HPI HPI Comments History of Present Illness Details This?is a?33?yo female who is s/p G 06/12/2023. Was seen in office 10d ago, -2.2 weight change since that OV. No complaints of nausea, emesis, a bdominal pain or reflux, or constipation. Pt returns today to talk about the problems of her excess skin. Present meal plan includes: 7 am - premier powder - 30 gr 12 pm - bar -20 gr 3pm - bar - 20 gr 6pm - 2 oz/2 oz - 14 g Exercise - cardio 4d/week - treadmill. ST 5 d/ week. Pt finds it extremely difficult and uncomfortable to exercise due to large low hanging pannus that flaps, making loud noises. Which is extremely embarrassing when she exercises. She is using cotton under pannus to absorb sweat. This results in painful rashes for which clotrimazole ointment has recently been ordered. The excess skin is so heavy that it causes back pain due to imbalance. She has tried abdominal binders/girdles and has even tried 2 at a time but this did not help and was very irritating to her skin. She notes feeling regretful sometimes about pursuing weight loss surgery now that she is experiencing all of these issues. COUNTS INCLUDE 234 BEDS AT THE [facility] Medical History GERD (gastroesophageal reflux disease) Morbid obesity Elevated LFTs Diarrhea Hernia Sciatica Surgical History S/P laparoscopic sleeve gastrectomy History of History of tonsillectomy Family History Mother No problems noted. Father Mental health disorder Substance use disorder Maternal Grandmother Hypertension Paternal Grandmother Diabetes Social History (Updated 12/20/23 @ 09:30 by Jeannette Rodriguez CMA) Household Members: Children Housing: House Are you a primary landcare facilitator to a significant other at home: No Do you presently have visiting nurse or other home services: No Alcohol intake: current Alcohol intake frequency: holidays/special occasions only Patient Tobacco Use Status: Never used Tobacco e-Cigarette/Vaping Use: Never Used Second Hand Smoke Exposure: No Substance Use Type: Marijuana service: No Current occupational status: employed Current occupational exposures/hazards: No Cognitive needs: No Hearing needs: No Vision needs: No Physical Exam Vital Signs: Last Vital Signs Temp 97.2 F 12/20/23 09:32 Pulse 61 12/20/23 09:32 BP 103/63 12/20/23 09:32 Pulse Ox 99 12/20/23 09:32 Oxygen Delivery Method Room Air 12/20/23 09:32 BMI result Body Mass Index 34.0 Const General: cooperative, comfortable and no acute distress Orientation/consciousness: patient oriented x3 GI Other: soft, nontender, nondistended, incisions well healed, no hernia, no masses Grade III pannus Neuro General: patient oriented x3 Assessment & Plan Assessment & Plan (1) Obesity: Code(s): E66.9 - Obesity, unspecified (2) Panniculitis: Code(s): M79.3 - Panniculitis, unspecified (3) S/P laparoscopic sleeve gastrectomy: Code(s): Z98.84 - Bariatric surgery status Plan Discussed our office's requirement of BMI closer to 25 prior to skin removal surgery. Pt believes her insurance company may not have a 12-18 month requirement postop prior to skin removal surgery based on a conversation she had with an agent. Provided the name of Dr. Narendra Luther whom pt will contact to inquire about the possibility of skin removal surgery/requirements of their office. Texted pt my phone # to reach out between appts with additional concerns. RTC in 3 months for previously scheduled appt with me. Patient is obese and with problems of excess skin of abdomen and is not considered stable at this time. I spent a total of 30 minutes reviewing/updating records, examining the patient and counseling the patient on weight management as detailed above. Coding Level of Care Code Est Pt Level 4 (46025) Diagnoses Obesity E66.9 Panniculitis M79.3 S/P laparoscopic sleeve gastrectomy Z98.84
[2023-12-20 09:32] VITALS: BP 103/63; PULSE 61; TEMP 36.2; O2SAT 99; BMI 34.0
== END 2023-12-20 09:58 | disposition home or self-care (01) ==
PROVIDERS: PCP Nurse Practitioner Family; Visit Provider Physician Assistant Surgical
DX: E66.9 Obesity, unspecified (principal); Z68.34 Body mass index [BMI] 34.0-34.9, adult; M79.3 Panniculitis, unspecified; Z98.84 Bariatric surgery status
CPT/HCPCS: 99214

== ENCOUNTER 2024-02-07 11:43 | Outpatient (AMB) | payer OTHER, SELFPAY ==
--- NOTE | 2024-02-07 11:51 | MHC.OFFVISWM ---
VS Expanded 02/07/24 11:52 Height 5 ft 2 in Weight 179 lb 2 oz BMI 32.8 Intake Visit Reasons: (TELEPHONE) PO LSG 06/12/23 Allergies cat dander [CATS] Allergy (Severe, Verified 12/20/23 09:27) SOB SWELLING ITCHY pork derived (porcine) [PORK DERIVED (PORCINE)] Allergy (Severe, Verified 12/20/23 09:27) VOMITING, THROAT SWELLING Medication List - Last Reconciled 02/07/24 by DURGA Smith [biotin PO] calcium citrate-vitamin D3 315 mg-5 mcg (200 unit) (Calcium Citrate + D) 1 tab PO BID clotrimazole 1% 1 appl topical BID [fish oil PO] tyefoamtixyr-qfn-jsub-FA-vit K 45 mg iron- 800 mcg-120 mcg (Bariatric Multivitamins) caps PO zinc sulfate (Orazinc) 25 mg PO DAILY HPI Comments Details: This?is a?33?yo female who is s/p LSG 06/12/2023. Presents for 8 month post op visit. Weight at last visit on 12/20/2023 was 185.8 pounds with a BMI of 34, weight today is 179.2 pounds, representing a 6.6 pound weight loss with a BMI today of 32.8.? No complaints of nausea, emesis, abdominal pain or reflux, or constipation. Present meal plan includes: 7 am - premier powder - 30 gr 12 pm - bar -20 gr 4:30pm - 2 oz/2 oz - 14 g 6:30pm - bar - 20 gr sometimes will have 2 meals instead of 1, will exchange for breakfast shake Exercise - cardio 4d/week - treadmill. ST 5 d/ week. Pt finds it extremely difficult and uncomfortable to exercise due to large low hanging pannus that flaps, making loud noises. Which is extremely embarrassing when she exercises. She is using cotton under pannus to absorb sweat. This results in painful rashes for which clotrimazole ointment has recently been ordered. She has tried abdominal binders/girdles and has even tried 2 at a time but this did not help and was very irritating to her skin. Pt reports occasional loss of balance when she is going downstairs- thinks it may be due to heaviness of excess skin weight causing imbalance. No dizziness or other symptoms prior to these episodes. Having a lot of upper back pain as well. Pt reports she was able to get an appointment with Dr. Luther's office for February 25. [facility] Medical History GERD (gastroesophageal reflux disease) Morbid obesity Elevated LFTs Diarrhea Hernia Sciatica Surgical History S/P laparoscopic sleeve gastrectomy History of History of tonsillectomy Family History Mother No problems noted. Father Mental health disorder Substance use disorder Maternal Grandmother Hypertension Paternal Grandmother Diabetes Social History (Updated 12/20/23 @ 09:30 by Jeannette Rodriguez CMA) Household Members: Children Housing: House Are you a primary home care nurse to a significant other at home: No Do you presently have visiting nurse or other home services: No Alcohol intake: current Alcohol intake frequency: holidays/special occasions only Patient Tobacco Use Status: Never used Tobacco e-Cigarette/Vaping Use: Never Used Second Hand Smoke Exposure: No Substance Use Type: Marijuana service: No Current occupational status: employed Current occupational exposures/hazards: No Cognitive needs: No Hearing needs: No Vision needs: No Telehealth Telehealth Telehealth Platform: Telephone Location of provider rendering services: practice address Location of patient: address on file Patient Identification confirmed using: Name, : Yes Telehealth method: voice only Patient verbally consented to treatment: Yes Patient verbally consented to billing insurance company: Yes Patient informed of any privacy concerns related to visit: Yes Minutes spent on Phone/Video with Pt.: 15 Assessment & Plan Assessment & Plan (1) Obesity: Code(s): E66.9 - Obesity, unspecified Category: Medical (2) Panniculitis: Code(s): M79.3 - Panniculitis, unspecified Category: Medical (3) S/P laparoscopic sleeve gastrectomy: Code(s): Z98.84 - Bariatric surgery status Category: Surgical Plan No changes made to meal plan today. Pt is very happy with her progress so far, ability to lift heavy weights, fit into smaller clothes, getting compliments on her fitness etc. She continues to have issues of excess skin causing frequent painful rashes of excess skin of abdomen which are not improved by topical rx treatments, special clothing/compressive garments, or frequent cleaning. She is now experiencing what I believe to be imbalance issues due to excess skin changing her center of gravity. She would benefit from skin removal surgery for definitive treatment. Clotrimazole ointment refilled. RTC 2 months. Patient is obese and is not considered stable at this time. I spent a total of 30 minutes reviewing/updating records, examining the patient and counseling the patient on weight management as detailed above. Medications: Refilled clotrimazole 1% 1 appl topical BID 90 grams 3RF
[2024-02-07 11:52] VITALS: BMI 32.8
== END 2024-02-07 12:10 | disposition home or self-care (01) ==
LOC: HO.HBS 11:43
PROVIDERS: PCP Nurse Practitioner Family; Visit Provider Physician Assistant Surgical
DX: E66.9 Obesity, unspecified (principal); M79.3 Panniculitis, unspecified; Z98.84 Bariatric surgery status
CPT/HCPCS: 99214

== ENCOUNTER → 2024-02-07 11:43 | Outpatient (BNVA) | payer OTHER, SELFPAY | PROVIDERS: PCP Nurse Practitioner Family; Visit Provider Physician Assistant Surgical | DX: Z98.84 Bariatric surgery status (principal); M79.3 Panniculitis, unspecified; E66.9 Obesity, unspecified ==

== ENCOUNTER 2024-04-30 11:20 | Outpatient (AMB) | payer OTHER, SELFPAY ==
--- NOTE | 2024-04-30 10:30 | MHC.OFFVISWM ---
VS Expanded 04/30/24 10:33 Height 5 ft 2 in Weight 173 lb BMI 31.6 Intake Visit Reasons: (TELEPHONE) PO LSG 06/12/23 Allergies cat dander [CATS] Allergy (Severe, Verified 12/20/23 09:27) SOB SWELLING ITCHY pork derived (porcine) [PORK DERIVED (PORCINE)] Allergy (Severe, Verified 12/20/23 09:27) VOMITING, THROAT SWELLING Medication List - Last Reconciled 04/30/24 by DURGA Smith [biotin PO] calcium citrate-vitamin D3 315 mg-5 mcg (200 unit) (Calcium Citrate + D) 1 tab PO BID clotrimazole 1% 1 appl topical BID [fish oil PO] rcmwbsvaximc-axj-uwix-FA-vit K 45 mg iron- 800 mcg-120 mcg (Bariatric Multivitamins) caps PO zinc sulfate (Orazinc) 25 mg PO DAILY HPI Comments Details: This?is a?34?yo female who is s/p LSG 06/12/2023. Presents for 10.5 month post op visit. Weight at last visit on 02/06/2023 was 179.2 pounds with a BMI of 32.8, weight today is 173 pounds, representing a 6.2 pound weight loss with a BMI today of 31.6.? No complaints of nausea, emesis, abdominal pain or reflux, or constipation. Present meal plan includes: 7 am - Fairlife shake - 30 gr 12 pm - Fairlife - 30 gr 4:30pm - 2 oz/2 oz - 14 g 6:30pm - bar - 20 gr sometimes will have 2 meals instead of 1, will exchange for breakfast shake gets 80g protein, taking MVI/Ca Exercise - cardio 4d/week - treadmill. ST 5 d/ week Pt finds it extremely difficult and uncomfortable to exercise due to large low hanging pannus that flaps, making loud noises. Which is extremely embarrassing when she exercises. She is using cotton under pannus to absorb sweat. This results in painful rashes for which clotrimazole ointment has recently been ordered. She has tried abdominal binders/girdles and has even tried 2 at a time but this did not help and was very irritating to her skin. Pt reports occasional loss of balance when she is going downstairs- thinks it may be due to heaviness of excess skin weight causing imbalance. No dizziness or other symptoms prior to these episodes. Having a lot of upper back pain as well. Pt reports she did see Dr. Luther for a consult. PENDING SALE TO [facility] Medical History GERD (gastroesophageal reflux disease) Morbid obesity Elevated LFTs Diarrhea Hernia Sciatica Surgical History S/P laparoscopic sleeve gastrectomy History of History of tonsillectomy Family History Mother No problems noted. Father Mental health disorder Substance use disorder Maternal Grandmother Hypertension Paternal Grandmother Diabetes Social History (Updated 12/20/23 @ 09:30 by Jeannette Rodriguez CMA) Household Members: Children Housing: House Are you a primary career technical education instructor to a significant other at home: No Do you presently have visiting nurse or other home services: No Alcohol intake: current Alcohol intake frequency: holidays/special occasions only Patient Tobacco Use Status: Never used Tobacco e-Cigarette/Vaping Use: Never Used Second Hand Smoke Exposure: No Substance Use Type: Marijuana service: No Current occupational status: employed Current occupational exposures/hazards: No Cognitive needs: No Hearing needs: No Vision needs: No Telehealth Telehealth Telehealth Platform: Telephone Location of provider rendering services: practice address Location of patient: address on file Patient Identification confirmed using: Name, : Yes Telehealth method: voice only Patient verbally consented to treatment: Yes Patient verbally consented to billing insurance company: Yes Patient informed of any privacy concerns related to visit: Yes Minutes spent on Phone/Video with Pt.: 15 Assessment & Plan Assessment & Plan (1) Obesity: Code(s): E66.9 - Obesity, unspecified Category: Medical (2) S/P laparoscopic sleeve gastrectomy: Code(s): Z98.84 - Bariatric surgery status Category: Surgical (3) Panniculitis: Code(s): M79.3 - Panniculitis, unspecified Category: Medical Plan Pt reports her personal goal weight is 165. We discussed that her BMI will be under 30 if she is able to achieve 163lbs. Will continue same meal plan, exercise regimen. She is happy with her pace of weight loss. Will repeat labs at next visit. Clotrimazole refilled, she is planning to see Dr. Luther again near end of year. RTC 2 months. I spent a total of 30 minutes reviewing/updating records, examining the patient and counseling the patient on weight management as detailed above. Medications: Refilled clotrimazole 1% 1 appl topical BID 90 grams 3RF
[2024-04-30 10:33] VITALS: BMI 31.6
== END 2024-04-30 11:22 | disposition home or self-care (01) ==
LOC: HO.HBS 11:20
PROVIDERS: PCP Nurse Practitioner Family; Visit Provider Physician Assistant Surgical
DX: E66.9 Obesity, unspecified (principal); Z98.84 Bariatric surgery status; M79.3 Panniculitis, unspecified
CPT/HCPCS: 99214

== ENCOUNTER → 2024-04-30 11:20 | Outpatient (BNVA) | payer OTHER, SELFPAY | PROVIDERS: PCP Nurse Practitioner Family; Visit Provider Physician Assistant Surgical ==

== ENCOUNTER → 2024-07-08 07:58 | Outpatient (BNVA) | payer OTHER, SELFPAY | PROVIDERS: PCP Nurse Practitioner Family; Visit Provider Physician Assistant Surgical ==

== ENCOUNTER 2024-07-09 09:46 | Outpatient (AMB) | payer OTHER, SELFPAY ==
--- NOTE | 2024-07-09 09:31 | A.OFFVIS_ITS ---
Intake Visit Reasons: TELEPHONE PO LSG 06/12/23 Allergies cat dander [CATS] Allergy (Severe, Verified 12/20/23 09:27) SOB SWELLING ITCHY pork derived (porcine) [PORK DERIVED (PORCINE)] Allergy (Severe, Verified 12/20/23 09:27) VOMITING, THROAT SWELLING Medication List - Last Reconciled 07/09/24 by DURGA Smith [biotin PO] calcium citrate-vitamin D3 315 mg-5 mcg (200 unit) (Calcium Citrate + D) 1 tab PO BID clotrimazole 1% 1 appl topical BID [fish oil PO] dtrbojciirmg-nve-uzoz-FA-vit K 45 mg iron- 800 mcg-120 mcg (Bariatric Multivitamins) caps PO zinc sulfate (Orazinc) 25 mg PO DAILY HPI Comments Details: This?is a?34?yo female who is s/p LSG 06/12/2023. Presents for 1 year post op visit. Weight at last visit on 04/30/2024 was 173 pounds with a BMI of 31.6, weight today is 166 pounds, representing a 7 pound weight loss with a BMI today of 30.4.? No complaints of nausea, emesis, abdominal pain or reflux, or constipation. Present meal plan includes: 7 am - Fairlife shake - 30 gr 12 pm - Fairlife - 30 gr 4:30pm - 2 oz/2 oz - 14 g 6:30pm - bar - 20 gr sometimes will have 2 meals instead of 1, will exchange for breakfast shake gets 80g protein, taking MVI/Ca Exercise - cardio 4d/week - treadmill. ST 5 d/ week Pt finds it extremely difficult and uncomfortable to exercise due to large low hanging pannus that flaps, making loud noises. Which is extremely embarrassing when she exercises. She also now notices difficulty with sexual activity with her , with skin getting in the way. She is using cotton under pannus to absorb sweat. This results in painful rashes for which clotrimazole ointment has recently been ordered. She has tried abdominal binders/girdles and has even tried 2 at a time but this did not help and was very irritating to her skin. Pt reports occasional loss of balance when she is going downstairs- thinks it may be due to heaviness of excess skin weight causing imbalance. No dizziness or other symptoms prior to these episodes. Having a lot of upper back pain as well. Pt previously saw Dr. Luther for a consult, also asked for her records to be sent to Dr. Lara. [facility] Medical History GERD (gastroesophageal reflux disease) Morbid obesity Elevated LFTs Diarrhea Hernia Sciatica Surgical History S/P laparoscopic sleeve gastrectomy History of History of tonsillectomy Family History Mother No problems noted. Father Mental health disorder Substance use disorder Maternal Grandmother Hypertension Paternal Grandmother Diabetes Social History (Updated 12/20/23 @ 09:30 by Jeannette Rodriguez CMA) Household Members: Children Housing: House Are you a primary intensive care unit nurse to a significant other at home: No Do you presently have visiting nurse or other home services: No Alcohol intake: current Alcohol intake frequency: holidays/special occasions only Patient Tobacco Use Status: Never used Tobacco e-Cigarette/Vaping Use: Never Used Second Hand Smoke Exposure: No Substance Use Type: Marijuana service: No Current occupational status: employed Current occupational exposures/hazards: No Cognitive needs: No Hearing needs: No Vision needs: No Telehealth Telehealth Telehealth Platform: Telephone Location of provider rendering services: other Location of patient: address on file Patient Identification confirmed using: Name, : Yes Telehealth method: voice only Patient verbally consented to treatment: Yes Patient verbally consented to billing insurance company: Yes Patient informed of any privacy concerns related to visit: Yes Minutes spent on Phone/Video with Pt.: 15 Assessment & Plan Assessment & Plan (1) Obesity: Code(s): E66.9 - Obesity, unspecified Category: Medical (2) S/P laparoscopic sleeve gastrectomy: Code(s): Z98.84 - Bariatric surgery status Category: Surgical (3) Panniculitis: Code(s): M79.3 - Panniculitis, unspecified Category: Medical Plan Pt is experiencing issues of excess skin of abdomen resulting in frequent, painful rashes refractory to rx treatment. The skin is also causing severe impedence to activities of daily living, including walking and sexual activity. Pt would benefit from panniculectomy. Will contact cloud engagement partner to determine postop time required by pt's insurance. At this time pt has healthy body composition with healthy body fat %, healthy visceral fat, high muscle mass. BMI still over 30 so I asked pt to continue to work on weight loss to get BMI under 30. At that time I will discuss with Dr. Otto need for panniculectomy. Pt currently with 44% EBWL. Labs ordered. RTC 3 months. I spent a total of 30 minutes reviewing/updating records, examining the patient and counseling the patient on weight management as detailed above. Orders: Orders Insulin Today Z98.84 - Bariatric surgery status Vitamin B12 and Folate Today Z98.84 - Bariatric surgery status C Reactive Protein Today Z98.84 - Bariatric surgery status Vitamin A Today Z98.84 - Bariatric surgery status Vitamin D 25-OH Total Today Z98.84 - Bariatric surgery status Hemoglobin A1c Today Z98.84 - Bariatric surgery status Complete Blood Count Auto Diff Today Z98.84 - Bariatric surgery status Lipid Panel Today Z98.84 - Bariatric surgery status IRON PROFILE Today Z98.84 - Bariatric surgery status Comprehensive Met. Panel Today Z98.84 - Bariatric surgery status Zinc Today Z98.84 - Bariatric surgery status Vitamin B1 Today Z98.84 - Bariatric surgery status TSH reflex Free T4 Today Z98.84 - Bariatric surgery status Ferritin Today Z98.84 - Bariatric surgery status
== END 2024-07-09 10:04 | disposition home or self-care (01) ==
LOC: HO.HBS 09:46
PROVIDERS: PCP Nurse Practitioner Family; Visit Provider Physician Assistant Surgical
DX: E66.9 Obesity, unspecified (principal); Z98.84 Bariatric surgery status; M79.3 Panniculitis, unspecified
CPT/HCPCS: 99214

== ENCOUNTER → 2024-07-09 09:46 | Outpatient (BNVA) | payer OTHER, SELFPAY | PROVIDERS: PCP Nurse Practitioner Family; Visit Provider Physician Assistant Surgical ==

== ENCOUNTER 2024-09-15 09:56 | Outpatient (AMB) | payer OTHER, SELFPAY ==
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
[2024-09-15 10:14] VITALS: BP 121/66; PULSE 87; TEMP 36.6; O2SAT 99; BMI 31.0
== END 2024-09-15 10:32 | disposition home or self-care (01) ==
PROVIDERS: PCP Nurse Practitioner Family; Visit Provider Physician Assistant Surgical
DX: E66.9 Obesity, unspecified (principal); Z98.84 Bariatric surgery status; M79.3 Panniculitis, unspecified
CPT/HCPCS: 99214

== ENCOUNTER 2024-09-15 09:56 | Outpatient (REF) | payer OTHER, SELFPAY ==
[2024-09-15 10:42] LABS: MANUAL DIFF FLAG NO
[2024-09-15 11:17] LABS: Basophils Absolute Auto 0.1 X10*3/uL (0.0-0.2); Basophils Percent Auto 1.3 % (0-2); Eosinophils Absolute Auto 0.1 X10*3/uL (0.0-0.4); Eosinophils Percent Auto 2.1 % (0-4); Hematocrit 40.7 % (37.0-47.0); Hemoglobin 14.1 g/dl (12.0-16.0); Imm Gran Abs Auto 0.01 X10*3/uL (0.00-0.03); Imm Gran Pct Auto 0.2 % (0.0-0.4); Lymphocytes Absolute Auto 1.6 X10*3/uL (1.2-4.9); Lymphocytes Percent Auto 29.1 % (20-40); Mean Corpuscular HGB Conc 34.6 g/dl (31.0-35.0); Mean Corpuscular Volume 86.6 fL (80.0-98.0); Mean Platelet Volume 8.7 fL (9.4-12.3); Monocytes Absolute Auto 0.3 X10*3/uL (0.1-1.2); Monocytes Percent Auto 4.9 % (2-11); Neutrophils Absolute Auto 3.4 x10*3/uL (2.0-8.3); Neutrophils Percent Auto 62.4 % (45-73); Platelet Count 313 X10*3/uL (160-400); Red Cell Distribution Width 12.6 % (11.0-16.0); White Blood Count 5.4 X10*3/uL (4.8-10.8)
[2024-09-15 11:29] LABS: Estimated Average Glucose 80 mg/dL; Hemoglobin A1c % 4.4 % (<6.0); Total Hemoglobin (HGBA1C) 3641.4501 umol/L
[2024-09-15 11:55] LABS: Alanine Aminotransferase 23 U/L (0-31); Albumin Level 4.1 g/dL (3.5-5.0); Alkaline Phosphatase 70 U/L (39-117); Anion Gap 8 (12-20); Aspartate Amino Transferase 28 U/L (5-31); Bilirubin Total 0.6 mg/dL (0.0-1.0); Blood Urea Nitrogen 11 mg/dL (9-16); Calcium 8.7 mg/dL (8.4-10.2); Carbon Dioxide 30 mmol/L (22-29); Chloride 106 mmol/L (96-108); Cholesterol 172 mg/dL (<200); Estimated Glomerular Filt Rate > 60; Glucose Random 89 mg/dL (60-115); HDL Cholesterol 54 mg/dL (>40); Iron 96 mcg/dL (30-160); LDL Cholesterol Calculated 107 mg/dL (<100); Percent Iron Saturation 35 % (15-50); Potassium 4.2 mmol/L (3.3-5.1); Sodium 140 mmol/L (135-145); Total Iron Binding Capacity 277 mcg/dL (228-428); Triglycerides 59 mg/dL (<150); Unsaturated Iron Binding 181 ug/dL
[2024-09-15 12:22] LABS: Folate 6.5 ng/mL (> or = 4.0); Vitamin B12 416 pg/mL (200-900)
[2024-09-15 12:52] LABS: Ferritin 169 ng/mL (10-122); TSH reflex Free T4 0.62 uIU/mL (0.32-4.0); Vitamin D 25-OH Total 33.5 ng/mL (>30)
[2024-09-15 14:41] LABS: Insulin 6 uU/mL (2-29)
[2024-09-19 19:09] LABS: Zinc 54 mcg/dL (60-130)
[2024-09-20 09:04] LABS: Vitamin B1 24 nmol/L (8-30)
== END 2024-09-15 09:57 | disposition home or self-care (01) ==
LOC: HO.LAB 09:56
PROVIDERS: Physician Assistant; PCP Nurse Practitioner Family; Visit Provider Physician Assistant Surgical
DX: E66.9 Obesity, unspecified (principal); Z98.84 Bariatric surgery status; M79.3 Panniculitis, unspecified; Z13.1 Encounter for screening for diabetes mellitus
CPT/HCPCS: 36415; 80053; 80061; 82306; 82607; 82728; 82746; 83036; 83525; 83540; 84425; 84443; 84590; 84630; 85025; 86140

== ENCOUNTER 2024-10-28 09:13 | Emergency (ER) | payer OTHER, SELFPAY ==
--- OUTSIDE RECORDS SUMMARY | 2024-10-28 11:11 | XMS_ITS | Clinical Summary ---
Author Organization [facility] Address [address] [place] [address] Care Team Providers Care Powdered Metal Supervisor Name Role Phone Pcp, No Primary Care Provider Unavailabl e Allergies No known active allergies Medications No known medications Social History Tobacco Use Types Packs/Day Years Used Date Smoking Tobacco: Never Assessed Sex and Gender Information Value Date Recorded Sex Assigned at Not on file Gender Identity Not on file Sexual Orientation Not on file Last Filed Vital Signs Vital Sign Reading Time Taken Comments Blood Pressure 120/78 03/21/2022 3:54 PM EDT Pulse 112 03/21/2022 3:54 PM EDT Temperature 36.4 ??C (97.5 ??F) 03/21/2022 3:54 PM ED T Respiratory Rate - - Oxygen Saturation 96% 03/21/2022 3:54 PM EDT Inhaled Oxygen Concentration - - Weight - - Height - - Body Mass Index - - Plan of Treatment Health Maintenance Due Date Last Done Comments Hepatitis C Virus Screening 1989 HIV Screening 2002 DTaP/Tdap/Td Vaccines (1 - Tdap) 2008 Hepatitis B Vaccines (1 of 3 - 19+ 3-dose series) 2008 Pap Smear (Ages 21-65) 2010 Influenza Vaccine 04/24/2024 07/05/2017 COVID-19 Vaccine ( - 2023-2 5 season) 2024 HPV Vaccines Aged Out No longer eligi ble based on patient's age to complete this topic Pneumococcal Vaccine: Pediat luis (0-5 Years) and At-Risk Patients (6 to 49 Years) Aged Out No longer eligible b ased on patient's age to complete this topic Care Teams Powdered Metal Supervisor Relationship Specialty Start Date End Date Pcp, No PCP - General General Medicine 02/20/22
--- OUTSIDE RECORDS SUMMARY | 2024-10-28 11:11 | XMS_ITS | Clinical Summary ---
Author Organization [facility] Address [id number] [place] [id number] Care Team Providers Care Commercial Credit Reviewer Name Role Phone Jessica Francisco MD Primary Care Provider [phone] Surgical History Surgery Date Site/Laterality Comments OTHER SURGICAL HISTORY PROCEDURE: DENIES PREVIOUS SURGERY SECTION 09/26/2017 PROCEDURE: HISTORICAL DELIVERY TONSILLECTOMY PROCEDURE: HISTORICAL TONSILLECTOMY COLONOSCOPY PROCEDURE: HISTORICAL COLONOSCOPY Medical History Medical History Date Comments Allergic rhinitis DX:Allergic rh initis Esophageal reflux DX:Esophageal reflux Arthritis DX:Arthritis Depressive disorder DX:Depressiv e disorder Bipolar 1 disorder (CMS/HCC) DX: Bipolar 1 disorder ([facility]) Family History Medical History Relation Name Comments Mental illness Father Hyperlipidemia Maternal Grandmother Mental illness Mother Relation Name Status Comments Father Maternal Grandmother Mother Social History Tobacco Use Types Packs/Day Years Used Date Smoking Tobacco: Never Smokeless Tobacco: Never Alcohol Use Standard Drinks/Week Comments No 0 (1 standard drink = 0.6 oz pur e alcohol) Sex and Gender Information Value Date Recorded Sex Assigned at Not on file Gender Identity Not on file Sexual Orientation Not on file Obstetrics History Plan of Treatment Health Maintenance Due Date Last Done Comments DTaP,Tdap,and Td Vaccines (5 - Tdap) 2000 01/23/1994, 06/11/1991, 1989, Additional history exists Cervical Cancer Screening: Pap Smear 2010 Cholesterol Screening (Lipid Panel) 08/22/2022 Depression Screening 08/22/2022 HIV Screening 08/22/2022 Hepatitis C Screening 08/22/2022 Social Influencers of Health Screening 08/22/2022 COVID-19 Vaccine ( season) 2024 Influenza Vaccine (#1) 2024 IPV Vaccines Completed 01/23/1994, 05/25, 1989, Additional history exists Hepatitis B Vaccines Completed 06/10/2004, 08/04/1993, 11/01/1992 MMR Vaccines Completed 06/10/2004, 07/26/1990 HIB Vaccines Aged Out No longer eligi ble based on patient's age to complete this topic HPV Vaccines Aged Out No longer eligi ble based on patient's age to complete this topic Hepatitis A Vaccines Aged Out No long er eligible based on patient's age to complete this topic Meningococcal ACWY Vaccine Aged Out N o longer eligible based on patient's age to complete this topic Pneumococcal Vaccine: Pediatrics (0 to 5 Years) and At-Risk Patients (6 to 64 Years) Aged Out No longer eligible based on patient's age to complete this topic RSV Immunization Patients Under 20 months Aged Out No longer eligible based on patient's age to complete this topic Varicella Vaccines Aged Out No longer eligible based on patient's age to complete this topic Care Teams Commercial Credit Reviewer Relationship Specialty Start Date End Date Jessica Francisco MD [address] PCP - General Internal Medicine 06/17/19
== END 2024-10-28 15:35 | disposition left against medical advice (07) ==
PROVIDERS: Emergency Provider Emergency Medicine; PCP Nurse Practitioner Family
DX: Z91.81 History of falling (principal)

== ENCOUNTER 2025-03-11 10:25 | Outpatient (AMB) | payer OTHER, SELFPAY ==
--- NOTE | 2025-03-11 10:51 | MHC.OFFVISWM ---
VS Expanded 03/11/25 11:14 BP 115/67 Blood Pressure Location Rt brachial Blood Pressure Position Sitting Pulse 90 Pulse Source Pulse Oximeter Temp 97.6 F Temperature Source Temporal Artery Scan Pulse Oximetry 90 L Oxygen Delivery Method Room Air Height 5 ft 3 in Weight 172 lb 6.4 oz BMI 30.5 Body Fat % 28.4 Body Fat Mass 49.0 Fat Free Mass 123.2 Visceral Fat Rating 5.0 Body Water % 51.2 Body Water Mass 88.2 Muscle Mass/Score 117.0 Basal Metabolic Rate/Score 1,661 Intake Visit Reasons: (OV) PO LSG 06/12/23 - discuss skin removal Allergies cat dander (CATS) Allergy (Severe, Verified 09/15/24 10:15) SOB SWELLING ITCHY pork derived (porcine) (PORK DERIVED (PORCINE)) Allergy (Severe, Verified 09/15/24 10:15) VOMITING, THROAT SWELLING Medication List - Last Reconciled 03/11/25 by DURGA Smith [biotin PO] calcium citrate-vitamin D3 315 mg-5 mcg (200 unit) (Calcium Citrate + D) 1 tab PO BID clotrimazole 1% 1 appl topical BID [fish oil PO] ubwxiobzmlln-xji-spjl-FA-vit K 45 mg iron- 800 mcg-120 mcg (Bariatric Multivitamins) caps PO tirzepatide (weight loss) (Zepbound) 2.5 mg (0.5 mL) subcut QWEEK zinc sulfate (Orazinc) 25 mg PO DAILY HPI Comments Details: This?is a?34?yo F who is s/p [facility] [place] 06/12/2023. Weight gain of 2.8lbs since last OV 6mo ago. No complaints of nausea, emesis, abdominal pain or reflux, or constipation. Present meal plan includes: breakfast- Fairlife protein shake 12 pm- protein bar another protein bar (Built puff or Premier) 6:30pm - 2 oz/2 oz - 14 g gets 80g protein, taking MVI/Ca Exercise - cardio 4d/week burning 1200 kevin/week - treadmill or elliptical, plus one group class; also ST 4-5 d/ week. Believes she is burning 2000 kevin/week through various exercise. Pt finds it extremely difficult and uncomfortable to exercise due to large low hanging pannus that flaps, making loud noises. Which is extremely embarrassing when she exercises. She also now notices difficulty with sexual activity with her , with skin getting in the way. She is using cotton under pannus to absorb sweat. This results in painful rashes for which clotrimazole ointment has recently been ordered. She has tried abdominal binders/girdles and has even tried 2 at a time but this did not help and was very irritating to her skin. She reports worsening rashes to the point of bleeding. Pt reports occasional loss of balance when she is going downstairs- thinks it may be due to heaviness of excess skin weight causing imbalance. No dizziness or other symptoms prior to these episodes. Having a lot of upper back pain as well. Pt previously saw Dr. Luther for a consult, also asked for her records to be sent to Dr. Lara. She reports she would prefer Dr Otto to do her panniculectomy and have breast surgery with Dr. Lara. [facility] Medical History GERD (gastroesophageal reflux disease) Morbid obesity Elevated LFTs Diarrhea Hernia Sciatica Surgical History S/P laparoscopic sleeve gastrectomy History of History of tonsillectomy Family History Mother No problems noted. Father Mental health disorder Substance use disorder Maternal Grandmother Hypertension Paternal Grandmother Diabetes Social History Household Members: Children Housing: House Are you a primary healthcare advisory services manager to a significant other at home: No Do you presently have visiting nurse or other home services: No Alcohol intake: current Alcohol intake frequency: holidays/special occasions only Patient Tobacco Use Status: Never used Tobacco e-Cigarette/Vaping Use: Never Used Second Hand Smoke Exposure: No Substance Use Type: Marijuana service: No Current occupational status: employed Current occupational exposures/hazards: No Cognitive needs: No Hearing needs: No Vision needs: No Assessment & Plan Assessment & Plan (1) S/P laparoscopic sleeve gastrectomy: Code(s): Z98.84 - Bariatric surgery status Category: Surgical (2) Obesity: Code(s): E66.9 - Obesity, unspecified Category: Medical (3) Panniculitis: Code(s): M79.3 - Panniculitis, unspecified Category: Medical Plan Pt has previously diagnosed HAZEL. Also struggling with weight loss. Will order GLP1. Reviewed contraindications, discussed dosing. Discussed need for adequate protein intake while on GLP1s as well as frequent communication with our office. Pt is aware that subsequent Rx will be dependent on frequent communication. Pt is experiencing issues of excess skin of abdomen resulting in frequent, painful rashes refractory to rx treatment. The skin is also causing severe impedence to activities of daily living, including walking and sexual activity. Pt would benefit from panniculectomy. At this time pt has healthy body composition with healthy body fat %, healthy visceral fat, high muscle mass. Pt currently with over 40% EBWL. Encouraged pt to follow a meal plan with primarily protein bars/shakes and 1 meal per day, also increase exercise to 2000 kevin burned per week, start tracking calories burned while walking. RTC 6w. Medications: New tirzepatide (weight loss) (Zepbound) for 4 weeks 2.5 mg (0.5 mL) subcut QWEEK 2 mL 0RF
[2025-03-11 11:14] VITALS: BP 115/67; PULSE 90; TEMP 36.4; O2SAT 90; BMI 30.5
--- OUTSIDE RECORDS SUMMARY | 2025-03-11 11:49 | XMS_ITS | Clinical Summary ---
Author Organization [facility] Address [address] [place] [address] Care Team Providers Care Boatswain Mate Name Role Phone Pcp, No Primary Care Provider Unavailabl e Allergies No known active allergies Medications No known medications Social History Tobacco Use Types Packs/Day Years Used Date Smoking Tobacco: Never Assessed Comments Unknown Sex and Gender Information Value Date Recorded Sex Assigned at Not on file Legal Sex Female 5:02 PM EDT Gender Identity Not on file Sexual Orientation Not on file Last Filed Vital Signs Vital Sign Reading Time Taken Comments Blood Pressure 120/78 03/21/2022 3:54 PM EDT Pulse 112 03/21/2022 3:54 PM EDT Temperature 36.4 C (97.5 F) 03/21/2022 3:54 PM EDT Respiratory Rate - - Oxygen Saturation 96% [...] series) 2008 Pap Smear (Ages 21-65) 2010 COVID-19 Vaccine ( - 2023-2 5 season) 2024 Influenza Vaccine 04/24/2025 07/05/2017 HPV Vaccines Aged Out No longer eligi ble based on patient's age to complete this topic Pneumococcal Vaccine: Pediat luis (0-5 Years) and At-Risk Patients (6 to 49 Years) Aged Out No longer eligible b ased on patient's age to complete this topic Insurance [facility] Care Teams Boatswain Mate Relationship Specialty Start Date End Date Pcp, No PCP - General General Medicine 02/20/22
== END 2025-03-11 11:45 | disposition home or self-care (01) ==
LOC: HO.HBS 10:25
PROVIDERS: PCP Nurse Practitioner Family; Visit Provider Physician Assistant Surgical
DX: M79.3 Panniculitis, unspecified (principal); E66.9 Obesity, unspecified; Z68.30 Body mass index [BMI] 30.0-30.9, adult; Z98.84 Bariatric surgery status
CPT/HCPCS: 99214

== ENCOUNTER → 2025-03-11 10:25 | Outpatient (BNVA) | payer OTHER, SELFPAY | PROVIDERS: PCP Nurse Practitioner Family; Visit Provider Physician Assistant Surgical ==

== ENCOUNTER 2025-04-23 10:22 | Outpatient (AMB) | payer OTHER, SELFPAY ==
--- NOTE | 2025-04-23 10:31 | MHC.OFFVISWM ---
VS Expanded 04/23/25 10:40 BP 124/76 Blood Pressure Location Rt brachial Blood Pressure Position Sitting Pulse 95 Pulse Source Pulse Oximeter Temp 96.0 F L Temperature Source Temporal Artery Scan Pulse Oximetry 97 Oxygen Delivery Method Room Air Height 5 ft 3 in Weight 165 lb BMI 29.2 Body Fat % 26.9 Body Fat Mass 44.4 Fat Free Mass 120.6 Visceral Fat Rating 4.0 Body Water % 52.3 Body Water Mass 86.2 Muscle Mass/Score 114.4 Basal Metabolic Rate/Score 1,618 Intake Visit Reasons: (OV) PO LSG 06/12/23 discuss skin removal Allergies cat dander (CATS) Allergy (Severe, Verified 04/23/25 10:36) SOB SWELLING ITCHY pork derived (porcine) (PORK DERIVED (PORCINE)) Allergy (Severe, Verified 04/23/25 10:36) VOMITING, THROAT SWELLING Medication List - Last Reconciled 04/23/25 by DURGA Smith [biotin PO] calcium citrate-vitamin D3 315 mg-5 mcg (200 unit) (Calcium Citrate + D) 1 tab PO BID clotrimazole 1% 1 appl topical BID [fish oil PO] odqmvchwuadv-dtf-afxk-FA-vit K 45 mg iron- 800 mcg-120 mcg (Bariatric Multivitamins) caps PO zinc sulfate (Orazinc) 25 mg PO DAILY HPI Comments Details: This?is a?35?yo F who is s/p [facility] 06/12/2023. Weight loss of 7.4lbs since last OV 6w ago. No complaints of nausea, emesis, abdominal pain or reflux, or constipation. Present meal plan includes: breakfast- Fairlife protein shake 12 pm- protein bar another protein bar (Built puff or Premier) 6:30pm - 2 oz/2 oz - 14 g gets 80g protein, taking MVI/Ca Exercise - cardio 4d/week burning 1200 kevin/week - treadmill or elliptical, plus one group class; also ST 4-5 d/ week. Believes she is burning 2000 kevin/week through various exercise. Pt finds it extremely difficult and uncomfortable to exercise due to large low hanging pannus that flaps, making loud noises. Which is extremely embarrassing when she exercises. She also now notices difficulty with sexual activity with her , with skin getting in the way. She is using cotton under pannus to absorb sweat. This results in painful rashes for which clotrimazole ointment has recently been ordered. She has tried abdominal binders/girdles and has even tried 2 at a time but this did not help and was very irritating to her skin. She reports worsening rashes to the point of bleeding. Pt reports occasional loss of balance when she is going downstairs- thinks it may be due to heaviness of excess skin weight causing imbalance. No dizziness or other symptoms prior to these episodes. She has experienced this more often recently. Having a lot of upper back pain as well. Pt previously saw Dr. Luther for a consult, also has an appt with Dr Lara in May. She reports she would prefer Dr Otto to do her panniculectomy and have breast surgery with Dr. Lara. [facility] Medical History GERD (gastroesophageal reflux disease) Morbid obesity Elevated LFTs Diarrhea Hernia Sciatica Surgical History S/P laparoscopic sleeve gastrectomy History of History of tonsillectomy Family History Mother No problems noted. Father Mental health disorder Substance use disorder Maternal Grandmother Hypertension Paternal Grandmother Diabetes Social History Household Members: Children Housing: House Are you a primary health care administrator to a significant other at home: No Do you presently have visiting nurse or other home services: No Alcohol intake: current Alcohol intake frequency: holidays/special occasions only Patient Tobacco Use Status: Never used Tobacco e-Cigarette/Vaping Use: Never Used Second Hand Smoke Exposure: No Substance Use Type: Marijuana service: No Current occupational status: employed Current occupational exposures/hazards: No Cognitive needs: No Hearing needs: No Vision needs: No Physical Exam Const General: cooperative, comfortable and no acute distress Orientation/consciousness: patient oriented x3 GI Other: soft, nontender, nondistended, incisions well healed Grade III pannus Neuro General: patient oriented x3 Assessment & Plan Assessment & Plan (1) S/P laparoscopic sleeve gastrectomy: Code(s): Z98.84 - Bariatric surgery status Category: Surgical (2) Overweight: Code(s): E66.3 - Overweight Category: Medical (3) Panniculitis: Code(s): M79.3 - Panniculitis, unspecified Category: Medical Plan Pt is experiencing issues of excess skin of abdomen resulting in frequent, painful rashes refractory to rx treatment. The skin is also causing severe impedence to activities of daily living, including walking and sexual activity. Pt would benefit from panniculectomy. At this time pt has healthy body composition with healthy body fat %, healthy visceral fat, high muscle mass. Pt currently with over 40% EBWL. Pt will continue to follow a meal plan with primarily protein bars/shakes and 1 meal per day, exercise with calories per week burned 2000+. She will have her consultation with Dr. Lara and then let me know how she would like to proceed. Photos taken today.
[2025-04-23 10:40] VITALS: BP 124/76; PULSE 95; TEMP 35.6; O2SAT 97; BMI 29.2
--- OUTSIDE RECORDS SUMMARY | 2025-04-23 11:04 | XMS_ITS | Clinical Summary ---
Author Organization [facility] Address [address] [place] [phone] Phone Care Team Providers Care Asbestos Siding Mechanic Name Role Phone Jessica Francisco MD Primary Care Provider Allergies No known active allergies Medications multivit-min/iron/ folic acid/K (BARIATRIC MULTIVITAMINS ORAL) Take by mouth. Active calcium carbonate 160 mg calcium (400 mg) Chew Take by mouth. Active biotin 1 mg tablet Take 1,000 mcg by mouth 3 (three) times a day. Active Medication-Free Text Mushroom complex Active omega-3 fatty acids-fish oil 340-1,000 mg Cap Take by mouth daily. Active Family History Relation Status Comments Father Mother Alive Social History Tobacco Use Types Packs/Day Years Used Date Smoking Tobacco: Never Smokeless Tobacco: Never Alcohol Use Standard Drinks/Week Comments Not Currently 0 (1 standard drink = 0.6 oz pur e alcohol) Education Answer Date Recorded Are you interested in more education? Not on maikol e 01/20/2023 Are you concerned about learning? Not on file 01/20/2023 No 01/20/2023 No 01/20/2023 Digital Access Answer Date Recorded No 02/18/2023 No 02/18/2023 Reliable internet access at home? Not on file 02/18/2023 Device with a working camera? Not on file Comments Unknown Sex and Gender Information Value Date Recorded Sex Assigned at Not on file Legal Sex Female 7:59 PM EST Gender Identity Not on file Sexual Orientation Not on file Last Filed Vital Signs Vital Sign Reading Time Taken Comments Blood Pressure 111/75 02/26/2024 10:20 AM EDT Pulse 95 02/26/2024 10:20 AM EDT Temperature 36.6 C (97.8 F) 09/21/2021 7:58 PM EST Respiratory Rate 18 09/21/2021 7:58 PM EST Oxygen Saturation 100% 09/21/2021 7:58 PM EST Inhaled Oxygen Concentration - - Weight 79.7 kg (175 lb 12.8 oz) 024 10:20 AM EDT Height 157.5 cm (5' 2 ) 02/26/2024 10:2 0 AM EDT Body Mass Index 32.15 02/26/2024 10:20 AM EDT Plan of Treatment Health Maintenance Due Date Last Done Comments DEPRESSION SCREENING 2001 HEPATITIS C SCREENING 2007 HIV ONE-TIME SCREENING (18-6 5 YEARS) 2007 PAP SMEAR 2010 COVID-19 VACCINE (2023-2 5 season) 2024 SCREENING FOR DIABETES 09/21/2024 09/21/2021 Adult Td,Tdap Booster 07/05/2027 07/05/2017 SMOKING STATUS SCREENING (On ce After 26 Yrs) Completed 02/26/2024 HEPATITIS A VACCINES Aged Out No long er eligible based on patient's age to complete this topic HIB VACCINES Aged Out No longer eligi ble based on patient's age to complete this topic MENINGOCOCCAL VACCINES (ACWY) Aged Out No longer eligible based on patient's age to complete this topic MENINGOCOCCAL VACCINES (B) Aged Out N o longer eligible based on patient's age to complete this topic PNEUMOCOCCAL VACCINES (0-49 years) Aged Out No longer eligible based on patient's age to complete this topic Medical Devices Not on file Insurance [employer] BLUE BENEFITS ADMINISTRATORS [facility] ADMINISTRAT[employer] [facility] ADMINISTRAT[employer] BENEFITS ADMINISTRATORS [employer] ADMINISTRATORS [employer] BENEFITS ADMINISTRATORS Care Teams Asbestos Siding Mechanic Relationship Specialty Start Date End Date Jessica Francisco MD [address] [place] [address] [place] [id number] PCP - General Internal Medicine 09/21/21 Additional Source Comments The information contained in this document represents components of the legal health record. It is not the complete legal health record.[facility]
--- OUTSIDE RECORDS SUMMARY | 2025-04-23 11:04 | XMS_ITS ---
Author Name [facility] Organization Unknown Encounters Encounter Type Encounter Reason Primary Diagnosis Location Date Ambulatory Other diseases o f tongue [facility] 03/21/2022 Ambulatory [facility] 02/20/2022 Ambulatory Contact with and (suspected) exposure to IR [facility] 02/16/2022 Care Team Organization Name Specialty Phone Email Start Date End [facility] PCP,No Primary Care 03/21/2022 [facility] NO PCP Primary Care 02/20/2022 02/20/2022
--- OUTSIDE RECORDS SUMMARY | 2025-04-23 11:04 | XMS_ITS | Clinical Summary ---
[facility] Address [id number] [place] [id number] Care Team Providers Care Principal Accounts Clerk Name Role Phone Jessica Francisco MD Primary Care Provider Surgical History Surgery Date Site/Laterality Comments OTHER SURGICAL HISTORY PROCEDURE: DENIES PREVIOUS SURGERY SECTION 09/26/2017 PROCEDURE: HISTORICAL DELIVERY TONSILLECTOMY PROCEDURE: HISTORICAL TONSILLECTOMY COLONOSCOPY PROCEDURE: HISTORICAL COLONOSCOPY Medical History Medical History Date Comments Allergic rhinitis DX:Allergic rh initis Esophageal reflux DX:Esophageal reflux Arthritis DX:Arthritis Depressive disorder DX:Depressiv e disorder Bipolar 1 disorder ([facility] V24, [facility] V28) DX:Bipolar 1 disorder ([facility]) Family History Medical History Relation Name Comments Mental illness Father Hyperlipidemia Maternal Grandmother Mental illness Mother Relation Name Status Comments Father Maternal Grandmother Mother Social History Tobacco Use Types Packs/Day Years Used Date Smoking Tobacco: Never Smokeless Tobacco: Never Alcohol Use Standard Drinks/Week Comments No 0 (1 standard drink = 0.6 oz pur e alcohol) Comments Unknown Sex and Gender Information Value Date Recorded Sex Assigned at Not on file Legal Sex Female 12:37 PM EST Gender Identity Not on file Sexual Orientation Not on file Obstetrics History Plan of Treatment Health Maintenance Due Date Last Done Comments DTaP,Tdap,and Td Vaccines (5 - Tdap) 2000 01/23/1994, 06/11/1991, 1989, Additional history exists Cervical Cancer Screening: Pap Smear 2010 COVID-19 Vaccine ( season) 2024 Depression Screening 09/24/2024 Influenza Vaccine (#1) 2025 IPV Vaccines Completed 01/23/1994, 05/25, 1989, Additional [...] patient's age to complete this topic Meningococcal B Vaccine Aged Out No l onger eligible based on patient's age to complete this topic Pneumococcal Vaccine: Pediatrics (0 to 5 Years) and At-Risk Patients (6 to 49 Years) Aged Out No longer eligible based on patient's age to complete this topic RSV Immunization Patients Under 20 months Aged Out No longer eligible based on patient's age to complete this topic Varicella Vaccines Aged Out No longer eligible based on patient's age to complete this topic Care Teams Principal Accounts Clerk Relationship Specialty Start Date End Date Jessica Francisco MD [facility] [address] PCP - General Internal Medicine 06/17/19
--- OUTSIDE RECORDS SUMMARY | 2025-04-23 11:04 | XMS_ITS | Clinical Summary ---
Author Organization [facility] Address [address] [place] [address] Care Team Providers Care Carport Erector Name Role Phone Pcp, No Primary Care [...] patient's age to complete this topic Insurance [facility] [employer] Care Teams Carport Erector Relationship Specialty Start Date End Date Pcp, No PCP - General General Medicine 02/20/22
== END 2025-04-23 11:11 | disposition home or self-care (01) ==
LOC: HO.HBS 10:22
PROVIDERS: PCP Nurse Practitioner Family; Visit Provider Physician Assistant Surgical
DX: M79.3 Panniculitis, unspecified (principal); E66.3 Overweight; Z68.29 Body mass index [BMI] 29.0-29.9, adult; Z90.3 Acquired absence of stomach [part of]; Z98.84 Bariatric surgery status
CPT/HCPCS: 99213

== ENCOUNTER 2025-05-04 10:46 | Outpatient (REF) | payer OTHER, SELFPAY ==
--- OUTSIDE RECORDS SUMMARY | 2025-05-04 11:36 | XMS_ITS | Clinical Summary ---
Author Organization [facility] Address [address] [place] [address] Care Team Providers Care Senior Production Supervisor Name Role Phone Pcp, No Primary [...] patient's age to complete this topic Insurance [facility] Care Teams Senior Production Supervisor Relationship Specialty Start Date End Date Pcp, No PCP - General General Medicine 02/20/22
--- OUTSIDE RECORDS SUMMARY | 2025-05-04 11:36 | XMS_ITS | Clinical Summary ---
Author Organization [facility] Address [address] [place] [phone] Care Team Providers Care Precinct Police Captain Name Role Phone Jessica Francisco MD Primary Care Provider [phone] Surgical History Surgery Date Site/Laterality Comments OTHER SURGICAL HISTORY PROCEDURE: DENIES PREVIOUS SURGERY SECTION 09/26/2017 PROCEDURE: HISTORICAL DELIVERY TONSILLECTOMY PROCEDURE: HISTORICAL TONSILLECTOMY COLONOSCOPY PROCEDURE: HISTORICAL COLONOSCOPY Medical History Medical History Date Comments Allergic rhinitis DX:Allergic rh initis Esophageal reflux DX:Esophageal reflux Arthritis DX:Arthritis Depressive disorder DX:Depressiv e disorder Bipolar 1 disorder ([facility] V24, [facility] V28) DX:Bipolar 1 disorder ([facility]) Family History Medical History Relation Name Comments [...] age to complete this topic Care Teams Precinct Police Captain Relationship Specialty Start Date End Date Jessica Francisco MD [facility] [address] PCP - General Internal Medicine 06/17/19
--- OUTSIDE RECORDS SUMMARY | 2025-05-04 11:36 | XMS_ITS | Clinical Summary ---
Author Organization [facility] Address [address] [place] [phone] Phone Care Team Providers Care Outside Medical Sales Representative Name Role Phone Jessica Francisco [...] topic Medical Devices Not on file Insurance [employer] BLUE BENEFITS ADMINISTRATORS [email or web address] ADMINISTRATORS [email or web address] ADMIN[employer]ENEFITS ADMINISTRATORS [email or web address] ADMINIST[employer]ORS [employer] BENEFITS ADMINISTRATORS Care Teams Outside Medical Sales Representative Relationship Specialty Start Date End Date Jessica Francisco MD [address] [place] [address] [place] [phone] PCP - General Internal Medicine 09/21/21 Additional Source Comments The information contained in this document represents components of the legal health record. It is not the complete legal health record.[facility]
[2025-05-04 12:12] LABS: MANUAL DIFF FLAG NO
[2025-05-04 12:18] LABS: Hematocrit 39.9 % (37.0-47.0); Hemoglobin 13.6 g/dl (12.0-16.0); Imm Gran Abs Auto 0.01 X10*3/uL (0.00-0.03); Imm Gran Pct Auto 0.2 % (0.0-0.4); Lymphocytes Absolute Auto 1.6 X10*3/uL (1.2-4.9); Mean Corpuscular HGB Conc 34.1 g/dl (31.0-35.0); Mean Corpuscular Hemoglobin 29.8 pg (27.0-33.0); Mean Corpuscular Volume 87.3 fL (80.0-98.0); NRBC Abs Auto 0.000 X10*3/uL (0.0-0.012); NRBC Pct Auto 0.0 /100WBC (0.0-0.2); Platelet Count 294 X10*3/uL (160-400); Red Blood Count 4.57 X10*6/uL (4.20-5.50); White Blood Count 5.9 X10*3/uL (4.8-10.8)
== END 2025-05-04 10:47 | disposition home or self-care (01) ==
LOC: HO.10HDL 10:46
PROVIDERS: Visit Provider Internal Medicine
DX: Z00.00 Encounter for general adult medical examination without abnormal findings (principal); Z13.31 Encounter for screening for depression; Z98.84 Bariatric surgery status
CPT/HCPCS: 36415; 85025